=== PATIENT | female | born 1955 | race Caucasian/White ===

== ENCOUNTER → 2018-09-21 | Outpatient (REF) | payer OTHER ==
[2018-09-23 00:07] LABS: Lyme Disease IgG/IgM Antibodie <0.91 ISR (0.00-0.90); Lyme Disease IgM Ab Quantitati <0.80 index (0.00-0.79)
== END ==
LOC: M LAB REF 12:13
DX: Z11.59 Encounter for screening for other viral diseases (principal)

== ENCOUNTER → 2021-10-19 | Outpatient (REF) | payer OTHER ==
[2021-10-19 18:56] LABS: HEPATITIS B CORE ANTIBODY IGM NEGATIVE (NEGATIVE); HEPATITIS B SURFACE ANTIGEN NEGATIVE (NEGATIVE); HEPATITIS C VIRUS ABY INDEX 0.1 INDEX (<0.8)
== END ==
LOC: M LAB REF 16:15
PROVIDERS: ATTEND Registered Nurse
DX: R94.5 Abnormal results of liver function studies (principal)

== ENCOUNTER 2022-12-30 12:04 | Observation (INO) | payer MEDICARE, OTHER ==
[~2022-12-30] VITALS: Ht 160 cm; Wt 90.9 kg
[2022-12-30 13:09] LABS: BASO % 0.3 % (0.0-1.0); EOS # 0.1 10^3/uL (0.0-0.5); EOS % 0.6 % (0.0-3.0); HEMATOCRIT 46.6 % (36.0-47.0); HEMOGLOBIN 15.8 g/dl (12.0-15.5); LYMPH % 6.9 % (24.0-44.0); MEAN CORPUSCULAR HEMOGLOBIN 31.3 pg (27.0-33.0); MEAN CORPUSCULAR HGB CONC 33.9 g/dl (32.0-36.5); MEAN CORPUSCULAR VOLUME 92.3 fl (80.0-96.0); MONO % 11.4 % (2.0-8.0); NEUTROPHILS # 11.1 10^3/uL (1.5-8.5); NEUTROPHILS % 79.5 % (36.0-66.0); PLATELET COUNT, AUTOMATED 456 10^3/uL (150-450); RED BLOOD COUNT 5.05 10^6/uL (4.00-5.40)
[2022-12-30 13:39] LABS: MONO # 1.6 10^3/uL (0.0-0.8)
[2022-12-30 13:44] LABS: ALBUMIN 3.8 G/DL (3.2-5.2); ALKALINE PHOSPHATASE 68 U/L (46-116); ALT/SGPT 90 U/L (7.0-40); AST/SGOT 42 U/L (<34); BILIRUBIN,DIRECT 0.5 MG/DL (<0.4); BILIRUBIN,TOTAL 1.5 MG/DL (0.3-1.2); BLOOD UREA NITROGEN 20 MG/DL (9-23); CALCIUM LEVEL 9.3 MG/DL (8.3-10.6); CARBON DIOXIDE LEVEL 25 MMOL/L (20-31); CHLORIDE LEVEL 103 MMOL/L (98-107); CREATININE FOR GFR 0.88 MG/DL (0.55-1.30); GLOMERULAR FILTRATION RATE > 60.0 (>45); GLUCOSE, FASTING 114 MG/DL (74-106); POTASSIUM SERUM 4.2 MMOL/L (3.5-5.1); SODIUM LEVEL 136 MMOL/L (136-145); TOTAL PROTEIN 6.5 G/DL (5.7-8.2)
[2022-12-30 14:06] LABS: RSV AMPLIFICATION NEGATIVE (NEGATIVE)
[2022-12-30] MEDS ORDERED: SENN-50 PO (15:08)
[2022-12-30] MEDS ORDERED: COLA100C5 PO (15:08)
[2022-12-30] MEDS ORDERED: BACT800T5 PO (15:08)
[2022-12-30] MEDS ORDERED: KEPP1TAB PO (15:08)
[2022-12-30] MEDS ORDERED: SPIR-10 PO (15:08)
[2022-12-30] MEDS ORDERED: DEXA1TA PO (15:08)
[2022-12-30] MEDS ORDERED: C 50TAB PO (15:08)
[2022-12-30] MEDS ORDERED: TOPI25TA10 PO (15:08)
[2022-12-30] MEDS ORDERED: VITA1CAP4 PO (15:08)
[2022-12-30] MEDS ORDERED: BISA10SU4 PR (15:08)
[2022-12-30] MEDS ORDERED: MILKSUS3 PO (15:08)
[2022-12-30] MEDS ORDERED: HEPA100I26 SC (15:08)
[2022-12-30] MEDS ORDERED: RA T500C2 PO (15:08)
[2022-12-30] MEDS ORDERED: BACI1CAP PO (15:08)
[2022-12-30] MEDS ORDERED: PANT40TA29 PO (15:08)
[2022-12-30] MEDS ORDERED: APAP325T4 PO (15:08)
[2022-12-30] MEDS ORDERED: HOME MED LIST COMPLETE! XX SCH (15:10)
[2022-12-30 17:15] VITALS: BP 106/83
[2022-12-30] MEDS ORDERED: BACTRIM 160MG/800MG DS TAB PO SCH (21:00)
[2022-12-30] MEDS ORDERED: MOM 30ML SUSPENSION UDC PO SCH (21:00)
[2022-12-30] MEDS ORDERED: SENOKOT S TAB PO SCH (21:00)
[2022-12-30 21:55] VITALS: BP 118/78
[2022-12-30] MEDS: levETIRAcetam 250MG TABLET (KEPPRA) PO SCH (22:05)
[2022-12-30] MEDS: DOCUSATE SODIUM 100MG CAPSULE PO SCH (22:05)
[2022-12-31 06:00] VITALS: BP 137/87
[2022-12-31 08:24] LABS: BASO # 0.1 10^3/uL (0.0-0.2); BASO % 0.4 % (0.0-1.0); EOS # 0.1 10^3/uL (0.0-0.5); EOS % 0.5 % (0.0-3.0); HEMATOCRIT 43.8 % (36.0-47.0); HEMOGLOBIN 14.6 g/dl (12.0-15.5); LYMPH # 1.2 10^3/uL (1.5-5.0); LYMPH % 9.7 % (24.0-44.0); MEAN CORPUSCULAR HGB CONC 33.3 g/dl (32.0-36.5); MONO # 1.1 10^3/uL (0.0-0.8); MONO % 8.3 % (2.0-8.0); NEUTROPHILS # 10.2 10^3/uL (1.5-8.5); NEUTROPHILS % 79.8 % (36.0-66.0); PLATELET COUNT, AUTOMATED 393 10^3/uL (150-450); RED BLOOD COUNT 4.71 10^6/uL (4.00-5.40); WHITE BLOOD COUNT 12.7 10^3/uL (4.0-10.0)
[2022-12-31] MEDS ORDERED: TOPIRAMATE (TopAMAX) 25 MG TAB PO SCH (09:00)
[2022-12-31] MEDS ORDERED: ASCORBIC ACID 500 MG TAB PO SCH (09:00)
[2022-12-31] MEDS ORDERED: SPIRONOLACTONE 25 MG TAB PO SCH (09:00)
[2022-12-31] MEDS ORDERED: PANTOPRAZOLE 40MG TAB (PROTONIX) PO SCH (09:00)
[2022-12-31] MEDS: levETIRAcetam 250MG TABLET (KEPPRA) PO SCH (10:00)
[2022-12-31] MEDS: DOCUSATE SODIUM 100MG CAPSULE PO SCH (10:01)
[2023-01-01 16:08] LABS: LEVETIRACETAM (KEPPRA) 20.5 ug/mL (10.0-40.0); TOPIRAMATE LEVEL <1.5 ug/mL (2.0-25.0)
[2023-01-31] MEDS ORDERED: PROP10TA56 PO (11:06)
[2023-02-06] MEDS ORDERED: TEMO140C14 PO (15:29)
[2023-02-06] MEDS ORDERED: TEMO5CAP17 PO (15:32)
[2023-02-25] MEDS ORDERED: BACT400T PO (14:51)
[2023-02-25] MEDS ORDERED: ONDA8TAB8 PO (14:59)
[2023-02-28] MEDS ORDERED: ONDA8TAB8 PO (13:58)
[2023-02-28] MEDS ORDERED: BACT400T PO (13:58)
[2023-03-06] MEDS ORDERED: ONDA8TAB8 PO (13:12)
== END 2022-12-31 12:40 ==
LOC: M ED 12:04 → M ED INP 14:43 → ENRESERV 16:09 → M MS5PR 17:05
PROVIDERS: ADMIT Internal Medicine Nephrology; ATTEND Internal Medicine
DX: D72.829 Elevated white blood cell count, unspecified (principal); C71.9 Malignant neoplasm of brain, unspecified; Z98.890 Other specified postprocedural states; I69.851 Hemiplegia and hemiparesis following other cerebrovascular disease affecting right dominant side; I69.820 Aphasia following other cerebrovascular disease; R53.1 Weakness; R74.01 Elevation of levels of liver transaminase levels; K76.89 Other specified diseases of liver; I10 Essential (primary) hypertension; E66.9 Obesity, unspecified; Z87.891 Personal history of nicotine dependence; Z79.899 Other long term (current) drug therapy; Z79.2 Long term (current) use of antibiotics

== ENCOUNTER 2022-12-30 15:16 | Inpatient (IN) | payer MEDICARE, OTHER ==
[~2022-12-30] VITALS: Ht 160 cm; Wt 86.3 kg
[~2022-12-30 15:16] MED LIST: APAP325T4 PO; BACI1CAP PO; BACT800T5 PO; BISA10SU4 PR; C 50TAB PO; COLA100C5 PO; DEXA1TA PO; HEPA100I26 SC; KEPP1TAB PO; MILKSUS3 PO; PANT40TA29 PO; RA T500C2 PO; SENN-50 PO; SPIR-10 PO; TOPI25TA10 PO; VITA1CAP4 PO
[2022-12-31 12:50] VITALS: BP 143/82
[2022-12-31] MEDS ORDERED: ONDANSETRON 4MG TAB PO PRN (14:00)
[2022-12-31] MEDS ORDERED: ACETAMINOPHEN TAB 650MG DOSE (2X325MG) PO PRN (14:00)
[2022-12-31 14:30] VITALS: BP 148/75
[2022-12-31] MEDS: REMEDY PHYTOPLEX Z-GUARD PASTE 113GM TUBE (FROM STOREROOM PRODUCT) TOP SCH ×2 (16:00→21:00)
[2022-12-31] MEDS: LACTOBACILLUS ACIDOPHILUS CAP (BACID) PO SCH (17:16)
[2022-12-31] MEDS: PROPRANOLOL 10 MG TAB PO SCH ×2 (17:16→20:07)
[2022-12-31 20:00] VITALS: BP 128/84
[2022-12-31] MEDS: levETIRAcetam 250MG TABLET (KEPPRA) PO SCH (20:07)
[2022-12-31] MEDS: PANTOPRAZOLE 40MG TAB (PROTONIX) PO SCH (20:07)
[2022-12-31] MEDS: SENNA 8.6 MG TAB (SENOKOT) PO SCH (21:00)
[2022-12-31] MEDS: DOCUSATE SODIUM 100MG CAPSULE PO SCH (21:00)
[2023-01-01 06:00] VITALS: BP 138/82
[2023-01-01 07:29] LABS: BASO # 0.1 10^3/uL (0.0-0.2); BASO % 0.4 % (0.0-1.0); EOS # 0.1 10^3/uL (0.0-0.5); EOS % 0.7 % (0.0-3.0); HEMATOCRIT 43.8 % (36.0-47.0); HEMOGLOBIN 14.7 g/dl (12.0-15.5); LYMPH # 1.6 10^3/uL (1.5-5.0); LYMPH % 10.8 % (24.0-44.0); MEAN CORPUSCULAR HEMOGLOBIN 31.1 pg (27.0-33.0); MEAN CORPUSCULAR HGB CONC 33.6 g/dl (32.0-36.5); MEAN CORPUSCULAR VOLUME 92.8 fl (80.0-96.0); MONO # 1.3 10^3/uL (0.0-0.8); MONO % 8.4 % (2.0-8.0); NEUTROPHILS # 11.8 10^3/uL (1.5-8.5); NEUTROPHILS % 77.9 % (36.0-66.0); PLATELET COUNT, AUTOMATED 409 10^3/uL (150-450); RED BLOOD COUNT 4.72 10^6/uL (4.00-5.40); WHITE BLOOD COUNT 15.1 10^3/uL (4.0-10.0)
[2023-01-01] MEDS: ASCORBIC ACID 500 MG TAB PO SCH (07:52)
[2023-01-01] MEDS: levETIRAcetam 250MG TABLET (KEPPRA) PO SCH ×2 (07:53→21:22)
[2023-01-01] MEDS: PROPRANOLOL 10 MG TAB PO SCH ×3 (07:53→21:22)
[2023-01-01] MEDS: PANTOPRAZOLE 40MG TAB (PROTONIX) PO SCH ×2 (07:53→21:21)
[2023-01-01] MEDS: DOCUSATE SODIUM 100MG CAPSULE PO SCH ×2 (07:53→21:21)
[2023-01-01] MEDS: LACTOBACILLUS ACIDOPHILUS CAP (BACID) PO SCH ×2 (07:53→18:00)
[2023-01-01] MEDS: SPIRONOLACTONE 25 MG TAB PO SCH (07:53)
[2023-01-01] MEDS: TOPIRAMATE (TopAMAX) 25 MG TAB PO SCH (07:54)
[2023-01-01] MEDS: REMEDY PHYTOPLEX Z-GUARD PASTE 113GM TUBE (FROM STOREROOM PRODUCT) TOP SCH ×3 (07:54→21:00)
[2023-01-01 08:04] LABS: ALBUMIN 3.5 G/DL (3.2-5.2); ALKALINE PHOSPHATASE 57 U/L (46-116); ALT/SGPT 76 U/L (7.0-40); AST/SGOT 49 U/L (<34); BILIRUBIN,TOTAL 1.5 MG/DL (0.3-1.2); BLOOD UREA NITROGEN 21 MG/DL (9-23); CALCIUM LEVEL 9.6 MG/DL (8.3-10.6); CARBON DIOXIDE LEVEL 26 MMOL/L (20-31); CHLORIDE LEVEL 107 MMOL/L (98-107); CREATININE FOR GFR 0.82 MG/DL (0.55-1.30); GLOMERULAR FILTRATION RATE > 60.0 (>45); GLUCOSE, FASTING 102 MG/DL (74-106); POTASSIUM SERUM 4.4 MMOL/L (3.5-5.1); SODIUM LEVEL 138 MMOL/L (136-145)
[2023-01-01 13:49] VITALS: BP 145/78
[2023-01-01] MEDS: HEPARIN SOD (PORCINE) 5000UNITS/ML 1ML VIAL/SYRINGE SQ SCH ×2 (14:32→21:23)
[2023-01-01 15:46] VITALS: BP 138/90
[2023-01-01] MEDS: SENNA 8.6 MG TAB (SENOKOT) PO SCH (21:00)
[2023-01-01 21:16] VITALS: BP 142/96
[2023-01-02 05:20] VITALS: BP_SYST 112; BP_SYST 132; BP_DIAS 57; BP_DIAS 88
[2023-01-02] MEDS: SPIRONOLACTONE 25 MG TAB PO SCH (08:14)
[2023-01-02] MEDS: LACTOBACILLUS ACIDOPHILUS CAP (BACID) PO SCH ×2 (08:14→17:01)
[2023-01-02] MEDS: TOPIRAMATE (TopAMAX) 25 MG TAB PO SCH (08:14)
[2023-01-02] MEDS: ASCORBIC ACID 500 MG TAB PO SCH (08:14)
[2023-01-02] MEDS: PANTOPRAZOLE 40MG TAB (PROTONIX) PO SCH ×2 (08:14→20:32)
[2023-01-02] MEDS: HEPARIN SOD (PORCINE) 5000UNITS/ML 1ML VIAL/SYRINGE SQ SCH ×2 (08:14→20:33)
[2023-01-02] MEDS: levETIRAcetam 250MG TABLET (KEPPRA) PO SCH ×2 (08:15→20:33)
[2023-01-02] MEDS: PROPRANOLOL 10 MG TAB PO SCH ×3 (08:15→20:32)
[2023-01-02] MEDS: DOCUSATE SODIUM 100MG CAPSULE PO SCH ×2 (08:15→20:32)
[2023-01-02] MEDS: REMEDY PHYTOPLEX Z-GUARD PASTE 113GM TUBE (FROM STOREROOM PRODUCT) TOP SCH ×3 (08:16→20:33)
[2023-01-02 14:50] VITALS: BP 132/79
[2023-01-02 20:00] VITALS: BP 119/69
[2023-01-02] MEDS: SENNA 8.6 MG TAB (SENOKOT) PO SCH (20:32)
[2023-01-03 06:00] VITALS: BP 142/90
[2023-01-03 06:18] LABS: BASO # 0.1 10^3/uL (0.0-0.2); BASO % 0.6 % (0.0-1.0); EOS % 0.2 % (0.0-3.0); HEMATOCRIT 41.5 % (36.0-47.0); HEMOGLOBIN 13.9 g/dl (12.0-15.5); LYMPH # 1.1 10^3/uL (1.5-5.0); LYMPH % 9.8 % (24.0-44.0); MEAN CORPUSCULAR HGB CONC 33.5 g/dl (32.0-36.5); MEAN CORPUSCULAR VOLUME 92.6 fl (80.0-96.0); MONO # 0.8 10^3/uL (0.0-0.8); MONO % 7.1 % (2.0-8.0); NEUTROPHILS # 8.9 10^3/uL (1.5-8.5); NEUTROPHILS % 81.2 % (36.0-66.0); PLATELET COUNT, AUTOMATED 351 10^3/uL (150-450); RED BLOOD COUNT 4.48 10^6/uL (4.00-5.40); WHITE BLOOD COUNT 10.9 10^3/uL (4.0-10.0)
[2023-01-03 06:40] LABS: BLOOD UREA NITROGEN 19 MG/DL (9-23); CALCIUM LEVEL 9.4 MG/DL (8.3-10.6); CARBON DIOXIDE LEVEL 24 MMOL/L (20-31); CHLORIDE LEVEL 107 MMOL/L (98-107); CREATININE FOR GFR 0.71 MG/DL (0.55-1.30); GLOMERULAR FILTRATION RATE > 60.0 (>45); GLUCOSE, FASTING 114 MG/DL (74-106); POTASSIUM SERUM 4.4 MMOL/L (3.5-5.1); SODIUM LEVEL 140 MMOL/L (136-145)
[2023-01-03] MEDS: REMEDY PHYTOPLEX Z-GUARD PASTE 113GM TUBE (FROM STOREROOM PRODUCT) TOP SCH ×3 (09:00→21:00)
[2023-01-03] MEDS ORDERED: ESCITALOPRAM OXALATE 10 MG TAB (LEXAPRO) PO SCH (09:00)
[2023-01-03] MEDS: ASCORBIC ACID 500 MG TAB PO SCH (09:10)
[2023-01-03] MEDS: TOPIRAMATE (TopAMAX) 25 MG TAB PO SCH (09:10)
[2023-01-03] MEDS: SPIRONOLACTONE 25 MG TAB PO SCH (09:11)
[2023-01-03] MEDS: PANTOPRAZOLE 40MG TAB (PROTONIX) PO SCH ×2 (09:11→21:09)
[2023-01-03] MEDS: levETIRAcetam 250MG TABLET (KEPPRA) PO SCH ×2 (09:11→21:09)
[2023-01-03] MEDS: PROPRANOLOL 10 MG TAB PO SCH ×3 (09:11→21:09)
[2023-01-03] MEDS: LACTOBACILLUS ACIDOPHILUS CAP (BACID) PO SCH ×2 (09:11→17:17)
[2023-01-03] MEDS: DOCUSATE SODIUM 100MG CAPSULE PO SCH ×3 (09:11→21:09)
[2023-01-03] MEDS: HEPARIN SOD (PORCINE) 5000UNITS/ML 1ML VIAL/SYRINGE SQ SCH ×2 (09:12→21:10)
[2023-01-03 14:00] VITALS: BP 123/74
[2023-01-03 20:00] VITALS: BP 154/82
[2023-01-03] MEDS: SENNA 8.6 MG TAB (SENOKOT) PO SCH ×2 (21:00→21:09)
[2023-01-04 05:35] VITALS: BP 165/88
[2023-01-04 05:59] VITALS: BP_SYST 132; BP_SYST 156; BP_DIAS 82; BP_DIAS 92
[2023-01-04] MEDS: SPIRONOLACTONE 25 MG TAB PO SCH (07:51)
[2023-01-04] MEDS: HEPARIN SOD (PORCINE) 5000UNITS/ML 1ML VIAL/SYRINGE SQ SCH ×2 (07:51→20:24)
[2023-01-04] MEDS: DOCUSATE SODIUM 100MG CAPSULE PO SCH ×2 (07:51→20:27)
[2023-01-04] MEDS: PANTOPRAZOLE 40MG TAB (PROTONIX) PO SCH ×2 (07:51→20:25)
[2023-01-04] MEDS: LACTOBACILLUS ACIDOPHILUS CAP (BACID) PO SCH ×2 (07:52→17:55)
[2023-01-04] MEDS: PROPRANOLOL 10 MG TAB PO SCH ×3 (07:52→20:26)
[2023-01-04] MEDS: ASCORBIC ACID 500 MG TAB PO SCH (07:52)
[2023-01-04] MEDS: levETIRAcetam 250MG TABLET (KEPPRA) PO SCH ×2 (07:52→20:25)
[2023-01-04] MEDS: TOPIRAMATE (TopAMAX) 25 MG TAB PO SCH (07:52)
[2023-01-04] MEDS: REMEDY PHYTOPLEX Z-GUARD PASTE 113GM TUBE (FROM STOREROOM PRODUCT) TOP SCH ×3 (07:53→20:27)
[2023-01-04 13:30] VITALS: BP 119/77
[2023-01-04 20:00] VITALS: BP 122/72
[2023-01-04] MEDS: SENNA 8.6 MG TAB (SENOKOT) PO SCH (20:27)
[2023-01-05 06:00] VITALS: BP 134/70
[2023-01-05] MEDS: levETIRAcetam 250MG TABLET (KEPPRA) PO SCH ×2 (08:53→20:43)
[2023-01-05] MEDS: LACTOBACILLUS ACIDOPHILUS CAP (BACID) PO SCH ×2 (08:53→17:15)
[2023-01-05] MEDS: SPIRONOLACTONE 25 MG TAB PO SCH (08:53)
[2023-01-05] MEDS: DOCUSATE SODIUM 100MG CAPSULE PO SCH ×2 (08:53→21:00)
[2023-01-05] MEDS: PANTOPRAZOLE 40MG TAB (PROTONIX) PO SCH ×2 (08:53→20:43)
[2023-01-05] MEDS: ASCORBIC ACID 500 MG TAB PO SCH (08:54)
[2023-01-05] MEDS: HEPARIN SOD (PORCINE) 5000UNITS/ML 1ML VIAL/SYRINGE SQ SCH ×2 (08:54→20:44)
[2023-01-05] MEDS: PROPRANOLOL 10 MG TAB PO SCH ×3 (08:54→20:43)
[2023-01-05] MEDS: TOPIRAMATE (TopAMAX) 25 MG TAB PO SCH (08:54)
[2023-01-05] MEDS: REMEDY PHYTOPLEX Z-GUARD PASTE 113GM TUBE (FROM STOREROOM PRODUCT) TOP SCH ×3 (08:54→21:00)
[2023-01-05] MEDS: LevoFLOXacin 250 MG TABLET PO SCH (11:41)
[2023-01-05 13:46] VITALS: BP 122/78
[2023-01-05] MEDS ORDERED: LACTOBACILLUS ACIDOPHILUS CAP (BACID) PO SCH (18:00)
[2023-01-05 20:00] VITALS: BP 139/81
[2023-01-05] MEDS: SENNA 8.6 MG TAB (SENOKOT) PO SCH (21:00)
[2023-01-06] MEDS: LevoFLOXacin 250 MG TABLET PO SCH (05:27)
[2023-01-06 06:00] VITALS: BP 132/78
[2023-01-06 06:37] LABS: BASO # 0.1 10^3/uL (0.0-0.2); BASO % 0.6 % (0.0-1.0); EOS % 0.4 % (0.0-3.0); HEMATOCRIT 40.4 % (36.0-47.0); HEMOGLOBIN 13.2 g/dl (12.0-15.5); LYMPH # 0.9 10^3/uL (1.5-5.0); LYMPH % 10.4 % (24.0-44.0); MEAN CORPUSCULAR HEMOGLOBIN 31.1 pg (27.0-33.0); MEAN CORPUSCULAR HGB CONC 32.7 g/dl (32.0-36.5); MEAN CORPUSCULAR VOLUME 95.3 fl (80.0-96.0); MONO # 0.6 10^3/uL (0.0-0.8); MONO % 6.8 % (2.0-8.0); NEUTROPHILS # 6.7 10^3/uL (1.5-8.5); PLATELET COUNT, AUTOMATED 297 10^3/uL (150-450); RED BLOOD COUNT 4.24 10^6/uL (4.00-5.40); WHITE BLOOD COUNT 8.3 10^3/uL (4.0-10.0)
[2023-01-06 06:50] LABS: BLOOD UREA NITROGEN 16 MG/DL (9-23); CALCIUM LEVEL 9.6 MG/DL (8.3-10.6); CARBON DIOXIDE LEVEL 25 MMOL/L (20-31); CHLORIDE LEVEL 107 MMOL/L (98-107); CREATININE FOR GFR 0.67 MG/DL (0.55-1.30); GLOMERULAR FILTRATION RATE > 60.0 (>45); GLUCOSE, FASTING 113 MG/DL (74-106); POTASSIUM SERUM 4.1 MMOL/L (3.5-5.1); SODIUM LEVEL 140 MMOL/L (136-145)
[2023-01-06] MEDS: DOCUSATE SODIUM 100MG CAPSULE PO SCH ×2 (07:56→21:00)
[2023-01-06] MEDS: levETIRAcetam 250MG TABLET (KEPPRA) PO SCH ×2 (08:19→20:01)
[2023-01-06] MEDS: PANTOPRAZOLE 40MG TAB (PROTONIX) PO SCH ×2 (08:19→20:02)
[2023-01-06] MEDS: LACTOBACILLUS ACIDOPHILUS CAP (BACID) PO SCH ×2 (08:19→17:05)
[2023-01-06] MEDS: TOPIRAMATE (TopAMAX) 25 MG TAB PO SCH (08:19)
[2023-01-06] MEDS: SPIRONOLACTONE 25 MG TAB PO SCH (08:19)
[2023-01-06] MEDS: PROPRANOLOL 10 MG TAB PO SCH ×3 (08:19→20:05)
[2023-01-06] MEDS: ASCORBIC ACID 500 MG TAB PO SCH (08:20)
[2023-01-06] MEDS: REMEDY PHYTOPLEX Z-GUARD PASTE 113GM TUBE (FROM STOREROOM PRODUCT) TOP SCH ×3 (08:20→21:00)
[2023-01-06] MEDS: HEPARIN SOD (PORCINE) 5000UNITS/ML 1ML VIAL/SYRINGE SQ SCH ×2 (08:20→20:02)
[2023-01-06 14:00] VITALS: BP 121/78
[2023-01-06 19:43] VITALS: BP 124/78
[2023-01-06] MEDS: SENNA 8.6 MG TAB (SENOKOT) PO SCH (21:00)
[2023-01-07 05:53] VITALS: BP 134/89
[2023-01-07] MEDS: LevoFLOXacin 250 MG TABLET PO SCH (05:56)
[2023-01-07] MEDS: REMEDY PHYTOPLEX Z-GUARD PASTE 113GM TUBE (FROM STOREROOM PRODUCT) TOP SCH ×3 (08:09→20:26)
[2023-01-07] MEDS: HEPARIN SOD (PORCINE) 5000UNITS/ML 1ML VIAL/SYRINGE SQ SCH ×2 (08:25→20:25)
[2023-01-07] MEDS: LACTOBACILLUS ACIDOPHILUS CAP (BACID) PO SCH ×2 (08:25→16:52)
[2023-01-07] MEDS: PANTOPRAZOLE 40MG TAB (PROTONIX) PO SCH ×2 (08:26→20:25)
[2023-01-07] MEDS: ASCORBIC ACID 500 MG TAB PO SCH (08:26)
[2023-01-07] MEDS: levETIRAcetam 250MG TABLET (KEPPRA) PO SCH ×2 (08:26→20:25)
[2023-01-07] MEDS: SPIRONOLACTONE 25 MG TAB PO SCH (08:27)
[2023-01-07] MEDS: PROPRANOLOL 10 MG TAB PO SCH ×3 (08:27→20:25)
[2023-01-07] MEDS: TOPIRAMATE (TopAMAX) 25 MG TAB PO SCH (08:27)
[2023-01-07] MEDS: DOCUSATE SODIUM 100MG CAPSULE PO SCH ×2 (08:28→20:25)
[2023-01-07 14:00] VITALS: BP 125/84
[2023-01-07 20:00] VITALS: BP 138/97
[2023-01-07] MEDS: LINEZOLID 600MG TABLET (ZYVOX) PO SCH (20:24)
[2023-01-07] MEDS: SENNA 8.6 MG TAB (SENOKOT) PO SCH ×2 (20:24→20:27)
[2023-01-08 06:00] VITALS: BP 124/82
[2023-01-08] MEDS: HEPARIN SOD (PORCINE) 5000UNITS/ML 1ML VIAL/SYRINGE SQ SCH ×2 (08:06→20:12)
[2023-01-08] MEDS: levETIRAcetam 250MG TABLET (KEPPRA) PO SCH ×2 (08:07→20:11)
[2023-01-08] MEDS: PANTOPRAZOLE 40MG TAB (PROTONIX) PO SCH ×2 (08:07→20:11)
[2023-01-08] MEDS: ASCORBIC ACID 500 MG TAB PO SCH (08:07)
[2023-01-08] MEDS: LACTOBACILLUS ACIDOPHILUS CAP (BACID) PO SCH ×2 (08:07→17:30)
[2023-01-08] MEDS: DOCUSATE SODIUM 100MG CAPSULE PO SCH ×2 (08:08→20:14)
[2023-01-08] MEDS: TOPIRAMATE (TopAMAX) 25 MG TAB PO SCH (08:08)
[2023-01-08] MEDS: PROPRANOLOL 10 MG TAB PO SCH ×3 (08:08→20:12)
[2023-01-08] MEDS: SPIRONOLACTONE 25 MG TAB PO SCH (08:08)
[2023-01-08] MEDS: LINEZOLID 600MG TABLET (ZYVOX) PO SCH ×2 (08:08→20:11)
[2023-01-08] MEDS: REMEDY PHYTOPLEX Z-GUARD PASTE 113GM TUBE (FROM STOREROOM PRODUCT) TOP SCH ×3 (08:09→20:12)
[2023-01-08 10:55] LABS: BASO # 0.1 10^3/uL (0.0-0.2); BASO % 0.5 % (0.0-1.0); EOS # 0.1 10^3/uL (0.0-0.5); EOS % 0.5 % (0.0-3.0); HEMATOCRIT 42.7 % (36.0-47.0); HEMOGLOBIN 14.3 g/dl (12.0-15.5); LYMPH # 0.7 10^3/uL (1.5-5.0); LYMPH % 6.7 % (24.0-44.0); MEAN CORPUSCULAR HEMOGLOBIN 31.7 pg (27.0-33.0); MEAN CORPUSCULAR HGB CONC 33.5 g/dl (32.0-36.5); MEAN CORPUSCULAR VOLUME 94.7 fl (80.0-96.0); MONO % 9.5 % (2.0-8.0); NEUTROPHILS # 8.8 10^3/uL (1.5-8.5); NEUTROPHILS % 82.2 % (36.0-66.0); PLATELET COUNT, AUTOMATED 330 10^3/uL (150-450); RED BLOOD COUNT 4.51 10^6/uL (4.00-5.40); WHITE BLOOD COUNT 10.7 10^3/uL (4.0-10.0)
[2023-01-08 11:29] LABS: BLOOD UREA NITROGEN 20 MG/DL (9-23); CARBON DIOXIDE LEVEL 23 MMOL/L (20-31); CHLORIDE LEVEL 106 MMOL/L (98-107); CREATININE FOR GFR 0.67 MG/DL (0.55-1.30); GLOMERULAR FILTRATION RATE > 60.0 (>45); GLUCOSE, FASTING 109 MG/DL (74-106); POTASSIUM SERUM 4.1 MMOL/L (3.5-5.1); SODIUM LEVEL 139 MMOL/L (136-145)
[2023-01-08 14:06] VITALS: BP 130/84
[2023-01-08 20:00] VITALS: BP 132/70
[2023-01-08] MEDS: SENNA 8.6 MG TAB (SENOKOT) PO SCH (20:14)
[2023-01-09 06:00] VITALS: BP 131/82
[2023-01-09] MEDS: DOCUSATE SODIUM 100MG CAPSULE PO SCH ×2 (07:58→20:04)
[2023-01-09] MEDS: ASCORBIC ACID 500 MG TAB PO SCH (07:58)
[2023-01-09] MEDS: PANTOPRAZOLE 40MG TAB (PROTONIX) PO SCH ×2 (07:58→20:03)
[2023-01-09] MEDS: HEPARIN SOD (PORCINE) 5000UNITS/ML 1ML VIAL/SYRINGE SQ SCH ×2 (07:58→20:07)
[2023-01-09] MEDS: SPIRONOLACTONE 25 MG TAB PO SCH (07:58)
[2023-01-09] MEDS: LACTOBACILLUS ACIDOPHILUS CAP (BACID) PO SCH ×2 (07:58→17:03)
[2023-01-09] MEDS: TOPIRAMATE (TopAMAX) 25 MG TAB PO SCH (07:58)
[2023-01-09] MEDS: levETIRAcetam 250MG TABLET (KEPPRA) PO SCH ×2 (07:59→20:03)
[2023-01-09] MEDS: LINEZOLID 600MG TABLET (ZYVOX) PO SCH ×2 (07:59→20:03)
[2023-01-09] MEDS: REMEDY PHYTOPLEX Z-GUARD PASTE 113GM TUBE (FROM STOREROOM PRODUCT) TOP SCH ×3 (07:59→20:04)
[2023-01-09] MEDS: PROPRANOLOL 10 MG TAB PO SCH ×3 (07:59→20:03)
[2023-01-09 14:00] VITALS: BP 126/69
[2023-01-09 20:00] VITALS: BP 138/88
[2023-01-09] MEDS: SENNA 8.6 MG TAB (SENOKOT) PO SCH (20:04)
[2023-01-10 05:07] VITALS: BP 124/77
[2023-01-10 06:41] LABS: BASO # 0.1 10^3/uL (0.0-0.2); BASO % 0.6 % (0.0-1.0); EOS % 0.2 % (0.0-3.0); HEMATOCRIT 41.3 % (36.0-47.0); HEMOGLOBIN 13.5 g/dl (12.0-15.5); LYMPH # 0.8 10^3/uL (1.5-5.0); LYMPH % 10.1 % (24.0-44.0); MEAN CORPUSCULAR HEMOGLOBIN 30.8 pg (27.0-33.0); MEAN CORPUSCULAR HGB CONC 32.7 g/dl (32.0-36.5); MEAN CORPUSCULAR VOLUME 94.3 fl (80.0-96.0); MONO # 0.6 10^3/uL (0.0-0.8); MONO % 7.5 % (2.0-8.0); NEUTROPHILS # 6.6 10^3/uL (1.5-8.5); NEUTROPHILS % 80.9 % (36.0-66.0); PLATELET COUNT, AUTOMATED 264 10^3/uL (150-450); RED BLOOD COUNT 4.38 10^6/uL (4.00-5.40); WHITE BLOOD COUNT 8.1 10^3/uL (4.0-10.0)
[2023-01-10 06:49] LABS: BLOOD UREA NITROGEN 16 MG/DL (9-23); CALCIUM LEVEL 9.3 MG/DL (8.3-10.6); CARBON DIOXIDE LEVEL 26 MMOL/L (20-31); CHLORIDE LEVEL 107 MMOL/L (98-107); CREATININE FOR GFR 0.65 MG/DL (0.55-1.30); GLOMERULAR FILTRATION RATE > 60.0 (>45); GLUCOSE, FASTING 105 MG/DL (74-106); POTASSIUM SERUM 4.1 MMOL/L (3.5-5.1); SODIUM LEVEL 140 MMOL/L (136-145)
[2023-01-10] MEDS: PANTOPRAZOLE 40MG TAB (PROTONIX) PO SCH ×2 (08:21→20:33)
[2023-01-10] MEDS: TOPIRAMATE (TopAMAX) 25 MG TAB PO SCH (08:21)
[2023-01-10] MEDS: HEPARIN SOD (PORCINE) 5000UNITS/ML 1ML VIAL/SYRINGE SQ SCH (08:21)
[2023-01-10] MEDS: LACTOBACILLUS ACIDOPHILUS CAP (BACID) PO SCH ×2 (08:22→17:40)
[2023-01-10] MEDS: SPIRONOLACTONE 25 MG TAB PO SCH (08:22)
[2023-01-10] MEDS: ASCORBIC ACID 500 MG TAB PO SCH (08:22)
[2023-01-10] MEDS: levETIRAcetam 250MG TABLET (KEPPRA) PO SCH ×2 (08:22→20:34)
[2023-01-10] MEDS: LINEZOLID 600MG TABLET (ZYVOX) PO SCH ×2 (08:22→20:34)
[2023-01-10] MEDS: DOCUSATE SODIUM 100MG CAPSULE PO SCH ×2 (08:23→21:00)
[2023-01-10] MEDS: PROPRANOLOL 10 MG TAB PO SCH ×3 (08:26→20:34)
[2023-01-10] MEDS: REMEDY PHYTOPLEX Z-GUARD PASTE 113GM TUBE (FROM STOREROOM PRODUCT) TOP SCH ×3 (08:26→21:00)
[2023-01-10 14:00] VITALS: BP 122/81
[2023-01-10 20:00] VITALS: BP 120/61
[2023-01-10] MEDS: SENNA 8.6 MG TAB (SENOKOT) PO SCH (21:00)
[2023-01-11 06:00] VITALS: BP 136/92
[2023-01-11] MEDS: DOCUSATE SODIUM 100MG CAPSULE PO SCH ×2 (09:00→21:00)
[2023-01-11] MEDS: REMEDY PHYTOPLEX Z-GUARD PASTE 113GM TUBE (FROM STOREROOM PRODUCT) TOP SCH ×3 (09:00→21:00)
[2023-01-11] MEDS: levETIRAcetam 250MG TABLET (KEPPRA) PO SCH ×2 (09:29→20:17)
[2023-01-11] MEDS: PANTOPRAZOLE 40MG TAB (PROTONIX) PO SCH ×2 (09:30→20:17)
[2023-01-11] MEDS: ASCORBIC ACID 500 MG TAB PO SCH (09:30)
[2023-01-11] MEDS: LINEZOLID 600MG TABLET (ZYVOX) PO SCH ×2 (09:30→20:17)
[2023-01-11] MEDS: PROPRANOLOL 10 MG TAB PO SCH ×3 (09:30→20:17)
[2023-01-11] MEDS: LACTOBACILLUS ACIDOPHILUS CAP (BACID) PO SCH ×2 (09:30→17:10)
[2023-01-11] MEDS: SPIRONOLACTONE 25 MG TAB PO SCH (09:31)
[2023-01-11] MEDS: TOPIRAMATE (TopAMAX) 25 MG TAB PO SCH (09:31)
[2023-01-11 14:00] VITALS: BP 129/79
[2023-01-11 20:00] VITALS: BP 140/83
[2023-01-11] MEDS: SENNA 8.6 MG TAB (SENOKOT) PO SCH (21:00)
[2023-01-12 06:00] VITALS: BP 148/96
[2023-01-12] MEDS: REMEDY PHYTOPLEX Z-GUARD PASTE 113GM TUBE (FROM STOREROOM PRODUCT) TOP SCH ×3 (09:00→21:00)
[2023-01-12] MEDS: DOCUSATE SODIUM 100MG CAPSULE PO SCH ×2 (09:00→21:00)
[2023-01-12] MEDS: PROPRANOLOL 10 MG TAB PO SCH ×3 (09:40→20:12)
[2023-01-12] MEDS: SPIRONOLACTONE 25 MG TAB PO SCH (09:40)
[2023-01-12] MEDS: LACTOBACILLUS ACIDOPHILUS CAP (BACID) PO SCH ×2 (09:40→16:36)
[2023-01-12] MEDS: levETIRAcetam 250MG TABLET (KEPPRA) PO SCH ×2 (09:41→20:12)
[2023-01-12] MEDS: ASCORBIC ACID 500 MG TAB PO SCH (09:41)
[2023-01-12] MEDS: PANTOPRAZOLE 40MG TAB (PROTONIX) PO SCH ×2 (09:41→20:11)
[2023-01-12] MEDS: TOPIRAMATE (TopAMAX) 25 MG TAB PO SCH (09:41)
[2023-01-12] MEDS: LINEZOLID 600MG TABLET (ZYVOX) PO SCH (09:42)
[2023-01-12 13:44] VITALS: BP 117/75
[2023-01-12 20:00] VITALS: BP 135/89
[2023-01-12] MEDS: SENNA 8.6 MG TAB (SENOKOT) PO SCH (21:00)
[2023-01-13 06:00] VITALS: BP 136/88
[2023-01-13 07:26] LABS: BASO % 0.3 % (0.0-1.0); EOS % 0.1 % (0.0-3.0); HEMATOCRIT 43.6 % (36.0-47.0); HEMOGLOBIN 14.5 g/dl (12.0-15.5); LYMPH # 0.7 10^3/uL (1.5-5.0); LYMPH % 9.1 % (24.0-44.0); MEAN CORPUSCULAR HEMOGLOBIN 31.7 pg (27.0-33.0); MEAN CORPUSCULAR HGB CONC 33.3 g/dl (32.0-36.5); MEAN CORPUSCULAR VOLUME 95.4 fl (80.0-96.0); MONO # 0.5 10^3/uL (0.0-0.8); MONO % 7.1 % (2.0-8.0); NEUTROPHILS # 6.1 10^3/uL (1.5-8.5); PLATELET COUNT, AUTOMATED 243 10^3/uL (150-450); RED BLOOD COUNT 4.57 10^6/uL (4.00-5.40); WHITE BLOOD COUNT 7.4 10^3/uL (4.0-10.0)
[2023-01-13 08:19] LABS: BLOOD UREA NITROGEN 18 MG/DL (9-23); CALCIUM LEVEL 9.3 MG/DL (8.3-10.6); CARBON DIOXIDE LEVEL 24 MMOL/L (20-31); CHLORIDE LEVEL 107 MMOL/L (98-107); CREATININE FOR GFR 0.59 MG/DL (0.55-1.30); GLOMERULAR FILTRATION RATE > 60.0 (>45); GLUCOSE, FASTING 99 MG/DL (74-106); SODIUM LEVEL 140 MMOL/L (136-145)
[2023-01-13] MEDS: DOCUSATE SODIUM 100MG CAPSULE PO SCH ×2 (09:00→20:09)
[2023-01-13] MEDS: REMEDY PHYTOPLEX Z-GUARD PASTE 113GM TUBE (FROM STOREROOM PRODUCT) TOP SCH ×3 (09:00→20:09)
[2023-01-13] MEDS: ASCORBIC ACID 500 MG TAB PO SCH (10:04)
[2023-01-13] MEDS: LACTOBACILLUS ACIDOPHILUS CAP (BACID) PO SCH ×2 (10:04→17:29)
[2023-01-13] MEDS: SPIRONOLACTONE 25 MG TAB PO SCH (10:04)
[2023-01-13] MEDS: TOPIRAMATE (TopAMAX) 25 MG TAB PO SCH (10:04)
[2023-01-13] MEDS: PANTOPRAZOLE 40MG TAB (PROTONIX) PO SCH ×2 (10:04→20:09)
[2023-01-13] MEDS: levETIRAcetam 250MG TABLET (KEPPRA) PO SCH ×2 (10:05→20:08)
[2023-01-13] MEDS: PROPRANOLOL 10 MG TAB PO SCH ×3 (10:05→20:08)
[2023-01-13] MEDS ORDERED: SPIR-10 PO (10:37)
[2023-01-13] MEDS ORDERED: KEPP1TAB PO (10:37)
[2023-01-13] MEDS ORDERED: DEXA1TA PO (10:37)
[2023-01-13] MEDS ORDERED: TOPI25TA10 PO (10:37)
[2023-01-13] MEDS ORDERED: PANT40TA29 PO (10:37)
[2023-01-13 15:01] VITALS: BP 142/88
[2023-01-13 20:00] VITALS: BP 150/88
[2023-01-13] MEDS: SENNA 8.6 MG TAB (SENOKOT) PO SCH (20:09)
[2023-01-14 05:22] VITALS: BP 128/70
[2023-01-14] MEDS: DOCUSATE SODIUM 100MG CAPSULE PO SCH (09:00)
[2023-01-14] MEDS: REMEDY PHYTOPLEX Z-GUARD PASTE 113GM TUBE (FROM STOREROOM PRODUCT) TOP SCH (09:00)
[2023-01-14] MEDS: PANTOPRAZOLE 40MG TAB (PROTONIX) PO SCH (09:48)
[2023-01-14] MEDS: LACTOBACILLUS ACIDOPHILUS CAP (BACID) PO SCH (09:48)
[2023-01-14] MEDS: ASCORBIC ACID 500 MG TAB PO SCH (09:49)
[2023-01-14] MEDS: levETIRAcetam 250MG TABLET (KEPPRA) PO SCH (09:49)
[2023-01-14] MEDS: TOPIRAMATE (TopAMAX) 25 MG TAB PO SCH (09:49)
[2023-01-14] MEDS: SPIRONOLACTONE 25 MG TAB PO SCH (09:49)
[2023-01-14 09:50] VITALS: BP 128/70
[2023-01-14] MEDS: PROPRANOLOL 10 MG TAB PO SCH (09:50)
== END 2023-01-14 10:30 | disposition home or self-care (01) | DRG 55 ==
LOC: M PM&R 12-31 12:45
PROVIDERS: ADMIT Physical Medicine & Rehabilitation; ATTEND Physical Medicine & Rehabilitation
DX: C71.1 Malignant neoplasm of frontal lobe (principal); I69.151 Hemiplegia and hemiparesis following nontraumatic intracerebral hemorrhage affecting right dominant side; N39.0 Urinary tract infection, site not specified; I69.120 Aphasia following nontraumatic intracerebral hemorrhage; G40.909 Epilepsy, unspecified, not intractable, without status epilepticus; I10 Essential (primary) hypertension; R74.01 Elevation of levels of liver transaminase levels; B95.7 Other staphylococcus as the cause of diseases classified elsewhere; R26.89 Other abnormalities of gait and mobility; I69.198 Other sequelae of nontraumatic intracerebral hemorrhage; I69.122 Dysarthria following nontraumatic intracerebral hemorrhage; R00.0 Tachycardia, unspecified; Z79.899 Other long term (current) drug therapy; F41.8 Other specified anxiety disorders

== ENCOUNTER → 2023-01-31 | Outpatient (CLI) | payer MEDICARE, OTHER ==
[~2023-01-31] MED LIST changes: +PROP10TA56 PO; +TEMO140C14 PO; +TEMO5CAP17 PO
== END ==
LOC: M ONCR 10:13
PROVIDERS: ATTEND General Practice
DX: C71.1 Malignant neoplasm of frontal lobe (principal); I10 Essential (primary) hypertension; K21.9 Gastro-esophageal reflux disease without esophagitis; Z79.899 Other long term (current) drug therapy; Z80.6 Family history of leukemia; Z87.891 Personal history of nicotine dependence

== ENCOUNTER 2023-02-10 10:34 | Outpatient (RCR) | payer MEDICARE, OTHER ==
[2023-02-13] MEDS ORDERED: TEMO5CAP17 PO (10:53)
[2023-02-13] MEDS ORDERED: TOPA1TAB PO (11:58)
== END 2023-02-14 ==
LOC: M ONCR 10:34
PROVIDERS: ATTEND General Practice
DX: C71.1 Malignant neoplasm of frontal lobe (principal)

== ENCOUNTER 2023-02-12 11:07 | Outpatient (RCR) | payer MEDICARE, OTHER ==
[2023-02-13] MEDS ORDERED: TEMO5CAP17 PO (10:53)
[2023-02-13] MEDS ORDERED: TOPA1TAB PO (11:58)
== END 2023-02-14 ==
LOC: M PT 11:07
PROVIDERS: ATTEND Physical Medicine & Rehabilitation
DX: R26.9 Unspecified abnormalities of gait and mobility (principal); R47.1 Dysarthria and anarthria

== ENCOUNTER 2023-03-12 11:30 | Outpatient (RCR) | payer MEDICARE, OTHER ==
[~2023-03-12 11:30] MED LIST changes: +BACT400T PO; +ONDA8TAB8 PO; +TOPA1TAB PO
[2023-03-14] MEDS ORDERED: DEXA1TA PO ×2 (11:53→16:32)
== END 2023-03-16 ==
LOC: M ST 11:30
PROVIDERS: ATTEND Physical Medicine & Rehabilitation
DX: R26.9 Unspecified abnormalities of gait and mobility (principal); G93.9 Disorder of brain, unspecified; R47.1 Dysarthria and anarthria

== ENCOUNTER 2023-03-14 11:00 | Outpatient (RCR) | payer MEDICARE, MEDICAID, OTHER ==
[2023-03-14] MEDS ORDERED: DEXA1TA PO ×2 (11:53→16:32)
== END 2023-03-16 ==
LOC: M ONCR 11:00
PROVIDERS: ATTEND General Practice
DX: C71.1 Malignant neoplasm of frontal lobe (principal)

== ENCOUNTER 2023-03-26 12:30 | Outpatient (RCR) | payer MEDICARE, OTHER ==
[2023-03-28] MEDS ORDERED: BACT400T PO (10:34)
[2023-04-01] MEDS ORDERED: DEXA4TA PO (12:23)
[2023-04-03] MEDS ORDERED: DEXA4TA PO (11:55)
[2023-04-07] MEDS ORDERED: DEXA4TA PO ×2 (11:56→12:45)
[2023-04-08] MEDS ORDERED: DEXA4TA PO (12:53)
[2023-04-08] MEDS ORDERED: ONDA8TAB8 PO (15:17)
[2023-04-09] MEDS ORDERED: MIRA1POW3 PO (15:32)
[2023-04-09] MEDS ORDERED: VITA100093 PO (15:32)
[2023-04-10] MEDS ORDERED: KEPP250T5 PO (07:50)
== END 2023-04-16 ==
LOC: M OT 12:30
PROVIDERS: ATTEND Physical Medicine & Rehabilitation
DX: R26.89 Other abnormalities of gait and mobility (principal)

== ENCOUNTER 2023-04-09 11:31 | Inpatient (IN) | payer MEDICARE, OTHER ==
[~2023-04-09] VITALS: Ht 160 cm; Wt 95.8 kg
[~2023-04-09 11:31] MED LIST changes: +DEXA4TA PO
[2023-04-09 13:14] LABS: BASO % 0.2 % (0.0-1.0); EOS % 0.1 % (0.0-3.0); HEMATOCRIT 40.5 % (36.0-47.0); HEMOGLOBIN 14.7 g/dl (12.0-15.5); LYMPH # 0.1 10^3/uL (1.5-5.0); LYMPH % 1.2 % (24.0-44.0); MEAN CORPUSCULAR HEMOGLOBIN 34.9 pg (27.0-33.0); MEAN CORPUSCULAR HGB CONC 36.3 g/dl (32.0-36.5); MEAN CORPUSCULAR VOLUME 96.2 fl (80.0-96.0); MONO # 0.8 10^3/uL (0.0-0.8); MONO % 7.3 % (2.0-8.0); NEUTROPHILS # 9.3 10^3/uL (1.5-8.5); NEUTROPHILS % 89.5 % (36.0-66.0); RED BLOOD COUNT 4.21 10^6/uL (4.00-5.40); WHITE BLOOD COUNT 10.4 10^3/uL (4.0-10.0)
[2023-04-09 13:18] LABS: BLOOD UREA NITROGEN 34 MG/DL (9-23); CALCIUM LEVEL 9.4 MG/DL (8.3-10.6); CARBON DIOXIDE LEVEL 23 MMOL/L (20-31); CHLORIDE LEVEL 106 MMOL/L (98-107); CK-MB VALUE MASS 4.6 NG/ML (<3.6); CPK CREATINE PHOSPHOKINASE 38 U/L (34-145); GLOMERULAR FILTRATION RATE > 60.0 (>45); GLUCOSE, FASTING 241 MG/DL (74-106); MAGNESIUM LEVEL 2.2 MG/DL (1.8-2.4); POTASSIUM SERUM 3.9 MMOL/L (3.5-5.1); SODIUM LEVEL 136 MMOL/L (136-145)
[2023-04-09 13:20] LABS: FREE T4 0.78 NG/DL (0.89-1.76)
[2023-04-09 13:23] LABS: INR 0.99; PARTIAL THROMBOPLASTIN TIME 22.3 SECONDS (24.8-34.2); PROTHROMBIN TIME 13.3 SECONDS (12.5-14.5)
[2023-04-09 13:53] LABS: PLATELET COUNT, AUTOMATED 58 10^3/uL (150-450)
[2023-04-09 14:40] LABS: CK-MB VALUE MASS 4.6 NG/ML (<3.6)
[2023-04-09 14:42] LABS: MB/CK RELATIVE INDEX 13.14 (< OR =4)
[2023-04-09 14:51] LABS: RSV AMPLIFICATION NEGATIVE (NEGATIVE)
[2023-04-09] MEDS ORDERED: levETIRAcetam INJection 1,000 MG in D5W 100 ML IV ONE (14:55)
[2023-04-09] MEDS ORDERED: NS 500 ML IV ONE (15:10)
[2023-04-09] MEDS ORDERED: LORazepam 2 MG/ML 1ML VIAL IV PRN (15:10)
[2023-04-09] MEDS ORDERED: D5W/0.45% SODIUM CHLORIDE 1,000 ML IV SCH (15:20)
[2023-04-09] MEDS ORDERED: VITA100093 PO (15:32)
[2023-04-09] MEDS ORDERED: MIRA1POW3 PO (15:32)
[2023-04-09] MEDS ORDERED: HOME MED LIST COMPLETE! XX SCH (15:35)
[2023-04-09] MEDS ORDERED: MIRALAX *UNIT DOSE* 17GM PACKET PO PRN (16:05)
[2023-04-09] MEDS ORDERED: ACETAMINOPHEN TAB 650MG DOSE (2X325MG) PO PRN (16:05)
[2023-04-09 18:10] VITALS: BP 139/94; TEMP 97; O2SAT 95
[2023-04-09] MEDS: PROPRANOLOL 10 MG TAB PO SCH ×2 (18:25→20:24)
[2023-04-09 19:38] VITALS: BP 110/76; TEMP 96.9; O2SAT 93
[2023-04-09] MEDS: dexAMETHasone 4 MG TAB PO SCH (20:21)
[2023-04-09] MEDS ORDERED: PROPRANOLOL 10 MG TAB PO SCH (21:00)
[2023-04-10] VITALS (15 sets, daily range): BP systolic 112–190; BP diastolic 59–118; TEMP 96.4–98.1; O2SAT 94–97
[2023-04-10 02:40] LABS: MAGNESIUM LEVEL 1.9 MG/DL (1.8-2.4); POTASSIUM SERUM 4.3 MMOL/L (3.5-5.1)
[2023-04-10] MEDS ORDERED: levETIRAcetam INJection 1,000 MG in D5W 100 ML IV SCH ×4 (03:00)
[2023-04-10 05:37] LABS: HEMATOCRIT 37.8 % (36.0-47.0); HEMOGLOBIN 13.5 g/dl (12.0-15.5); MEAN CORPUSCULAR HEMOGLOBIN 34.4 pg (27.0-33.0); MEAN CORPUSCULAR HGB CONC 35.7 g/dl (32.0-36.5); MEAN CORPUSCULAR VOLUME 96.4 fl (80.0-96.0); RED BLOOD COUNT 3.92 10^6/uL (4.00-5.40); WHITE BLOOD COUNT 6.5 10^3/uL (4.0-10.0)
[2023-04-10 05:42] LABS: PLATELET COUNT, AUTOMATED 38 10^3/uL (150-450)
[2023-04-10 06:00] LABS: BLOOD UREA NITROGEN 21 MG/DL (9-23); CALCIUM LEVEL 8.9 MG/DL (8.3-10.6); CARBON DIOXIDE LEVEL 23 MMOL/L (20-31); CHLORIDE LEVEL 102 MMOL/L (98-107); CREATININE FOR GFR 0.45 MG/DL (0.55-1.30); GLOMERULAR FILTRATION RATE > 60.0 (>45); GLUCOSE, FASTING 226 MG/DL (74-106); SODIUM LEVEL 135 MMOL/L (136-145)
[2023-04-10] MEDS ORDERED: MAGNESIUM OXIDE 400MG TAB (MAG-OX) PO ONE (06:00)
[2023-04-10 06:29] LABS: APPEARANCE, URINE HAZY (CLEAR); BILIRUBIN, URINE AUTO NEGATIVE (NEGATIVE); COLOR, URINE YELLOW (YELLOW); GLUCOSE, URINE (UA) AUTO 3+ mg/dL (NEGATIVE); KETONE, URINE AUTO TRACE mg/dL (NEGATIVE); PROTEIN, URINE AUTO 1+ mg/dL (NEGATIVE); SPECIFIC GRAVITY URINE AUTO 1.036 (1.002-1.035)
[2023-04-10 06:30] LABS: BACTERIA, URINE AUTO 2+ (NEGATIVE); BLOOD, URINE BLOOD NEGATIVE (NEGATIVE); LEUKOCYTE ESTERASE, URINE AUTO 2+ (NEGATIVE); NITRITE, URINE AUTO POSITIVE (NEGATIVE); RBC, URINE AUTO 6 /HPF (0-3); WBC, URINE AUTO 41 /HPF (0-3)
[2023-04-10 06:31] LABS: CALCIUM OXALATE CRYSTALS SMALL; MUCUS, URINE SMALL (NEGATIVE); SQUAMOUS EPITHELIAL CELL UR AU 1 /HPF (0-6)
[2023-04-10] MEDS ORDERED: KEPP250T5 PO (07:50)
[2023-04-10] MEDS ORDERED: ADENOSINE 6MG 2ML INJECTION IV STA ×3 (08:01→08:13)
[2023-04-10] MEDS: METOPROLOL 5 MG/5 ML VIAL IV SCH ×3 (08:19→08:25)
[2023-04-10] MEDS ORDERED: TEMOZOLOMIDE 140 MG PO SCH (09:00)
[2023-04-10] MEDS: BACTRIM 80MG/400MG TAB PO SCH (09:23)
[2023-04-10] MEDS: levETIRAcetam 250MG TABLET (KEPPRA) PO SCH ×2 (09:23→20:55)
[2023-04-10] MEDS: VITAMIN D 1,000 INTERNATIONAL UNITS TABLET PO SCH (09:23)
[2023-04-10] MEDS: TOPIRAMATE (TopAMAX) 25 MG TAB PO SCH (09:24)
[2023-04-10] MEDS: ASCORBIC ACID 500 MG TAB PO SCH (09:24)
[2023-04-10] MEDS: dexAMETHasone 4 MG TAB PO SCH ×2 (09:25→20:56)
[2023-04-10] MEDS: SPIRONOLACTONE 25 MG TAB PO SCH (09:25)
[2023-04-10] MEDS: PROPRANOLOL 10 MG TAB PO SCH ×3 (09:26→20:56)
[2023-04-10] MEDS: METOPROLOL TART 25 MG TABLET PO SCH ×4 (09:27→23:53)
[2023-04-10] MEDS: TEMOZOLOMIDE 100 MG PO SCH (09:58)
[2023-04-10] MEDS: TEMOZOLOMIDE 20 MG PO SCH (09:58)
[2023-04-10] MEDS: TEMOZOLOMIDE 5 MG PO SCH (09:59)
[2023-04-10] MEDS: ONDANSETRON 4MG ORAL DISINTEGRATING TAB PO SCH (10:37)
[2023-04-10 21:36] LABS: MB/CK RELATIVE INDEX 15.62 (< OR =4)
[2023-04-11 03:08] VITALS: BP 134/84; TEMP 96.8; O2SAT 93
[2023-04-11] MEDS: METOPROLOL TART 25 MG TABLET PO SCH (05:03)
[2023-04-11 05:30] LABS: HEMATOCRIT 37.4 % (36.0-47.0); HEMOGLOBIN 13.3 g/dl (12.0-15.5); MEAN CORPUSCULAR HEMOGLOBIN 34.3 pg (27.0-33.0); MEAN CORPUSCULAR HGB CONC 35.6 g/dl (32.0-36.5); MEAN CORPUSCULAR VOLUME 96.4 fl (80.0-96.0); PLATELET COUNT, AUTOMATED 35 10^3/uL (150-450); RED BLOOD COUNT 3.88 10^6/uL (4.00-5.40); WHITE BLOOD COUNT 6.6 10^3/uL (4.0-10.0)
[2023-04-11 05:55] LABS: BLOOD UREA NITROGEN 25 MG/DL (9-23); CALCIUM LEVEL 8.9 MG/DL (8.3-10.6); CARBON DIOXIDE LEVEL 24 MMOL/L (20-31); CHLORIDE LEVEL 103 MMOL/L (98-107); CK-MB VALUE MASS 5.6 NG/ML (<3.6); CPK CREATINE PHOSPHOKINASE 29 U/L (34-145); CREATININE FOR GFR 0.45 MG/DL (0.55-1.30); GLOMERULAR FILTRATION RATE > 60.0 (>45); GLUCOSE, FASTING 237 MG/DL (74-106); MB/CK RELATIVE INDEX 19.31 (< OR =4); SODIUM LEVEL 136 MMOL/L (136-145)
[2023-04-11 07:26] VITALS: BP 137/98; TEMP 98.4; O2SAT 95
[2023-04-11] MEDS: BACTRIM 80MG/400MG TAB PO SCH (09:03)
[2023-04-11] MEDS: levETIRAcetam 250MG TABLET (KEPPRA) PO SCH ×2 (09:03→20:42)
[2023-04-11] MEDS: TOPIRAMATE (TopAMAX) 25 MG TAB PO SCH (09:04)
[2023-04-11] MEDS: ONDANSETRON 4MG ORAL DISINTEGRATING TAB PO SCH (09:04)
[2023-04-11] MEDS: VITAMIN D 1,000 INTERNATIONAL UNITS TABLET PO SCH (09:04)
[2023-04-11] MEDS: SPIRONOLACTONE 25 MG TAB PO SCH (09:04)
[2023-04-11] MEDS: ASCORBIC ACID 500 MG TAB PO SCH (09:04)
[2023-04-11] MEDS: TEMOZOLOMIDE 5 MG PO SCH (09:05)
[2023-04-11] MEDS: TEMOZOLOMIDE 100 MG PO SCH (09:05)
[2023-04-11] MEDS: TEMOZOLOMIDE 20 MG PO SCH (09:05)
[2023-04-11] MEDS: dexAMETHasone 4 MG TAB PO SCH ×2 (09:05→20:42)
[2023-04-11] MEDS: PROPRANOLOL 10 MG TAB PO SCH ×3 (09:05→20:42)
[2023-04-11] MEDS: METOPROLOL SUCC (TopROL XL) 50MG **XL** TAB PO SCH ×2 (09:06→20:43)
[2023-04-11 12:05] VITALS: BP 129/73; TEMP 97.2; O2SAT 93
[2023-04-11 15:48] VITALS: BP 132/90; TEMP 97.4; O2SAT 95
[2023-04-11 20:39] VITALS: BP 162/93; TEMP 97; O2SAT 97
[2023-04-11 23:49] VITALS: BP 134/82; TEMP 97.4; O2SAT 96
[2023-04-12 04:15] VITALS: BP 139/93; TEMP 98.1; O2SAT 95
[2023-04-12 06:13] LABS: HEMATOCRIT 38.1 % (36.0-47.0); HEMOGLOBIN 13.6 g/dl (12.0-15.5); MEAN CORPUSCULAR HEMOGLOBIN 34.4 pg (27.0-33.0); MEAN CORPUSCULAR HGB CONC 35.7 g/dl (32.0-36.5); MEAN CORPUSCULAR VOLUME 96.5 fl (80.0-96.0); RED BLOOD COUNT 3.95 10^6/uL (4.00-5.40); WHITE BLOOD COUNT 6.7 10^3/uL (4.0-10.0)
[2023-04-12 06:18] LABS: PLATELET COUNT, AUTOMATED 35 10^3/uL (150-450)
[2023-04-12 06:42] LABS: BLOOD UREA NITROGEN 27 MG/DL (9-23); CALCIUM LEVEL 8.9 MG/DL (8.3-10.6); CARBON DIOXIDE LEVEL 22 MMOL/L (20-31); CHLORIDE LEVEL 102 MMOL/L (98-107); CREATININE FOR GFR 0.44 MG/DL (0.55-1.30); GLOMERULAR FILTRATION RATE > 60.0 (>45); GLUCOSE, FASTING 261 MG/DL (74-106); SODIUM LEVEL 136 MMOL/L (136-145)
[2023-04-12 07:37] VITALS: BP 127/99; TEMP 96.5; O2SAT 97
[2023-04-12] MEDS: MIRALAX *UNIT DOSE* 17GM PACKET PO PRN (09:02)
[2023-04-12] MEDS: VITAMIN D 1,000 INTERNATIONAL UNITS TABLET PO SCH (09:02)
[2023-04-12] MEDS: levETIRAcetam 250MG TABLET (KEPPRA) PO SCH ×2 (09:02→20:49)
[2023-04-12] MEDS: TEMOZOLOMIDE 20 MG PO SCH (09:03)
[2023-04-12] MEDS: dexAMETHasone 4 MG TAB PO SCH ×2 (09:03→20:49)
[2023-04-12] MEDS: BACTRIM 80MG/400MG TAB PO SCH (09:03)
[2023-04-12] MEDS: TEMOZOLOMIDE 5 MG PO SCH (09:03)
[2023-04-12] MEDS: ONDANSETRON 4MG ORAL DISINTEGRATING TAB PO SCH (09:03)
[2023-04-12] MEDS: TOPIRAMATE (TopAMAX) 25 MG TAB PO SCH (09:03)
[2023-04-12] MEDS: METOPROLOL SUCC (TopROL XL) 50MG **XL** TAB PO SCH ×2 (09:04→20:51)
[2023-04-12] MEDS: TEMOZOLOMIDE 100 MG PO SCH (09:04)
[2023-04-12] MEDS: SPIRONOLACTONE 25 MG TAB PO SCH (09:04)
[2023-04-12] MEDS: ASCORBIC ACID 500 MG TAB PO SCH (09:04)
[2023-04-12] MEDS: PROPRANOLOL 10 MG TAB PO SCH ×3 (09:04→20:53)
[2023-04-12 13:21] VITALS: O2SAT 98
[2023-04-12 13:30] VITALS: BP 134/75; TEMP 97.5; O2SAT 96
[2023-04-12] MEDS ORDERED: ACETAMINOPHEN 500 MG TAB PO ONE (13:35)
[2023-04-13 05:46] VITALS: BP 120/74; TEMP 97.3; O2SAT 97
[2023-04-13 05:51] LABS: HEMATOCRIT 37.3 % (36.0-47.0); HEMOGLOBIN 13.3 g/dl (12.0-15.5); MEAN CORPUSCULAR HEMOGLOBIN 34.4 pg (27.0-33.0); MEAN CORPUSCULAR HGB CONC 35.7 g/dl (32.0-36.5); MEAN CORPUSCULAR VOLUME 96.4 fl (80.0-96.0); RED BLOOD COUNT 3.87 10^6/uL (4.00-5.40); WHITE BLOOD COUNT 6.7 10^3/uL (4.0-10.0)
[2023-04-13 05:52] LABS: PLATELET COUNT, AUTOMATED 31 10^3/uL (150-450)
[2023-04-13 06:23] LABS: BLOOD UREA NITROGEN 26 MG/DL (9-23); CARBON DIOXIDE LEVEL 22 MMOL/L (20-31); CHLORIDE LEVEL 101 MMOL/L (98-107); CREATININE FOR GFR 0.43 MG/DL (0.55-1.30); GLOMERULAR FILTRATION RATE > 60.0 (>45); GLUCOSE, FASTING 249 MG/DL (74-106); POTASSIUM SERUM 3.9 MMOL/L (3.5-5.1); SODIUM LEVEL 135 MMOL/L (136-145)
[2023-04-13] MEDS: BACTRIM 80MG/400MG TAB PO SCH (09:43)
[2023-04-13] MEDS: ONDANSETRON 4MG ORAL DISINTEGRATING TAB PO SCH (09:44)
[2023-04-13] MEDS: ASCORBIC ACID 500 MG TAB PO SCH (09:44)
[2023-04-13] MEDS: VITAMIN D 1,000 INTERNATIONAL UNITS TABLET PO SCH (09:44)
[2023-04-13] MEDS: SPIRONOLACTONE 25 MG TAB PO SCH (09:44)
[2023-04-13] MEDS: TOPIRAMATE (TopAMAX) 25 MG TAB PO SCH (09:44)
[2023-04-13] MEDS: levETIRAcetam 250MG TABLET (KEPPRA) PO SCH ×2 (09:44→22:35)
[2023-04-13] MEDS: dexAMETHasone 4 MG TAB PO SCH ×2 (09:44→22:34)
[2023-04-13] MEDS: METOPROLOL SUCC (TopROL XL) 50MG **XL** TAB PO SCH ×2 (09:49→22:36)
[2023-04-13] MEDS: PROPRANOLOL 10 MG TAB PO SCH ×3 (09:50→21:00)
[2023-04-13] MEDS: TEMOZOLOMIDE 5 MG PO SCH (11:34)
[2023-04-13] MEDS: TEMOZOLOMIDE 20 MG PO SCH (11:36)
[2023-04-13] MEDS: TEMOZOLOMIDE 100 MG PO SCH (11:36)
[2023-04-13] MEDS: ACETAMINOPHEN 500 MG TAB PO PRN (17:21)
[2023-04-14 06:00] VITALS: BP 108/74; TEMP 97.7; O2SAT 96
[2023-04-14 06:06] LABS: HEMOGLOBIN 13.3 g/dl (12.0-15.5); MEAN CORPUSCULAR HEMOGLOBIN 34.6 pg (27.0-33.0); MEAN CORPUSCULAR HGB CONC 35.9 g/dl (32.0-36.5); MEAN CORPUSCULAR VOLUME 96.4 fl (80.0-96.0); RED BLOOD COUNT 3.84 10^6/uL (4.00-5.40); WHITE BLOOD COUNT 6.6 10^3/uL (4.0-10.0)
[2023-04-14 06:08] LABS: PLATELET COUNT, AUTOMATED 27 10^3/uL (150-450)
[2023-04-14 06:36] LABS: BLOOD UREA NITROGEN 30 MG/DL (9-23); CALCIUM LEVEL 8.6 MG/DL (8.3-10.6); CARBON DIOXIDE LEVEL 23 MMOL/L (20-31); CHLORIDE LEVEL 103 MMOL/L (98-107); CREATININE FOR GFR 0.45 MG/DL (0.55-1.30); GLOMERULAR FILTRATION RATE > 60.0 (>45); GLUCOSE, FASTING 283 MG/DL (74-106); SODIUM LEVEL 135 MMOL/L (136-145)
[2023-04-14] MEDS ORDERED: [UNRECOGNIZED DRUG - OTHER] PO SCH (09:00)
[2023-04-14] MEDS: ONDANSETRON 4MG ORAL DISINTEGRATING TAB PO SCH (10:09)
[2023-04-14] MEDS: TOPIRAMATE (TopAMAX) 25 MG TAB PO SCH (10:09)
[2023-04-14] MEDS: levETIRAcetam 250MG TABLET (KEPPRA) PO SCH ×2 (10:10→22:20)
[2023-04-14] MEDS: BACTRIM 80MG/400MG TAB PO SCH (10:10)
[2023-04-14] MEDS: ASCORBIC ACID 500 MG TAB PO SCH (10:10)
[2023-04-14] MEDS: VITAMIN D 1,000 INTERNATIONAL UNITS TABLET PO SCH (10:10)
[2023-04-14] MEDS: dexAMETHasone 4 MG TAB PO SCH ×2 (10:10→22:17)
[2023-04-14] MEDS: TEMOZOLOMIDE 5 MG PO SCH (10:11)
[2023-04-14] MEDS: PROPRANOLOL 10 MG TAB PO SCH ×3 (10:16→22:20)
[2023-04-14] MEDS: METOPROLOL SUCC (TopROL XL) 50MG **XL** TAB PO SCH ×2 (10:16→22:21)
[2023-04-14] MEDS: SPIRONOLACTONE 25 MG TAB PO SCH (10:16)
[2023-04-14 10:35] LABS: HEMATOCRIT 38.9 % (36.0-47.0); HEMOGLOBIN 13.9 g/dl (12.0-15.5); MEAN CORPUSCULAR HEMOGLOBIN 34.3 pg (27.0-33.0); MEAN CORPUSCULAR HGB CONC 35.7 g/dl (32.0-36.5); PLATELET COUNT, AUTOMATED 29 10^3/uL (150-450); RED BLOOD COUNT 4.05 10^6/uL (4.00-5.40)
[2023-04-14 11:00] LABS: BLOOD UREA NITROGEN 29 MG/DL (9-23); CALCIUM LEVEL 8.9 MG/DL (8.3-10.6); CARBON DIOXIDE LEVEL 22 MMOL/L (20-31); CHLORIDE LEVEL 101 MMOL/L (98-107); CREATININE FOR GFR 0.43 MG/DL (0.55-1.30); GLOMERULAR FILTRATION RATE > 60.0 (>45); GLUCOSE, FASTING 274 MG/DL (74-106); POTASSIUM SERUM 4.2 MMOL/L (3.5-5.1); SODIUM LEVEL 134 MMOL/L (136-145)
[2023-04-15 05:52] VITALS: BP 130/91; TEMP 97.9; O2SAT 96
[2023-04-15 07:03] LABS: HEMOGLOBIN 13.8 g/dl (12.0-15.5); MEAN CORPUSCULAR HEMOGLOBIN 34.8 pg (27.0-33.0); MEAN CORPUSCULAR HGB CONC 36.3 g/dl (32.0-36.5); MEAN CORPUSCULAR VOLUME 95.7 fl (80.0-96.0); RED BLOOD COUNT 3.97 10^6/uL (4.00-5.40); WHITE BLOOD COUNT 6.4 10^3/uL (4.0-10.0)
[2023-04-15 07:23] LABS: BLOOD UREA NITROGEN 33 MG/DL (9-23); CALCIUM LEVEL 8.8 MG/DL (8.3-10.6); CARBON DIOXIDE LEVEL 21 MMOL/L (20-31); CHLORIDE LEVEL 100 MMOL/L (98-107); CREATININE FOR GFR 0.44 MG/DL (0.55-1.30); GLOMERULAR FILTRATION RATE > 60.0 (>45); GLUCOSE, FASTING 300 MG/DL (74-106); POTASSIUM SERUM 4.3 MMOL/L (3.5-5.1); SODIUM LEVEL 134 MMOL/L (136-145)
[2023-04-15 07:26] LABS: PLATELET COUNT, AUTOMATED 26 10^3/uL (150-450)
[2023-04-15] MEDS: ONDANSETRON 4MG ORAL DISINTEGRATING TAB PO SCH (08:08)
[2023-04-15] MEDS: ASCORBIC ACID 500 MG TAB PO SCH (08:09)
[2023-04-15] MEDS: PROPRANOLOL 10 MG TAB PO SCH ×3 (08:09→21:21)
[2023-04-15] MEDS: levETIRAcetam 250MG TABLET (KEPPRA) PO SCH ×2 (08:09→21:20)
[2023-04-15] MEDS: BACTRIM 80MG/400MG TAB PO SCH (08:10)
[2023-04-15] MEDS: METOPROLOL SUCC (TopROL XL) 50MG **XL** TAB PO SCH ×2 (08:10→21:20)
[2023-04-15] MEDS: VITAMIN D 1,000 INTERNATIONAL UNITS TABLET PO SCH (08:10)
[2023-04-15] MEDS: TOPIRAMATE (TopAMAX) 25 MG TAB PO SCH (08:10)
[2023-04-15] MEDS: SPIRONOLACTONE 25 MG TAB PO SCH (08:11)
[2023-04-15] MEDS: dexAMETHasone 4 MG TAB PO SCH ×2 (08:11→21:20)
[2023-04-15] MEDS ORDERED: GLUCOSE 4GM CHEW TABLET PO PRN (18:45)
[2023-04-15] MEDS ORDERED: GLUCAGON INJ 1MG VIAL SC PRN (18:45)
[2023-04-15] MEDS ORDERED: DEXTROSE 50% 50ML SYRINGE IV PRN (18:45)
[2023-04-15 19:28] LABS: D-DIMER QUANT 1532.38 ng/ml (<500)
[2023-04-15 20:00] VITALS: BP 126/79
[2023-04-15 20:07] LABS: HEMOGLOBIN A1c 6.4 % (4.0-6.0)
[2023-04-15] MEDS: SERTRALINE HCL 50 MG TAB PO SCH (21:20)
[2023-04-16 06:00] VITALS: BP 138/100; TEMP 97.9; O2SAT 96
[2023-04-16 07:32] LABS: BASO % 0.2 % (0.0-1.0); EOS % 0.4 % (0.0-3.0); HEMATOCRIT 36.3 % (36.0-47.0); HEMOGLOBIN 13.3 g/dl (12.0-15.5); LYMPH # 0.4 10^3/uL (1.5-5.0); LYMPH % 6.9 % (24.0-44.0); MEAN CORPUSCULAR HEMOGLOBIN 35.1 pg (27.0-33.0); MEAN CORPUSCULAR VOLUME 95.8 fl (80.0-96.0); MONO # 0.3 10^3/uL (0.0-0.8); MONO % 5.1 % (2.0-8.0); NEUTROPHILS # 4.5 10^3/uL (1.5-8.5); NEUTROPHILS % 86.1 % (36.0-66.0); RED BLOOD COUNT 3.79 10^6/uL (4.00-5.40); WHITE BLOOD COUNT 5.3 10^3/uL (4.0-10.0)
[2023-04-16 07:51] LABS: INR 1.11; PROTHROMBIN TIME 14.5 SECONDS (12.5-14.5)
[2023-04-16 07:52] LABS: PARTIAL THROMBOPLASTIN TIME 23.7 SECONDS (24.8-34.2)
[2023-04-16 07:53] LABS: MEAN CORPUSCULAR HGB CONC 36.6 g/dl (32.0-36.5)
[2023-04-16 07:54] LABS: ALBUMIN 3.1 G/DL (3.2-5.2); ALKALINE PHOSPHATASE 70 U/L (46-116); ALT/SGPT 90 U/L (7.0-40); AST/SGOT 28 U/L (<34); BILIRUBIN,TOTAL 2.3 MG/DL (0.3-1.2); BLOOD UREA NITROGEN 34 MG/DL (9-23); CALCIUM LEVEL 8.5 MG/DL (8.3-10.6); CARBON DIOXIDE LEVEL 23 MMOL/L (20-31); CHLORIDE LEVEL 100 MMOL/L (98-107); CREATININE FOR GFR 0.44 MG/DL (0.55-1.30); GLOMERULAR FILTRATION RATE > 60.0 (>45); GLUCOSE, FASTING 288 MG/DL (74-106); PLATELET COUNT, AUTOMATED 25 10^3/uL (150-450); POTASSIUM SERUM 3.9 MMOL/L (3.5-5.1); SODIUM LEVEL 135 MMOL/L (136-145); TOTAL PROTEIN 5.1 G/DL (5.7-8.2)
[2023-04-16] MEDS: levETIRAcetam 250MG TABLET (KEPPRA) PO SCH ×2 (09:25→20:26)
[2023-04-16] MEDS: INSULIN LISPRO (NovoLOG) PER UNIT SC SCH ×3 (09:25→17:44)
[2023-04-16] MEDS: TOPIRAMATE (TopAMAX) 25 MG TAB PO SCH (09:25)
[2023-04-16] MEDS: VITAMIN D 1,000 INTERNATIONAL UNITS TABLET PO SCH (09:26)
[2023-04-16] MEDS: ASCORBIC ACID 500 MG TAB PO SCH (09:26)
[2023-04-16] MEDS: SPIRONOLACTONE 25 MG TAB PO SCH (09:26)
[2023-04-16] MEDS: dexAMETHasone 4 MG TAB PO SCH ×2 (09:26→20:24)
[2023-04-16] MEDS: PANTOPRAZOLE 40MG TAB (PROTONIX) PO SCH (09:26)
[2023-04-16] MEDS: ONDANSETRON 4MG ORAL DISINTEGRATING TAB PO SCH (09:26)
[2023-04-16] MEDS: METOPROLOL SUCC (TopROL XL) 50MG **XL** TAB PO SCH ×2 (09:29→20:27)
[2023-04-16] MEDS: PROPRANOLOL 10 MG TAB PO SCH ×3 (09:29→20:28)
[2023-04-16 09:40] VITALS: BP 132/88; O2SAT 94
[2023-04-16] MEDS: BACTRIM 80MG/400MG TAB PO SCH (11:53)
[2023-04-16 14:00] VITALS: BP 118/81; TEMP 97.9; O2SAT 98
[2023-04-16] MEDS: SERTRALINE HCL 50 MG TAB PO SCH (20:26)
[2023-04-16 21:00] VITALS: BP 102/64; TEMP 98.2; O2SAT 95
[2023-04-17 06:00] VITALS: BP 113/77; TEMP 97.5; O2SAT 95
[2023-04-17 06:02] LABS: EOS % 0.2 % (0.0-3.0); HEMATOCRIT 34.2 % (36.0-47.0); HEMOGLOBIN 12.6 g/dl (12.0-15.5); LYMPH # 0.4 10^3/uL (1.5-5.0); LYMPH % 8.5 % (24.0-44.0); MONO # 0.2 10^3/uL (0.0-0.8); MONO % 5.4 % (2.0-8.0); NEUTROPHILS # 3.6 10^3/uL (1.5-8.5); NEUTROPHILS % 84.5 % (36.0-66.0); PLATELET COUNT, AUTOMATED 19 10^3/uL (150-450); WHITE BLOOD COUNT 4.3 10^3/uL (4.0-10.0)
[2023-04-17 06:03] LABS: MEAN CORPUSCULAR HGB CONC 36.8 g/dl (32.0-36.5)
[2023-04-17 06:19] LABS: ALBUMIN 2.9 G/DL (3.2-5.2); ALKALINE PHOSPHATASE 65 U/L (46-116); ALT/SGPT 77 U/L (7.0-40); AST/SGOT 23 U/L (<34); BILIRUBIN,TOTAL 2.3 MG/DL (0.3-1.2); BLOOD UREA NITROGEN 32 MG/DL (9-23); CALCIUM LEVEL 8.9 MG/DL (8.3-10.6); CARBON DIOXIDE LEVEL 24 MMOL/L (20-31); CHLORIDE LEVEL 100 MMOL/L (98-107); CREATININE FOR GFR 0.41 MG/DL (0.55-1.30); GLOMERULAR FILTRATION RATE > 60.0 (>45); GLUCOSE, FASTING 229 MG/DL (74-106); POTASSIUM SERUM 3.9 MMOL/L (3.5-5.1); SODIUM LEVEL 134 MMOL/L (136-145); TOTAL PROTEIN 4.9 G/DL (5.7-8.2)
[2023-04-17] MEDS: INSULIN LISPRO (NovoLOG) PER UNIT SC SCH ×3 (08:18→17:03)
[2023-04-17] MEDS: TOPIRAMATE (TopAMAX) 25 MG TAB PO SCH (08:21)
[2023-04-17] MEDS: PROPRANOLOL 10 MG TAB PO SCH ×3 (08:21→20:40)
[2023-04-17] MEDS: SPIRONOLACTONE 25 MG TAB PO SCH (08:21)
[2023-04-17] MEDS: BACTRIM 80MG/400MG TAB PO SCH (08:21)
[2023-04-17] MEDS: dexAMETHasone 4 MG TAB PO SCH ×2 (08:22→20:40)
[2023-04-17] MEDS: levETIRAcetam 250MG TABLET (KEPPRA) PO SCH ×2 (08:22→20:39)
[2023-04-17] MEDS: PANTOPRAZOLE 40MG TAB (PROTONIX) PO SCH (08:22)
[2023-04-17] MEDS: METOPROLOL SUCC (TopROL XL) 50MG **XL** TAB PO SCH ×2 (08:22→20:40)
[2023-04-17] MEDS: VITAMIN D 1,000 INTERNATIONAL UNITS TABLET PO SCH (08:22)
[2023-04-17] MEDS: ASCORBIC ACID 500 MG TAB PO SCH (08:22)
[2023-04-17] MEDS: ONDANSETRON 4MG ORAL DISINTEGRATING TAB PO SCH (08:22)
[2023-04-17] MEDS ORDERED: LEVEMIR (INSULIN DETEMIR) 1 UNITS/0.01ML SC SCH (09:00)
[2023-04-17 14:00] VITALS: BP 129/83; TEMP 97.5; O2SAT 93
[2023-04-17 20:00] VITALS: BP 128/85; TEMP 97.5; O2SAT 95
[2023-04-17] MEDS: SERTRALINE HCL 50 MG TAB PO SCH (20:40)
[2023-04-17] MEDS: ACETAMINOPHEN 500 MG TAB PO PRN (20:56)
[2023-04-18 06:00] VITALS: BP 124/84; TEMP 97.2; O2SAT 96
[2023-04-18 06:09] LABS: BASO % 0.2 % (0.0-1.0); EOS % 0.2 % (0.0-3.0); HEMATOCRIT 35.3 % (36.0-47.0); HEMOGLOBIN 13.1 g/dl (12.0-15.5); LYMPH # 0.4 10^3/uL (1.5-5.0); LYMPH % 10.6 % (24.0-44.0); MEAN CORPUSCULAR HGB CONC 37.1 g/dl (32.0-36.5); MONO # 0.3 10^3/uL (0.0-0.8); MONO % 7.4 % (2.0-8.0); NEUTROPHILS # 3.3 10^3/uL (1.5-8.5); NEUTROPHILS % 80.1 % (36.0-66.0); RED BLOOD COUNT 3.64 10^6/uL (4.00-5.40); WHITE BLOOD COUNT 4.1 10^3/uL (4.0-10.0)
[2023-04-18 06:15] LABS: PLATELET COUNT, AUTOMATED 17 10^3/uL (150-450)
[2023-04-18 06:33] LABS: ALBUMIN 3.1 G/DL (3.2-5.2); ALKALINE PHOSPHATASE 68 U/L (46-116); ALT/SGPT 69 U/L (7.0-40); AST/SGOT 16 U/L (<34); BILIRUBIN,TOTAL 2.5 MG/DL (0.3-1.2); BLOOD UREA NITROGEN 36 MG/DL (9-23); CALCIUM LEVEL 9.4 MG/DL (8.3-10.6); CARBON DIOXIDE LEVEL 26 MMOL/L (20-31); CHLORIDE LEVEL 100 MMOL/L (98-107); CREATININE FOR GFR 0.51 MG/DL (0.55-1.30); GLOMERULAR FILTRATION RATE > 60.0 (>45); GLUCOSE, FASTING 223 MG/DL (74-106); POTASSIUM SERUM 4.2 MMOL/L (3.5-5.1); SODIUM LEVEL 135 MMOL/L (136-145); TOTAL PROTEIN 5.1 G/DL (5.7-8.2)
[2023-04-18] MEDS: INSULIN LISPRO (NovoLOG) PER UNIT SC SCH ×3 (08:17→16:48)
[2023-04-18] MEDS: LEVEMIR (INSULIN DETEMIR) 1 UNITS/0.01ML SC SCH ×2 (08:17→20:59)
[2023-04-18] MEDS: METOPROLOL SUCC (TopROL XL) 50MG **XL** TAB PO SCH ×2 (08:22→21:00)
[2023-04-18] MEDS: TOPIRAMATE (TopAMAX) 25 MG TAB PO SCH (08:24)
[2023-04-18] MEDS: PANTOPRAZOLE 40MG TAB (PROTONIX) PO SCH (08:24)
[2023-04-18] MEDS: PROPRANOLOL 10 MG TAB PO SCH ×3 (08:24→21:00)
[2023-04-18] MEDS: levETIRAcetam 250MG TABLET (KEPPRA) PO SCH (08:25)
[2023-04-18] MEDS: BACTRIM 80MG/400MG TAB PO SCH (08:25)
[2023-04-18] MEDS: ASCORBIC ACID 500 MG TAB PO SCH (08:25)
[2023-04-18] MEDS: dexAMETHasone 4 MG TAB PO SCH ×2 (08:25→21:00)
[2023-04-18] MEDS: SPIRONOLACTONE 25 MG TAB PO SCH (08:25)
[2023-04-18] MEDS: VITAMIN D 1,000 INTERNATIONAL UNITS TABLET PO SCH (08:25)
[2023-04-18] MEDS: ONDANSETRON 4MG ORAL DISINTEGRATING TAB PO SCH (08:25)
[2023-04-18 10:51] VITALS: BP 104/70; TEMP 98.1; O2SAT 98
[2023-04-18] MEDS ORDERED: LACOSAMIDE 50 MG TAB (VIMPAT) PO ONE (12:00)
[2023-04-18] MEDS: ACETAMINOPHEN 500 MG TAB PO PRN (13:02)
[2023-04-18 14:00] VITALS: BP 118/79; TEMP 97.5; O2SAT 95
[2023-04-18 15:04] LABS: HEMATOCRIT 32.3 % (36.0-47.0); MEAN CORPUSCULAR HEMOGLOBIN 35.6 pg (27.0-33.0); MEAN CORPUSCULAR HGB CONC 37.2 g/dl (32.0-36.5); MEAN CORPUSCULAR VOLUME 95.8 fl (80.0-96.0); RED BLOOD COUNT 3.37 10^6/uL (4.00-5.40); WHITE BLOOD COUNT 3.6 10^3/uL (4.0-10.0)
[2023-04-18 15:09] LABS: PLATELET COUNT, AUTOMATED 54 10^3/uL (150-450)
[2023-04-18 20:00] VITALS: BP 114/77; TEMP 97.7; O2SAT 95
[2023-04-18] MEDS: LACOSAMIDE 50 MG TAB (VIMPAT) PO SCH (20:58)
[2023-04-18] MEDS: SERTRALINE HCL 50 MG TAB PO SCH (20:59)
[2023-04-19 06:00] VITALS: BP 136/96; TEMP 98.4; O2SAT 94
[2023-04-19 06:25] LABS: BASO % 0.3 % (0.0-1.0); EOS % 0.3 % (0.0-3.0); HEMOGLOBIN 11.9 g/dl (12.0-15.5); LYMPH # 0.3 10^3/uL (1.5-5.0); LYMPH % 9.9 % (24.0-44.0); MEAN CORPUSCULAR HEMOGLOBIN 35.7 pg (27.0-33.0); MEAN CORPUSCULAR HGB CONC 37.2 g/dl (32.0-36.5); MEAN CORPUSCULAR VOLUME 96.1 fl (80.0-96.0); MONO # 0.2 10^3/uL (0.0-0.8); MONO % 6.8 % (2.0-8.0); NEUTROPHILS # 2.4 10^3/uL (1.5-8.5); RED BLOOD COUNT 3.33 10^6/uL (4.00-5.40); WHITE BLOOD COUNT 2.9 10^3/uL (4.0-10.0)
[2023-04-19 06:39] LABS: PLATELET COUNT, AUTOMATED 42 10^3/uL (150-450)
[2023-04-19 07:05] LABS: ALBUMIN 2.9 G/DL (3.2-5.2); ALKALINE PHOSPHATASE 65 U/L (46-116); ALT/SGPT 65 U/L (7.0-40); AST/SGOT 23 U/L (<34); BILIRUBIN,TOTAL 2.5 MG/DL (0.3-1.2); BLOOD UREA NITROGEN 31 MG/DL (9-23); CALCIUM LEVEL 8.6 MG/DL (8.3-10.6); CARBON DIOXIDE LEVEL 27 MMOL/L (20-31); CHLORIDE LEVEL 101 MMOL/L (98-107); CREATININE FOR GFR 0.47 MG/DL (0.55-1.30); GLOMERULAR FILTRATION RATE > 60.0 (>45); GLUCOSE, FASTING 204 MG/DL (74-106); SODIUM LEVEL 137 MMOL/L (136-145); TOTAL PROTEIN 4.8 G/DL (5.7-8.2)
[2023-04-19] MEDS: ONDANSETRON 4MG ORAL DISINTEGRATING TAB PO SCH (09:53)
[2023-04-19] MEDS: LEVEMIR (INSULIN DETEMIR) 1 UNITS/0.01ML SC SCH ×2 (09:54→22:09)
[2023-04-19] MEDS: INSULIN LISPRO (NovoLOG) PER UNIT SC SCH ×3 (09:54→17:28)
[2023-04-19] MEDS: PROPRANOLOL 10 MG TAB PO SCH ×3 (10:02→22:08)
[2023-04-19] MEDS: PANTOPRAZOLE 40MG TAB (PROTONIX) PO SCH (11:30)
[2023-04-19] MEDS: VITAMIN D 1,000 INTERNATIONAL UNITS TABLET PO SCH (11:30)
[2023-04-19] MEDS: SPIRONOLACTONE 25 MG TAB PO SCH (11:31)
[2023-04-19] MEDS: dexAMETHasone 4 MG TAB PO SCH ×2 (11:31→22:09)
[2023-04-19] MEDS: LACOSAMIDE 50 MG TAB (VIMPAT) PO SCH ×2 (11:31→22:07)
[2023-04-19] MEDS: BACTRIM 80MG/400MG TAB PO SCH (11:31)
[2023-04-19] MEDS: ASCORBIC ACID 500 MG TAB PO SCH (11:31)
[2023-04-19] MEDS: TOPIRAMATE (TopAMAX) 25 MG TAB PO SCH (11:32)
[2023-04-19] MEDS: METOPROLOL SUCC (TopROL XL) 50MG **XL** TAB PO SCH ×2 (11:44→22:08)
[2023-04-19 14:42] VITALS: BP 112/76; TEMP 97.5; O2SAT 94
[2023-04-19] MEDS: MIRALAX *UNIT DOSE* 17GM PACKET PO PRN (17:32)
[2023-04-19] MEDS: ACETAMINOPHEN 500 MG TAB PO PRN (17:37)
[2023-04-19 20:00] VITALS: BP 135/94; TEMP 97.7; O2SAT 94
[2023-04-19] MEDS: SERTRALINE HCL 50 MG TAB PO SCH (22:08)
[2023-04-20 06:00] VITALS: BP 125/91; TEMP 98.1; O2SAT 95
[2023-04-20 06:23] LABS: BASO % 0.4 % (0.0-1.0); EOS % 0.4 % (0.0-3.0); HEMATOCRIT 31.4 % (36.0-47.0); HEMOGLOBIN 11.6 g/dl (12.0-15.5); LYMPH # 0.3 10^3/uL (1.5-5.0); LYMPH % 10.9 % (24.0-44.0); MEAN CORPUSCULAR HEMOGLOBIN 35.9 pg (27.0-33.0); MEAN CORPUSCULAR VOLUME 97.2 fl (80.0-96.0); MONO # 0.2 10^3/uL (0.0-0.8); MONO % 6.9 % (2.0-8.0); NEUTROPHILS % 79.8 % (36.0-66.0); RED BLOOD COUNT 3.23 10^6/uL (4.00-5.40); WHITE BLOOD COUNT 2.5 10^3/uL (4.0-10.0)
[2023-04-20 06:31] LABS: PLATELET COUNT, AUTOMATED 32 10^3/uL (150-450)
[2023-04-20 06:32] LABS: MEAN CORPUSCULAR HGB CONC 36.9 g/dl (32.0-36.5)
[2023-04-20 06:54] LABS: ALKALINE PHOSPHATASE 64 U/L (46-116); ALT/SGPT 60 U/L (7.0-40); AST/SGOT 18 U/L (<34); BILIRUBIN,TOTAL 2.5 MG/DL (0.3-1.2); BLOOD UREA NITROGEN 34 MG/DL (9-23); CALCIUM LEVEL 8.7 MG/DL (8.3-10.6); CARBON DIOXIDE LEVEL 27 MMOL/L (20-31); CHLORIDE LEVEL 102 MMOL/L (98-107); CREATININE FOR GFR 0.45 MG/DL (0.55-1.30); GLOMERULAR FILTRATION RATE > 60.0 (>45); GLUCOSE, FASTING 160 MG/DL (74-106); SODIUM LEVEL 136 MMOL/L (136-145); TOTAL PROTEIN 4.9 G/DL (5.7-8.2)
[2023-04-20] MEDS: ONDANSETRON 4MG ORAL DISINTEGRATING TAB PO SCH (08:40)
[2023-04-20] MEDS: ACETAMINOPHEN 500 MG TAB PO PRN (08:40)
[2023-04-20] MEDS: LEVEMIR (INSULIN DETEMIR) 1 UNITS/0.01ML SC SCH ×2 (08:41→21:16)
[2023-04-20] MEDS: MIRALAX *UNIT DOSE* 17GM PACKET PO PRN ×2 (08:41→21:17)
[2023-04-20] MEDS: INSULIN LISPRO (NovoLOG) PER UNIT SC SCH ×3 (08:42→17:01)
[2023-04-20] MEDS: PROPRANOLOL 10 MG TAB PO SCH ×3 (08:46→21:15)
[2023-04-20] MEDS: dexAMETHasone 4 MG TAB PO SCH ×2 (11:25→21:15)
[2023-04-20] MEDS: PANTOPRAZOLE 40MG TAB (PROTONIX) PO SCH (11:25)
[2023-04-20] MEDS: BACTRIM 80MG/400MG TAB PO SCH (11:25)
[2023-04-20] MEDS: TOPIRAMATE (TopAMAX) 25 MG TAB PO SCH (11:25)
[2023-04-20] MEDS: VITAMIN D 1,000 INTERNATIONAL UNITS TABLET PO SCH (11:25)
[2023-04-20] MEDS: SPIRONOLACTONE 25 MG TAB PO SCH (11:25)
[2023-04-20] MEDS: ASCORBIC ACID 500 MG TAB PO SCH (11:25)
[2023-04-20] MEDS: LACOSAMIDE 50 MG TAB (VIMPAT) PO SCH ×2 (11:26→21:15)
[2023-04-20] MEDS: METOPROLOL SUCC (TopROL XL) 50MG **XL** TAB PO SCH ×2 (11:28→21:15)
[2023-04-20 14:00] VITALS: BP 124/83; TEMP 97.9; O2SAT 98
[2023-04-20] MEDS: SERTRALINE HCL 50 MG TAB PO SCH (21:15)
[2023-04-20 22:00] VITALS: TEMP 98.1; O2SAT 96
[2023-04-20 23:16] VITALS: BP 128/82; TEMP 97.5; O2SAT 94
[2023-04-21] VITALS (7 sets, daily range): BP systolic 110–128; BP diastolic 68–88; TEMP 97.3–98.1; O2SAT 93–94
[2023-04-21 02:49] LABS: HEMATOCRIT 29.3 % (36.0-47.0); HEMOGLOBIN 10.7 g/dl (12.0-15.5); MEAN CORPUSCULAR HEMOGLOBIN 35.5 pg (27.0-33.0); MEAN CORPUSCULAR HGB CONC 36.5 g/dl (32.0-36.5); MEAN CORPUSCULAR VOLUME 97.3 fl (80.0-96.0); RED BLOOD COUNT 3.01 10^6/uL (4.00-5.40)
[2023-04-21 02:51] LABS: PLATELET COUNT, AUTOMATED 32 10^3/uL (150-450)
[2023-04-21 06:12] LABS: BASO % 0.6 % (0.0-1.0); EOS % 0.6 % (0.0-3.0); HEMATOCRIT 28.4 % (36.0-47.0); HEMOGLOBIN 10.4 g/dl (12.0-15.5); LYMPH # 0.3 10^3/uL (1.5-5.0); LYMPH % 14.5 % (24.0-44.0); MEAN CORPUSCULAR HGB CONC 36.6 g/dl (32.0-36.5); MEAN CORPUSCULAR VOLUME 98.3 fl (80.0-96.0); MONO # 0.2 10^3/uL (0.0-0.8); MONO % 9.8 % (2.0-8.0); NEUTROPHILS # 1.2 10^3/uL (1.5-8.5); NEUTROPHILS % 71.6 % (36.0-66.0); RED BLOOD COUNT 2.89 10^6/uL (4.00-5.40); WHITE BLOOD COUNT 1.7 10^3/uL (4.0-10.0)
[2023-04-21 06:17] LABS: PLATELET COUNT, AUTOMATED 56 10^3/uL (150-450)
[2023-04-21 06:37] LABS: ALBUMIN 2.8 G/DL (3.2-5.2); ALKALINE PHOSPHATASE 59 U/L (46-116); ALT/SGPT 52 U/L (7.0-40); AST/SGOT 17 U/L (<34); BILIRUBIN,TOTAL 2.2 MG/DL (0.3-1.2); BLOOD UREA NITROGEN 32 MG/DL (9-23); CALCIUM LEVEL 8.4 MG/DL (8.3-10.6); CARBON DIOXIDE LEVEL 29 MMOL/L (20-31); CHLORIDE LEVEL 103 MMOL/L (98-107); CREATININE FOR GFR 0.44 MG/DL (0.55-1.30); GLOMERULAR FILTRATION RATE > 60.0 (>45); GLUCOSE, FASTING 163 MG/DL (74-106); POTASSIUM SERUM 3.9 MMOL/L (3.5-5.1); SODIUM LEVEL 138 MMOL/L (136-145); TOTAL PROTEIN 4.7 G/DL (5.7-8.2)
[2023-04-21] MEDS: METOPROLOL SUCC (TopROL XL) 50MG **XL** TAB PO SCH ×2 (09:00→21:48)
[2023-04-21] MEDS: PROPRANOLOL 10 MG TAB PO SCH ×3 (09:00→21:48)
[2023-04-21] MEDS: ONDANSETRON 4MG ORAL DISINTEGRATING TAB PO SCH (09:04)
[2023-04-21] MEDS: TOPIRAMATE (TopAMAX) 25 MG TAB PO SCH (09:05)
[2023-04-21] MEDS: PANTOPRAZOLE 40MG TAB (PROTONIX) PO SCH (09:05)
[2023-04-21] MEDS: SPIRONOLACTONE 25 MG TAB PO SCH (09:05)
[2023-04-21] MEDS: BACTRIM 80MG/400MG TAB PO SCH (09:06)
[2023-04-21] MEDS: ASCORBIC ACID 500 MG TAB PO SCH (09:06)
[2023-04-21] MEDS: dexAMETHasone 4 MG TAB PO SCH (09:06)
[2023-04-21] MEDS: ACETAMINOPHEN 500 MG TAB PO PRN ×2 (09:06→17:47)
[2023-04-21] MEDS: LACOSAMIDE 50 MG TAB (VIMPAT) PO SCH ×2 (09:07→21:47)
[2023-04-21] MEDS: VITAMIN D 1,000 INTERNATIONAL UNITS TABLET PO SCH (09:07)
[2023-04-21] MEDS: INSULIN LISPRO (NovoLOG) PER UNIT SC SCH ×3 (09:08→16:40)
[2023-04-21] MEDS: FILGRASTIM 300MCG 0.5ML SYRINGE **SC ADMINISTRATION ONLY SC SCH (09:09)
[2023-04-21] MEDS: LEVEMIR (INSULIN DETEMIR) 1 UNITS/0.01ML SC SCH ×2 (09:09→21:49)
[2023-04-21] MEDS: NS 1,000 ML IV SCH ×2 (09:10→17:46)
[2023-04-21] MEDS ORDERED: ROMIPLOSTIM SC ONE (10:00)
[2023-04-21] MEDS: D5W/0.9% SODIUM CHLORIDE 1,000 ML IV SCH (18:35)
[2023-04-21] MEDS: SERTRALINE HCL 50 MG TAB PO SCH (21:48)
[2023-04-22 06:00] VITALS: BP 109/70; TEMP 98.1; O2SAT 96
[2023-04-22] MEDS: D5W/0.9% SODIUM CHLORIDE 1,000 ML IV SCH ×2 (06:32→19:34)
[2023-04-22 06:39] LABS: HEMATOCRIT 26.1 % (36.0-47.0); HEMOGLOBIN 9.5 g/dl (12.0-15.5); MEAN CORPUSCULAR HGB CONC 36.4 g/dl (32.0-36.5); MEAN CORPUSCULAR VOLUME 98.9 fl (80.0-96.0); RED BLOOD COUNT 2.64 10^6/uL (4.00-5.40); WHITE BLOOD COUNT 2.1 10^3/uL (4.0-10.0)
[2023-04-22 06:42] LABS: PLATELET COUNT, AUTOMATED 51 10^3/uL (150-450)
[2023-04-22 07:05] LABS: ALBUMIN 2.5 G/DL (3.2-5.2); ALKALINE PHOSPHATASE 53 U/L (46-116); ALT/SGPT 45 U/L (7.0-40); AST/SGOT 17 U/L (<34); BILIRUBIN,TOTAL 2.2 MG/DL (0.3-1.2); BLOOD UREA NITROGEN 24 MG/DL (9-23); CALCIUM LEVEL 8.6 MG/DL (8.3-10.6); CARBON DIOXIDE LEVEL 26 MMOL/L (20-31); CHLORIDE LEVEL 108 MMOL/L (98-107); CREATININE FOR GFR 0.38 MG/DL (0.55-1.30); GLOMERULAR FILTRATION RATE > 60.0 (>45); GLUCOSE, FASTING 167 MG/DL (74-106); POTASSIUM SERUM 3.5 MMOL/L (3.5-5.1); SODIUM LEVEL 140 MMOL/L (136-145); TOTAL PROTEIN 4.3 G/DL (5.7-8.2)
[2023-04-22 07:25] LABS: ATYPICAL LYMPH 4 % (0-5); EOSINOPHILS 2 % (0-3); LYMPHOCYTES 10 % (16-44); METAMYELOCYTES 1 % (0-0); MONOCYTES 2 % (0-5); NEUTROPHILS 66 % (28-66); NUCLEATED RED BLOOD CELL 2 % (0-0)
[2023-04-22 07:26] LABS: ANISOCYTOSIS 1+; POLYCHROMASIA 1+
[2023-04-22 07:27] LABS: MICROCYTOSIS 1+; PLATELET ESTIMATE DECREASED (NORMAL)
[2023-04-22] MEDS: PROPRANOLOL 10 MG TAB PO SCH ×3 (09:00→20:30)
[2023-04-22] MEDS: METOPROLOL SUCC (TopROL XL) 50MG **XL** TAB PO SCH ×2 (09:00→20:30)
[2023-04-22] MEDS: LEVEMIR (INSULIN DETEMIR) 1 UNITS/0.01ML SC SCH ×2 (09:19→22:13)
[2023-04-22] MEDS: INSULIN LISPRO (NovoLOG) PER UNIT SC SCH ×3 (09:20→16:54)
[2023-04-22] MEDS: ASCORBIC ACID 500 MG TAB PO SCH (09:21)
[2023-04-22] MEDS: LACOSAMIDE 50 MG TAB (VIMPAT) PO SCH ×2 (09:21→20:50)
[2023-04-22] MEDS: dexAMETHasone 4 MG TAB PO SCH (09:21)
[2023-04-22] MEDS: TOPIRAMATE (TopAMAX) 25 MG TAB PO SCH (09:21)
[2023-04-22] MEDS: BACTRIM 80MG/400MG TAB PO SCH (09:21)
[2023-04-22] MEDS: PANTOPRAZOLE 40MG TAB (PROTONIX) PO SCH (09:22)
[2023-04-22] MEDS: SPIRONOLACTONE 25 MG TAB PO SCH (09:22)
[2023-04-22] MEDS: VITAMIN D 1,000 INTERNATIONAL UNITS TABLET PO SCH (09:22)
[2023-04-22] MEDS: ACETAMINOPHEN 500 MG TAB PO PRN (09:22)
[2023-04-22] MEDS: ONDANSETRON 4MG ORAL DISINTEGRATING TAB PO SCH (09:22)
[2023-04-22] MEDS: FILGRASTIM 300MCG 0.5ML SYRINGE **SC ADMINISTRATION ONLY SC SCH (10:36)
[2023-04-22] MEDS: MIRALAX *UNIT DOSE* 17GM PACKET PO PRN (12:28)
[2023-04-22] MEDS: PERCOCET 5MG/325MG TAB PO PRN ×2 (12:28→20:50)
[2023-04-22] MEDS ORDERED: MAGIC MOUTHWASH SUSPENSION BTL SS PRN (19:45)
[2023-04-22 19:46] VITALS: BP 116/86; TEMP 98.1; O2SAT 95
[2023-04-22] MEDS: SERTRALINE HCL 50 MG TAB PO SCH (20:50)
[2023-04-22] MEDS: cefTRIAXone SOD 1 GM in D5W MINI-BAG PLUS 50 ML IV SCH (20:51)
[2023-04-23] VITALS (10 sets, daily range): BP systolic 102–132; BP diastolic 52–88; TEMP 97.7–98.2; O2SAT 95–97
[2023-04-23 05:55] LABS: HEMATOCRIT 26.9 % (36.0-47.0); HEMOGLOBIN 9.4 g/dl (12.0-15.5); MEAN CORPUSCULAR HEMOGLOBIN 34.8 pg (27.0-33.0); MEAN CORPUSCULAR HGB CONC 34.9 g/dl (32.0-36.5); MEAN CORPUSCULAR VOLUME 99.6 fl (80.0-96.0); WHITE BLOOD COUNT 1.8 10^3/uL (4.0-10.0)
[2023-04-23 06:06] LABS: PLATELET COUNT, AUTOMATED 38 10^3/uL (150-450)
[2023-04-23 06:18] LABS: ALBUMIN 2.6 G/DL (3.2-5.2); ALKALINE PHOSPHATASE 57 U/L (46-116); ALT/SGPT 47 U/L (7.0-40); AST/SGOT 14 U/L (<34); BLOOD UREA NITROGEN 22 MG/DL (9-23); CALCIUM LEVEL 8.6 MG/DL (8.3-10.6); CARBON DIOXIDE LEVEL 27 MMOL/L (20-31); CHLORIDE LEVEL 109 MMOL/L (98-107); GLOMERULAR FILTRATION RATE > 60.0 (>45); GLUCOSE, FASTING 135 MG/DL (74-106); POTASSIUM SERUM 3.6 MMOL/L (3.5-5.1); SODIUM LEVEL 141 MMOL/L (136-145); TOTAL PROTEIN 4.4 G/DL (5.7-8.2)
[2023-04-23 07:56] LABS: ATYPICAL LYMPH 5 % (0-5); BASOPHILS 1 % (0-1); EOSINOPHILS 1 % (0-3); LYMPHOCYTES 14 % (16-44); METAMYELOCYTES 3 % (0-0); MONOCYTES 4 % (0-5); NEUTROPHILS 60 % (28-66); NUCLEATED RED BLOOD CELL 2 % (0-0); PLATELET ESTIMATE DECREASED (NORMAL)
[2023-04-23 07:57] LABS: ANISOCYTOSIS 2+; MICROCYTOSIS 2+
[2023-04-23] MEDS: PANTOPRAZOLE 40MG TAB (PROTONIX) PO SCH (08:45)
[2023-04-23] MEDS: VITAMIN D 1,000 INTERNATIONAL UNITS TABLET PO SCH (08:45)
[2023-04-23] MEDS: dexAMETHasone 4 MG TAB PO SCH (08:45)
[2023-04-23] MEDS: ONDANSETRON 4MG ORAL DISINTEGRATING TAB PO SCH (08:46)
[2023-04-23] MEDS: SPIRONOLACTONE 25 MG TAB PO SCH (08:46)
[2023-04-23] MEDS: LACOSAMIDE 50 MG TAB (VIMPAT) PO SCH ×2 (08:46→21:28)
[2023-04-23] MEDS: BACTRIM 80MG/400MG TAB PO SCH (08:46)
[2023-04-23] MEDS: TOPIRAMATE (TopAMAX) 25 MG TAB PO SCH (08:46)
[2023-04-23] MEDS: ASCORBIC ACID 500 MG TAB PO SCH (08:46)
[2023-04-23] MEDS: LEVEMIR (INSULIN DETEMIR) 1 UNITS/0.01ML SC SCH ×2 (08:49→21:30)
[2023-04-23] MEDS: INSULIN LISPRO (NovoLOG) PER UNIT SC SCH ×3 (08:49→18:23)
[2023-04-23] MEDS: D5W/0.45% SODIUM CHLORIDE 1,000 ML IV SCH ×2 (08:51→18:22)
[2023-04-23] MEDS: ACETAMINOPHEN TAB 650MG DOSE (2X325MG) PO PRN (08:52)
[2023-04-23] MEDS: METOPROLOL SUCC (TopROL XL) 50MG **XL** TAB PO SCH ×2 (08:53→21:29)
[2023-04-23] MEDS: PROPRANOLOL 10 MG TAB PO SCH ×3 (08:54→21:29)
[2023-04-23] MEDS: FILGRASTIM 300MCG 0.5ML SYRINGE **SC ADMINISTRATION ONLY SC SCH (10:02)
[2023-04-23 10:10] LABS: TOXIC GRANULATION 1+
[2023-04-23] MEDS: PERCOCET 5MG/325MG TAB PO PRN ×2 (15:11→21:32)
[2023-04-23 17:24] LABS: HEMATOCRIT 23.9 % (36.0-47.0); HEMOGLOBIN 8.6 g/dl (12.0-15.5); MEAN CORPUSCULAR HEMOGLOBIN 35.7 pg (27.0-33.0); MEAN CORPUSCULAR VOLUME 99.2 fl (80.0-96.0); RED BLOOD COUNT 2.41 10^6/uL (4.00-5.40); WHITE BLOOD COUNT 1.5 10^3/uL (4.0-10.0)
[2023-04-23 17:30] LABS: PLATELET COUNT, AUTOMATED 46 10^3/uL (150-450)
[2023-04-23] MEDS: SERTRALINE HCL 50 MG TAB PO SCH (21:29)
[2023-04-23] MEDS: cefTRIAXone SOD 1 GM in D5W MINI-BAG PLUS 50 ML IV SCH (21:30)
[2023-04-24] VITALS (9 sets, daily range): BP systolic 80–142; BP diastolic 52–90; TEMP 97.5–98.2; O2SAT 94–98
[2023-04-24 06:14] LABS: HEMOGLOBIN 8.2 g/dl (12.0-15.5); MEAN CORPUSCULAR HEMOGLOBIN 35.7 pg (27.0-33.0); MEAN CORPUSCULAR HGB CONC 35.7 g/dl (32.0-36.5); WHITE BLOOD COUNT 1.5 10^3/uL (4.0-10.0)
[2023-04-24 06:17] LABS: PLATELET COUNT, AUTOMATED 45 10^3/uL (150-450)
[2023-04-24 07:07] LABS: ALBUMIN 2.4 G/DL (3.2-5.2); ALKALINE PHOSPHATASE 55 U/L (46-116); ALT/SGPT 41 U/L (7.0-40); AST/SGOT 14 U/L (<34); BILIRUBIN,TOTAL 1.7 MG/DL (0.3-1.2); BLOOD UREA NITROGEN 19 MG/DL (9-23); CARBON DIOXIDE LEVEL 27 MMOL/L (20-31); CHLORIDE LEVEL 105 MMOL/L (98-107); CREATININE FOR GFR 0.36 MG/DL (0.55-1.30); GLOMERULAR FILTRATION RATE > 60.0 (>45); GLUCOSE, FASTING 116 MG/DL (74-106); POTASSIUM SERUM 3.4 MMOL/L (3.5-5.1); SODIUM LEVEL 138 MMOL/L (136-145)
[2023-04-24] MEDS: INSULIN LISPRO (NovoLOG) PER UNIT SC SCH ×3 (07:30→17:09)
[2023-04-24] MEDS ORDERED: POTASSIUM CHLORIDE 10MEQ SR TABLET PO ONE (07:45)
[2023-04-24 08:13] LABS: ATYPICAL LYMPH 8 % (0-5); EOSINOPHILS 4 % (0-3); LYMPHOCYTES 21 % (16-44); METAMYELOCYTES 1 % (0-0); MONOCYTES 9 % (0-5); NEUTROPHILS 53 % (28-66); NUCLEATED RED BLOOD CELL 2 % (0-0); PLATELET ESTIMATE DECREASED (NORMAL)
[2023-04-24 08:14] LABS: ANISOCYTOSIS 1+; MICROCYTOSIS 1+
[2023-04-24 08:15] LABS: HYPOCHROMASIA 1+
[2023-04-24] MEDS: D5W/0.45% SODIUM CHLORIDE 1,000 ML IV SCH ×3 (08:22→23:51)
[2023-04-24] MEDS: ASCORBIC ACID 500 MG TAB PO SCH (08:23)
[2023-04-24] MEDS: VITAMIN D 1,000 INTERNATIONAL UNITS TABLET PO SCH (08:23)
[2023-04-24] MEDS: PANTOPRAZOLE 40MG TAB (PROTONIX) PO SCH (08:23)
[2023-04-24] MEDS: LACOSAMIDE 50 MG TAB (VIMPAT) PO SCH ×2 (08:23→21:00)
[2023-04-24] MEDS: dexAMETHasone 4 MG TAB PO SCH (08:23)
[2023-04-24] MEDS: BACTRIM 80MG/400MG TAB PO SCH (08:23)
[2023-04-24] MEDS: TOPIRAMATE (TopAMAX) 25 MG TAB PO SCH (08:25)
[2023-04-24] MEDS: SPIRONOLACTONE 25 MG TAB PO SCH (08:25)
[2023-04-24] MEDS: PROPRANOLOL 10 MG TAB PO SCH ×3 (08:25→21:00)
[2023-04-24] MEDS: METOPROLOL SUCC (TopROL XL) 50MG **XL** TAB PO SCH ×2 (08:25→21:00)
[2023-04-24] MEDS: ONDANSETRON 4MG ORAL DISINTEGRATING TAB PO SCH (08:26)
[2023-04-24] MEDS: LEVEMIR (INSULIN DETEMIR) 1 UNITS/0.01ML SC SCH ×2 (11:23→21:02)
[2023-04-24] MEDS: FILGRASTIM 300MCG 0.5ML SYRINGE **SC ADMINISTRATION ONLY SC SCH (11:24)
[2023-04-24] MEDS: ACETAMINOPHEN TAB 650MG DOSE (2X325MG) PO PRN ×2 (12:17→21:01)
[2023-04-24] MEDS: PERCOCET 5MG/325MG TAB PO PRN (17:08)
[2023-04-24] MEDS: cefTRIAXone SOD 1 GM in D5W MINI-BAG PLUS 50 ML IV SCH (20:59)
[2023-04-24] MEDS: SERTRALINE HCL 50 MG TAB PO SCH (21:00)
[2023-04-25] VITALS: BP 112/72
[2023-04-25 05:50] VITALS: TEMP 98.1; O2SAT 95
[2023-04-25 06:20] VITALS: BP 102/68
[2023-04-25 06:30] LABS: HEMATOCRIT 21.4 % (36.0-47.0); HEMOGLOBIN 7.8 g/dl (12.0-15.5); MEAN CORPUSCULAR HEMOGLOBIN 35.8 pg (27.0-33.0); MEAN CORPUSCULAR HGB CONC 36.4 g/dl (32.0-36.5); MEAN CORPUSCULAR VOLUME 98.2 fl (80.0-96.0); RED BLOOD COUNT 2.18 10^6/uL (4.00-5.40); WHITE BLOOD COUNT 1.5 10^3/uL (4.0-10.0)
[2023-04-25 06:42] LABS: PLATELET COUNT, AUTOMATED 54 10^3/uL (150-450)
[2023-04-25 06:50] LABS: ALBUMIN 2.4 G/DL (3.2-5.2); ALKALINE PHOSPHATASE 62 U/L (46-116); ALT/SGPT 51 U/L (7.0-40); AST/SGOT 22 U/L (<34); BILIRUBIN,TOTAL 1.8 MG/DL (0.3-1.2); BLOOD UREA NITROGEN 13 MG/DL (9-23); CALCIUM LEVEL 7.7 MG/DL (8.3-10.6); CARBON DIOXIDE LEVEL 27 MMOL/L (20-31); CHLORIDE LEVEL 102 MMOL/L (98-107); CREATININE FOR GFR 0.34 MG/DL (0.55-1.30); GLOMERULAR FILTRATION RATE > 60.0 (>45); GLUCOSE, FASTING 121 MG/DL (74-106); MAGNESIUM LEVEL 1.6 MG/DL (1.8-2.4); POTASSIUM SERUM 3.3 MMOL/L (3.5-5.1); SODIUM LEVEL 136 MMOL/L (136-145)
[2023-04-25] MEDS: INSULIN LISPRO (NovoLOG) PER UNIT SC SCH ×3 (07:30→17:51)
[2023-04-25] MEDS ORDERED: MAGNESIUM OXIDE 400MG TAB (MAG-OX) PO ONE (07:35)
[2023-04-25] MEDS ORDERED: POTASSIUM CHLORIDE 10MEQ SR TABLET PO ONE (07:35)
[2023-04-25] MEDS: ONDANSETRON 4MG ORAL DISINTEGRATING TAB PO SCH (08:12)
[2023-04-25] MEDS: METOPROLOL SUCC (TopROL XL) 50MG **XL** TAB PO SCH ×2 (09:00→21:00)
[2023-04-25] MEDS: PROPRANOLOL 10 MG TAB PO SCH ×3 (09:00→21:00)
[2023-04-25 09:31] LABS: ATYPICAL LYMPH 10 % (0-5); BASOPHILS 2 % (0-1); LYMPHOCYTES 6 % (16-44); METAMYELOCYTES 4 % (0-0); MONOCYTES 8 % (0-5); NEUTROPHILS 44 % (28-66)
[2023-04-25] MEDS: dexAMETHasone 4 MG TAB PO SCH (09:32)
[2023-04-25] MEDS: BACTRIM 80MG/400MG TAB PO SCH (09:32)
[2023-04-25 09:33] LABS: HYPOCHROMASIA 1+
[2023-04-25] MEDS: TOPIRAMATE (TopAMAX) 25 MG TAB PO SCH (09:33)
[2023-04-25] MEDS: PANTOPRAZOLE 40MG TAB (PROTONIX) PO SCH (09:33)
[2023-04-25 09:34] LABS: ANISOCYTOSIS 2+; PLATELET ESTIMATE DECREASED (NORMAL)
[2023-04-25] MEDS: ASCORBIC ACID 500 MG TAB PO SCH (09:34)
[2023-04-25] MEDS: D5W/0.45% SODIUM CHLORIDE 1,000 ML IV SCH (09:34)
[2023-04-25] MEDS: LACOSAMIDE 50 MG TAB (VIMPAT) PO SCH ×2 (09:35→21:36)
[2023-04-25] MEDS: SPIRONOLACTONE 25 MG TAB PO SCH (09:35)
[2023-04-25] MEDS: VITAMIN D 1,000 INTERNATIONAL UNITS TABLET PO SCH (09:35)
[2023-04-25] MEDS: LEVEMIR (INSULIN DETEMIR) 1 UNITS/0.01ML SC SCH ×2 (09:36→21:37)
[2023-04-25] MEDS ORDERED: LIDOCAINE 1% MDV 20ML VIAL As Ordered ONE (13:37)
[2023-04-25 14:00] VITALS: BP 113/73; TEMP 97.9; O2SAT 96
[2023-04-25] MEDS: FILGRASTIM 300MCG 0.5ML SYRINGE **SC ADMINISTRATION ONLY SC SCH (15:09)
[2023-04-25] MEDS: SODIUM CHLORIDE 0.9% INJ 10 ML SYR IV SCH (17:51)
[2023-04-25 21:03] VITALS: BP 101/60; TEMP 97.7; O2SAT 97
[2023-04-25] MEDS: SERTRALINE HCL 50 MG TAB PO SCH (21:36)
[2023-04-25] MEDS: ACETAMINOPHEN TAB 650MG DOSE (2X325MG) PO PRN (21:36)
[2023-04-25] MEDS: cefTRIAXone SOD 1 GM in D5W MINI-BAG PLUS 50 ML IV SCH (21:37)
[2023-04-26] VITALS (7 sets, daily range): BP systolic 105–116; BP diastolic 69–80; TEMP 97.3–98.2; O2SAT 94–97
[2023-04-26] MEDS: SODIUM CHLORIDE 0.9% INJ 10 ML SYR IV SCH ×2 (05:30→18:32)
[2023-04-26 06:26] LABS: HEMATOCRIT 22.2 % (36.0-47.0); HEMOGLOBIN 8.1 g/dl (12.0-15.5); MEAN CORPUSCULAR HEMOGLOBIN 35.5 pg (27.0-33.0); MEAN CORPUSCULAR HGB CONC 36.5 g/dl (32.0-36.5); MEAN CORPUSCULAR VOLUME 97.4 fl (80.0-96.0); RED BLOOD COUNT 2.28 10^6/uL (4.00-5.40); WHITE BLOOD COUNT 2.4 10^3/uL (4.0-10.0)
[2023-04-26 06:27] LABS: PLATELET COUNT, AUTOMATED 43 10^3/uL (150-450)
[2023-04-26 07:08] LABS: ALBUMIN 2.5 G/DL (3.2-5.2); ALKALINE PHOSPHATASE 73 U/L (46-116); ALT/SGPT 66 U/L (7.0-40); AST/SGOT 21 U/L (<34); BILIRUBIN,TOTAL 1.9 MG/DL (0.3-1.2); BLOOD UREA NITROGEN 14 MG/DL (9-23); CALCIUM LEVEL 8.3 MG/DL (8.3-10.6); CARBON DIOXIDE LEVEL 25 MMOL/L (20-31); CHLORIDE LEVEL 101 MMOL/L (98-107); CREATININE FOR GFR 0.38 MG/DL (0.55-1.30); GLOMERULAR FILTRATION RATE > 60.0 (>45); GLUCOSE, FASTING 101 MG/DL (74-106); MAGNESIUM LEVEL 1.6 MG/DL (1.8-2.4); POTASSIUM SERUM 3.5 MMOL/L (3.5-5.1); SODIUM LEVEL 132 MMOL/L (136-145); TOTAL PROTEIN 4.3 G/DL (5.7-8.2)
[2023-04-26 07:09] LABS: ATYPICAL LYMPH 3 % (0-5); LYMPHOCYTES 12 % (16-44); METAMYELOCYTES 1 % (0-0); MONOCYTES 7 % (0-5); NEUTROPHILS 61 % (28-66)
[2023-04-26 07:10] LABS: ANISOCYTOSIS 1+; PLATELET ESTIMATE MARKED DECREASE (NORMAL); POLYCHROMASIA 1+
[2023-04-26 07:15] LABS: TOXIC GRANULATION 1+
[2023-04-26] MEDS: INSULIN LISPRO (NovoLOG) PER UNIT SC SCH ×3 (07:30→18:32)
[2023-04-26] MEDS: PANTOPRAZOLE 40MG TAB (PROTONIX) PO SCH (08:43)
[2023-04-26] MEDS: VITAMIN D 1,000 INTERNATIONAL UNITS TABLET PO SCH (08:43)
[2023-04-26] MEDS: TOPIRAMATE (TopAMAX) 25 MG TAB PO SCH (08:43)
[2023-04-26] MEDS: BACTRIM 80MG/400MG TAB PO SCH (08:43)
[2023-04-26] MEDS: ASCORBIC ACID 500 MG TAB PO SCH (08:43)
[2023-04-26] MEDS: ONDANSETRON 4MG ORAL DISINTEGRATING TAB PO SCH (08:43)
[2023-04-26] MEDS: LACOSAMIDE 50 MG TAB (VIMPAT) PO SCH ×2 (08:43→22:08)
[2023-04-26] MEDS: dexAMETHasone 4 MG TAB PO SCH (08:43)
[2023-04-26] MEDS: SPIRONOLACTONE 25 MG TAB PO SCH ×2 (08:44→09:00)
[2023-04-26] MEDS: LEVEMIR (INSULIN DETEMIR) 1 UNITS/0.01ML SC SCH ×2 (08:44→22:09)
[2023-04-26] MEDS: PROPRANOLOL 10 MG TAB PO SCH ×3 (08:48→21:00)
[2023-04-26] MEDS: METOPROLOL SUCC (TopROL XL) 50MG **XL** TAB PO SCH ×2 (08:48→22:08)
[2023-04-26] MEDS: ACETAMINOPHEN TAB 650MG DOSE (2X325MG) PO PRN ×2 (12:27→22:08)
[2023-04-26] MEDS: D5W/0.45% SODIUM CHLORIDE 1,000 ML IV SCH ×2 (15:34→15:59)
[2023-04-26] MEDS: SERTRALINE HCL 50 MG TAB PO SCH (22:08)
[2023-04-26] MEDS: cefTRIAXone SOD 1 GM in D5W MINI-BAG PLUS 50 ML IV SCH (22:09)
[2023-04-27] VITALS (8 sets, daily range): BP systolic 80–112; BP diastolic 53–62; TEMP 97.3–97.9; O2SAT 94–97
[2023-04-27] MEDS: SODIUM CHLORIDE 0.9% INJ 10 ML SYR IV SCH ×2 (05:08→18:28)
[2023-04-27 05:47] LABS: HEMOGLOBIN 7.4 g/dl (12.0-15.5); MEAN CORPUSCULAR HEMOGLOBIN 34.9 pg (27.0-33.0); MEAN CORPUSCULAR HGB CONC 35.2 g/dl (32.0-36.5); MEAN CORPUSCULAR VOLUME 99.1 fl (80.0-96.0); RED BLOOD COUNT 2.12 10^6/uL (4.00-5.40); WHITE BLOOD COUNT 2.5 10^3/uL (4.0-10.0)
[2023-04-27 06:08] LABS: PLATELET COUNT, AUTOMATED 46 10^3/uL (150-450)
[2023-04-27 06:14] LABS: ALBUMIN 2.5 G/DL (3.2-5.2); ALKALINE PHOSPHATASE 79 U/L (46-116); ALT/SGPT 74 U/L (7.0-40); AST/SGOT 25 U/L (<34); BILIRUBIN,TOTAL 1.3 MG/DL (0.3-1.2); BLOOD UREA NITROGEN 15 MG/DL (9-23); CALCIUM LEVEL 8.3 MG/DL (8.3-10.6); CARBON DIOXIDE LEVEL 26 MMOL/L (20-31); CHLORIDE LEVEL 102 MMOL/L (98-107); CREATININE FOR GFR 0.38 MG/DL (0.55-1.30); GLOMERULAR FILTRATION RATE > 60.0 (>45); GLUCOSE, FASTING 118 MG/DL (74-106); MAGNESIUM LEVEL 1.6 MG/DL (1.8-2.4); POTASSIUM SERUM 3.4 MMOL/L (3.5-5.1); SODIUM LEVEL 135 MMOL/L (136-145); TOTAL PROTEIN 4.2 G/DL (5.7-8.2)
[2023-04-27 06:43] LABS: EOSINOPHILS 2 % (0-3); LYMPHOCYTES 14 % (16-44); METAMYELOCYTES 1 % (0-0); MONOCYTES 5 % (0-5); NEUTROPHILS 64 % (28-66)
[2023-04-27 06:44] LABS: ANISOCYTOSIS 1+; PLATELET ESTIMATE MARKED DECREASE (NORMAL); POLYCHROMASIA 1+
[2023-04-27 06:47] LABS: DOHLE BODIES 1+
[2023-04-27] MEDS: INSULIN LISPRO (NovoLOG) PER UNIT SC SCH ×3 (07:30→18:28)
[2023-04-27] MEDS ORDERED: MAGNESIUM OXIDE 400MG TAB (MAG-OX) PO ONE (09:00)
[2023-04-27] MEDS ORDERED: POTASSIUM CHLORIDE 10MEQ SR TABLET PO ONE (09:00)
[2023-04-27] MEDS: LEVEMIR (INSULIN DETEMIR) 1 UNITS/0.01ML SC SCH ×2 (10:19→21:44)
[2023-04-27] MEDS: ONDANSETRON 4MG ORAL DISINTEGRATING TAB PO SCH (10:20)
[2023-04-27] MEDS: LACOSAMIDE 50 MG TAB (VIMPAT) PO SCH ×2 (10:20→20:21)
[2023-04-27] MEDS: BACTRIM 80MG/400MG TAB PO SCH (10:20)
[2023-04-27] MEDS: ACETAMINOPHEN TAB 650MG DOSE (2X325MG) PO PRN ×2 (10:21→15:18)
[2023-04-27] MEDS: TOPIRAMATE (TopAMAX) 25 MG TAB PO SCH (10:22)
[2023-04-27] MEDS: dexAMETHasone 4 MG TAB PO SCH (10:22)
[2023-04-27] MEDS: VITAMIN D 1,000 INTERNATIONAL UNITS TABLET PO SCH ×2 (10:22→10:51)
[2023-04-27] MEDS: ASCORBIC ACID 500 MG TAB PO SCH ×2 (10:22→10:51)
[2023-04-27] MEDS: PANTOPRAZOLE 40MG TAB (PROTONIX) PO SCH ×2 (10:22→10:51)
[2023-04-27] MEDS: D5W/0.45% SODIUM CHLORIDE 1,000 ML IV SCH (10:23)
[2023-04-27] MEDS: PROPRANOLOL 10 MG TAB PO SCH ×3 (10:50→20:10)
[2023-04-27] MEDS: SPIRONOLACTONE 25 MG TAB PO SCH (10:50)
[2023-04-27] MEDS: METOPROLOL SUCC (TopROL XL) 50MG **XL** TAB PO SCH ×2 (10:51→20:11)
[2023-04-27] MEDS ORDERED: MIDODRINE 5 MG TAB PO ONE (20:00)
[2023-04-27] MEDS: SERTRALINE HCL 50 MG TAB PO SCH (20:21)
[2023-04-28] VITALS (11 sets, daily range): BP systolic 85–128; BP diastolic 50–63; TEMP 97–98.2; O2SAT 95–96
[2023-04-28] MEDS: D5W/0.45% SODIUM CHLORIDE 1,000 ML IV SCH ×2 (02:12→15:59)
[2023-04-28] MEDS ORDERED: MIDODRINE 5 MG TAB PO ONE (05:00)
[2023-04-28] MEDS: SODIUM CHLORIDE 0.9% INJ 10 ML SYR IV SCH ×2 (05:09→17:39)
[2023-04-28 08:12] LABS: BASO % 0.5 % (0.0-1.0); EOS # 0.1 10^3/uL (0.0-0.5); EOS % 2.3 % (0.0-3.0); HEMATOCRIT 19.4 % (36.0-47.0); LYMPH # 0.2 10^3/uL (1.5-5.0); MEAN CORPUSCULAR HEMOGLOBIN 35.9 pg (27.0-33.0); MEAN CORPUSCULAR HGB CONC 36.1 g/dl (32.0-36.5); MEAN CORPUSCULAR VOLUME 99.5 fl (80.0-96.0); MONO # 0.3 10^3/uL (0.0-0.8); MONO % 12.8 % (2.0-8.0); NEUTROPHILS # 1.6 10^3/uL (1.5-8.5); NEUTROPHILS % 72.6 % (36.0-66.0); PLATELET COUNT, AUTOMATED 45 10^3/uL (150-450); RED BLOOD COUNT 1.95 10^6/uL (4.00-5.40); WHITE BLOOD COUNT 2.2 10^3/uL (4.0-10.0)
[2023-04-28 08:48] LABS: ALBUMIN 2.5 G/DL (3.2-5.2); ALKALINE PHOSPHATASE 81 U/L (46-116); ALT/SGPT 80 U/L (7.0-40); AST/SGOT 27 U/L (<34); BILIRUBIN,TOTAL 1.5 MG/DL (0.3-1.2); BLOOD UREA NITROGEN 13 MG/DL (9-23); CARBON DIOXIDE LEVEL 27 MMOL/L (20-31); CHLORIDE LEVEL 103 MMOL/L (98-107); CREATININE FOR GFR 0.33 MG/DL (0.55-1.30); GLOMERULAR FILTRATION RATE > 60.0 (>45); GLUCOSE, FASTING 95 MG/DL (74-106); MAGNESIUM LEVEL 1.8 MG/DL (1.8-2.4); POTASSIUM SERUM 3.3 MMOL/L (3.5-5.1); SODIUM LEVEL 136 MMOL/L (136-145); TOTAL PROTEIN 4.2 G/DL (5.7-8.2)
[2023-04-28] MEDS ORDERED: MAGNESIUM OXIDE 400MG TAB (MAG-OX) PO ONE (08:50)
[2023-04-28] MEDS ORDERED: POTASSIUM CHLORIDE 10MEQ SR TABLET PO ONE (08:50)
[2023-04-28] MEDS: METOPROLOL SUCC (TopROL XL) 50MG **XL** TAB PO SCH ×2 (09:00→20:43)
[2023-04-28] MEDS: PROPRANOLOL 10 MG TAB PO SCH ×3 (09:00→20:43)
[2023-04-28] MEDS: ONDANSETRON 4MG ORAL DISINTEGRATING TAB PO SCH (09:00)
[2023-04-28] MEDS: SPIRONOLACTONE 25 MG TAB PO SCH (09:00)
[2023-04-28] MEDS: LACOSAMIDE 50 MG TAB (VIMPAT) PO SCH ×2 (09:01→20:45)
[2023-04-28] MEDS: TOPIRAMATE (TopAMAX) 25 MG TAB PO SCH (09:02)
[2023-04-28] MEDS: BACTRIM 80MG/400MG TAB PO SCH (09:02)
[2023-04-28] MEDS: PANTOPRAZOLE 40MG TAB (PROTONIX) PO SCH (09:02)
[2023-04-28] MEDS: ASCORBIC ACID 500 MG TAB PO SCH (09:02)
[2023-04-28] MEDS: dexAMETHasone 4 MG TAB PO SCH (09:03)
[2023-04-28] MEDS: INSULIN LISPRO (NovoLOG) PER UNIT SC SCH ×3 (09:04→17:38)
[2023-04-28] MEDS: LEVEMIR (INSULIN DETEMIR) 1 UNITS/0.01ML SC SCH ×2 (09:04→20:44)
[2023-04-28] MEDS: VITAMIN D 1,000 INTERNATIONAL UNITS TABLET PO SCH (09:04)
[2023-04-28] MEDS ORDERED: ROMIPLOSTIM 250 MCG SC ONE (11:00)
[2023-04-28] MEDS: SERTRALINE HCL 50 MG TAB PO SCH (20:44)
[2023-04-29] VITALS (12 sets, daily range): BP systolic 87–132; BP diastolic 59–84; TEMP 97.7–98.6; O2SAT 93–97
[2023-04-29] MEDS: SODIUM CHLORIDE 0.9% INJ 10 ML SYR IV SCH ×2 (05:56→18:10)
[2023-04-29] MEDS: D5W/0.45% SODIUM CHLORIDE 1,000 ML IV SCH (05:57)
[2023-04-29 06:13] LABS: MEAN CORPUSCULAR HEMOGLOBIN 35.6 pg (27.0-33.0); MEAN CORPUSCULAR HGB CONC 35.4 g/dl (32.0-36.5); MEAN CORPUSCULAR VOLUME 100.6 fl (80.0-96.0); PLATELET COUNT, AUTOMATED 59 10^3/uL (150-450); RED BLOOD COUNT 1.74 10^6/uL (4.00-5.40); WHITE BLOOD COUNT 1.6 10^3/uL (4.0-10.0)
[2023-04-29 06:14] LABS: HEMOGLOBIN 6.2 g/dl (12.0-15.5)
[2023-04-29 06:16] LABS: HEMATOCRIT 17.5 % (36.0-47.0)
[2023-04-29 06:33] LABS: ANISOCYTOSIS 2+; BASOPHILS 1 % (0-1); EOSINOPHILS 2 % (0-3); LYMPHOCYTES 11 % (16-44); MONOCYTES 6 % (0-5); NEUTROPHILS 80 % (28-66); PLATELET ESTIMATE DECREASED (NORMAL); POIKILOCYTOSIS 2+; POLYCHROMASIA 2+
[2023-04-29 07:02] LABS: ALBUMIN 2.5 G/DL (3.2-5.2); ALKALINE PHOSPHATASE 82 U/L (46-116); ALT/SGPT 88 U/L (7.0-40); AST/SGOT 31 U/L (<34); BILIRUBIN,TOTAL 1.4 MG/DL (0.3-1.2); BLOOD UREA NITROGEN 12 MG/DL (9-23); CALCIUM LEVEL 7.8 MG/DL (8.3-10.6); CARBON DIOXIDE LEVEL 26 MMOL/L (20-31); CHLORIDE LEVEL 105 MMOL/L (98-107); CREATININE FOR GFR 0.35 MG/DL (0.55-1.30); GLOMERULAR FILTRATION RATE > 60.0 (>45); GLUCOSE, FASTING 99 MG/DL (74-106); MAGNESIUM LEVEL 1.8 MG/DL (1.8-2.4); POTASSIUM SERUM 3.2 MMOL/L (3.5-5.1); SODIUM LEVEL 135 MMOL/L (136-145); TOTAL PROTEIN 4.1 G/DL (5.7-8.2)
[2023-04-29] MEDS ORDERED: FUROSEMIDE 20MG/2ML VIAL IV ONE (07:05)
[2023-04-29] MEDS: LEVEMIR (INSULIN DETEMIR) 1 UNITS/0.01ML SC SCH ×3 (09:00→20:20)
[2023-04-29] MEDS: LACOSAMIDE 50 MG TAB (VIMPAT) PO SCH ×2 (09:41→20:22)
[2023-04-29] MEDS: TOPIRAMATE (TopAMAX) 25 MG TAB PO SCH (09:41)
[2023-04-29] MEDS: dexAMETHasone 4 MG TAB PO SCH (09:41)
[2023-04-29] MEDS: ONDANSETRON 4MG ORAL DISINTEGRATING TAB PO SCH (09:41)
[2023-04-29] MEDS: BACTRIM 80MG/400MG TAB PO SCH (09:42)
[2023-04-29] MEDS: PERCOCET 5MG/325MG TAB PO PRN (12:55)
[2023-04-29] MEDS ORDERED: POTASSIUM CHLORIDE 10MEQ SR TABLET PO ONE (14:00)
[2023-04-29] MEDS: SODIUM CHLORIDE 0.9% INJ 10 ML SYR IV PRN (14:02)
[2023-04-29] MEDS ORDERED: FUROSEMIDE 40MG/4ML VIAL IV ONE (18:20)
[2023-04-29] MEDS: SERTRALINE HCL 50 MG TAB PO SCH (20:22)
[2023-04-29] MEDS: NYSTATIN 100,000 UNITS/GM TOPICAL PWD 15GM TOP SCH (20:23)
[2023-04-30] VITALS (7 sets, daily range): BP systolic 82–112; BP diastolic 54–68; TEMP 96.8–98.1; O2SAT 94–96
[2023-04-30] MEDS: SODIUM CHLORIDE 0.9% INJ 10 ML SYR IV SCH ×2 (05:47→17:30)
[2023-04-30 06:34] LABS: HEMATOCRIT 27.1 % (36.0-47.0); MEAN CORPUSCULAR HGB CONC 36.5 g/dl (32.0-36.5); MEAN CORPUSCULAR VOLUME 93.1 fl (80.0-96.0); RED BLOOD COUNT 2.91 10^6/uL (4.00-5.40); WHITE BLOOD COUNT 1.5 10^3/uL (4.0-10.0)
[2023-04-30 06:38] LABS: PLATELET COUNT, AUTOMATED 37 10^3/uL (150-450)
[2023-04-30 06:39] LABS: HEMOGLOBIN 9.9 g/dl (12.0-15.5)
[2023-04-30 06:47] LABS: ALBUMIN 2.7 G/DL (3.2-5.2); ALKALINE PHOSPHATASE 91 U/L (46-116); ALT/SGPT 125 U/L (7.0-40); AST/SGOT 48 U/L (<34); BILIRUBIN,TOTAL 2.5 MG/DL (0.3-1.2); BLOOD UREA NITROGEN 14 MG/DL (9-23); CALCIUM LEVEL 8.5 MG/DL (8.3-10.6); CARBON DIOXIDE LEVEL 27 MMOL/L (20-31); CHLORIDE LEVEL 101 MMOL/L (98-107); CREATININE FOR GFR 0.36 MG/DL (0.55-1.30); GLOMERULAR FILTRATION RATE > 60.0 (>45); GLUCOSE, FASTING 109 MG/DL (74-106); POTASSIUM SERUM 3.1 MMOL/L (3.5-5.1); SODIUM LEVEL 136 MMOL/L (136-145); TOTAL PROTEIN 4.5 G/DL (5.7-8.2)
[2023-04-30 07:24] LABS: ATYPICAL LYMPH 2 % (0-5); EOSINOPHILS 5 % (0-3); LYMPHOCYTES 8 % (16-44); MONOCYTES 9 % (0-5); NEUTROPHILS 76 % (28-66); POLYCHROMASIA 1+
[2023-04-30 07:25] LABS: ANISOCYTOSIS 1+; PLATELET ESTIMATE MARKED DECREASE (NORMAL)
[2023-04-30] MEDS: BACTRIM 80MG/400MG TAB PO SCH (09:51)
[2023-04-30] MEDS: ONDANSETRON 4MG ORAL DISINTEGRATING TAB PO SCH (09:52)
[2023-04-30] MEDS: dexAMETHasone 4 MG TAB PO SCH (09:52)
[2023-04-30] MEDS: TOPIRAMATE (TopAMAX) 25 MG TAB PO SCH (09:52)
[2023-04-30] MEDS: LACOSAMIDE 50 MG TAB (VIMPAT) PO SCH ×2 (09:52→21:23)
[2023-04-30] MEDS: NYSTATIN 100,000 UNITS/GM TOPICAL PWD 15GM TOP SCH ×2 (09:55→21:26)
[2023-04-30] MEDS ORDERED: POTASSIUM CHLORIDE 10MEQ SR TABLET PO ONE (10:10)
[2023-04-30] MEDS: FUROSEMIDE 40MG/4ML VIAL IV SCH ×2 (11:07→17:00)
[2023-04-30] MEDS: KCL 10MEQ/100ML SWI (KRUN) 10 MEQ in IV 1 EA IV SCH ×4 (11:08→14:37)
[2023-04-30] MEDS: PERCOCET 5MG/325MG TAB PO PRN (13:44)
[2023-04-30] MEDS: ACETAMINOPHEN TAB 650MG DOSE (2X325MG) PO PRN (13:45)
[2023-04-30] MEDS: SERTRALINE HCL 50 MG TAB PO SCH (21:23)
[2023-04-30] MEDS: POTASSIUM CHLORIDE 10MEQ SR TABLET PO SCH (21:24)
[2023-04-30] MEDS: LEVEMIR (INSULIN DETEMIR) 1 UNITS/0.01ML SC SCH (21:24)
[2023-05-01] VITALS (10 sets, daily range): BP systolic 104–135; BP diastolic 58–82; TEMP 96.7–98; O2SAT 93–96
[2023-05-01] MEDS: SODIUM CHLORIDE 0.9% INJ 10 ML SYR IV SCH ×2 (06:20→16:00)
[2023-05-01 06:22] LABS: ALBUMIN 2.9 G/DL (3.2-5.2); ALKALINE PHOSPHATASE 93 U/L (46-116); ALT/SGPT 145 U/L (7.0-40); AST/SGOT 48 U/L (<34); BILIRUBIN,TOTAL 2.3 MG/DL (0.3-1.2); BLOOD UREA NITROGEN 15 MG/DL (9-23); CALCIUM LEVEL 8.3 MG/DL (8.3-10.6); CARBON DIOXIDE LEVEL 28 MMOL/L (20-31); CHLORIDE LEVEL 104 MMOL/L (98-107); CREATININE FOR GFR 0.33 MG/DL (0.55-1.30); GLOMERULAR FILTRATION RATE > 60.0 (>45); GLUCOSE, FASTING 95 MG/DL (74-106); MAGNESIUM LEVEL 1.8 MG/DL (1.8-2.4); POTASSIUM SERUM 3.9 MMOL/L (3.5-5.1); SODIUM LEVEL 138 MMOL/L (136-145); TOTAL PROTEIN 4.6 G/DL (5.7-8.2)
[2023-05-01 06:42] LABS: HEMATOCRIT 26.8 % (36.0-47.0); HEMOGLOBIN 9.6 g/dl (12.0-15.5); MEAN CORPUSCULAR HEMOGLOBIN 33.8 pg (27.0-33.0); MEAN CORPUSCULAR HGB CONC 35.8 g/dl (32.0-36.5); MEAN CORPUSCULAR VOLUME 94.4 fl (80.0-96.0); RED BLOOD COUNT 2.84 10^6/uL (4.00-5.40); WHITE BLOOD COUNT 1.6 10^3/uL (4.0-10.0)
[2023-05-01 06:46] LABS: PLATELET COUNT, AUTOMATED 28 10^3/uL (150-450)
[2023-05-01 07:31] LABS: ATYPICAL LYMPH 5 % (0-5); BASOPHILS 2 % (0-1); EOSINOPHILS 2 % (0-3); LYMPHOCYTES 8 % (16-44); MONOCYTES 18 % (0-5); NEUTROPHILS 65 % (28-66); NUCLEATED RED BLOOD CELL 1 % (0-0); PLATELET ESTIMATE DECREASED (NORMAL)
[2023-05-01 07:33] LABS: POLYCHROMASIA 1+
[2023-05-01] MEDS: FUROSEMIDE 40MG/4ML VIAL IV SCH ×2 (08:34→15:59)
[2023-05-01] MEDS: LACOSAMIDE 50 MG TAB (VIMPAT) PO SCH ×2 (08:41→20:39)
[2023-05-01] MEDS: BACTRIM 80MG/400MG TAB PO SCH (08:41)
[2023-05-01] MEDS: dexAMETHasone 4 MG TAB PO SCH (08:41)
[2023-05-01] MEDS: ONDANSETRON 4MG ORAL DISINTEGRATING TAB PO SCH (08:41)
[2023-05-01] MEDS: NYSTATIN 100,000 UNITS/GM TOPICAL PWD 15GM TOP SCH ×2 (08:42→20:44)
[2023-05-01] MEDS: FILGRASTIM 300MCG 0.5ML SYRINGE **SC ADMINISTRATION ONLY SC SCH (14:29)
[2023-05-01] MEDS: TOPIRAMATE (TopAMAX) 25 MG TAB PO SCH (14:29)
[2023-05-01] MEDS: LEVEMIR (INSULIN DETEMIR) 1 UNITS/0.01ML SC SCH (20:38)
[2023-05-01] MEDS: POTASSIUM CHLORIDE 10MEQ SR TABLET PO SCH (20:39)
[2023-05-01] MEDS: SERTRALINE HCL 50 MG TAB PO SCH (20:39)
[2023-05-01] MEDS: ACETAMINOPHEN TAB 650MG DOSE (2X325MG) PO PRN (20:43)
[2023-05-02] VITALS (9 sets, daily range): BP systolic 96–129; BP diastolic 55–77; TEMP 97.2–98.6; O2SAT 92–97
[2023-05-02] MEDS: SODIUM CHLORIDE 0.9% INJ 10 ML SYR IV SCH ×2 (05:39→18:45)
[2023-05-02 07:41] LABS: HEMATOCRIT 26.5 % (36.0-47.0); HEMOGLOBIN 9.5 g/dl (12.0-15.5); MEAN CORPUSCULAR HEMOGLOBIN 34.5 pg (27.0-33.0); MEAN CORPUSCULAR HGB CONC 35.8 g/dl (32.0-36.5); MEAN CORPUSCULAR VOLUME 96.4 fl (80.0-96.0); RED BLOOD COUNT 2.75 10^6/uL (4.00-5.40); WHITE BLOOD COUNT 4.7 10^3/uL (4.0-10.0)
[2023-05-02 07:48] LABS: PLATELET COUNT, AUTOMATED 28 10^3/uL (150-450)
[2023-05-02 08:02] LABS: ALBUMIN 2.8 G/DL (3.2-5.2); ALKALINE PHOSPHATASE 100 U/L (46-116); ALT/SGPT 171 U/L (7.0-40); AST/SGOT 47 U/L (<34); BILIRUBIN,DIRECT 0.7 MG/DL (<0.4); BILIRUBIN,TOTAL 2.4 MG/DL (0.3-1.2); BLOOD UREA NITROGEN 17 MG/DL (9-23); CALCIUM LEVEL 9.2 MG/DL (8.3-10.6); CARBON DIOXIDE LEVEL 27 MMOL/L (20-31); CHLORIDE LEVEL 104 MMOL/L (98-107); CREATININE FOR GFR 0.38 MG/DL (0.55-1.30); GLOMERULAR FILTRATION RATE > 60.0 (>45); GLUCOSE, FASTING 88 MG/DL (74-106); POTASSIUM SERUM 3.8 MMOL/L (3.5-5.1); SODIUM LEVEL 139 MMOL/L (136-145); TOTAL PROTEIN 4.6 G/DL (5.7-8.2)
[2023-05-02 08:20] LABS: ATYPICAL LYMPH 4 % (0-5); BASOPHILS 1 % (0-1); EOSINOPHILS 1 % (0-3); LYMPHOCYTES 3 % (16-44); MONOCYTES 10 % (0-5); NEUTROPHILS 74 % (28-66); PLATELET ESTIMATE MARKED DECREASE (NORMAL)
[2023-05-02 08:21] LABS: POLYCHROMASIA 1+; TOXIC GRANULATION 2+
[2023-05-02 08:23] LABS: ANISOCYTOSIS 1+
[2023-05-02] MEDS: FUROSEMIDE 40MG/4ML VIAL IV SCH ×2 (09:00→16:58)
[2023-05-02] MEDS: ACETAMINOPHEN TAB 650MG DOSE (2X325MG) PO PRN ×3 (10:30→23:35)
[2023-05-02] MEDS: ONDANSETRON 4MG ORAL DISINTEGRATING TAB PO SCH (10:30)
[2023-05-02] MEDS: TOPIRAMATE (TopAMAX) 25 MG TAB PO SCH (10:30)
[2023-05-02] MEDS: guaiFENesin ER 600 MG TAB PO PRN (10:30)
[2023-05-02] MEDS: NYSTATIN 100,000 UNITS/GM TOPICAL PWD 15GM TOP SCH ×2 (10:30→21:24)
[2023-05-02] MEDS: LACOSAMIDE 50 MG TAB (VIMPAT) PO SCH ×2 (10:31→21:23)
[2023-05-02] MEDS: dexAMETHasone 4 MG TAB PO SCH (10:31)
[2023-05-02] MEDS: LevoFLOXacin 750 MG TABLET PO SCH (13:33)
[2023-05-02] MEDS: FILGRASTIM 300MCG 0.5ML SYRINGE **SC ADMINISTRATION ONLY SC SCH (13:33)
[2023-05-02] MEDS: POTASSIUM CHLORIDE 10MEQ SR TABLET PO SCH (21:23)
[2023-05-02] MEDS: LEVEMIR (INSULIN DETEMIR) 1 UNITS/0.01ML SC SCH (21:23)
[2023-05-02] MEDS: SERTRALINE HCL 50 MG TAB PO SCH (21:23)
[2023-05-03] VITALS (10 sets, daily range): BP systolic 94–114; BP diastolic 50–81; TEMP 97–98.9; O2SAT 92–99
[2023-05-03 04:18] LABS: HEMATOCRIT 24.9 % (36.0-47.0); HEMOGLOBIN 8.6 g/dl (12.0-15.5); MEAN CORPUSCULAR HEMOGLOBIN 33.9 pg (27.0-33.0); MEAN CORPUSCULAR HGB CONC 34.5 g/dl (32.0-36.5); RED BLOOD COUNT 2.54 10^6/uL (4.00-5.40)
[2023-05-03 04:21] LABS: PLATELET COUNT, AUTOMATED 27 10^3/uL (150-450)
[2023-05-03 04:50] LABS: ALBUMIN 2.7 G/DL (3.2-5.2); ALKALINE PHOSPHATASE 96 U/L (46-116); ALT/SGPT 133 U/L (7.0-40); AST/SGOT 27 U/L (<34); BILIRUBIN,TOTAL 1.8 MG/DL (0.3-1.2); BLOOD UREA NITROGEN 17 MG/DL (9-23); CARBON DIOXIDE LEVEL 27 MMOL/L (20-31); CHLORIDE LEVEL 106 MMOL/L (98-107); CREATININE FOR GFR 0.32 MG/DL (0.55-1.30); GLOMERULAR FILTRATION RATE > 60.0 (>45); GLUCOSE, FASTING 92 MG/DL (74-106); POTASSIUM SERUM 3.6 MMOL/L (3.5-5.1); SODIUM LEVEL 139 MMOL/L (136-145); TOTAL PROTEIN 4.3 G/DL (5.7-8.2)
[2023-05-03 05:07] LABS: ATYPICAL LYMPH 2 % (0-5); EOSINOPHILS 1 % (0-3); LYMPHOCYTES 7 % (16-44); METAMYELOCYTES 3 % (0-0); MONOCYTES 8 % (0-5); NEUTROPHILS 76 % (28-66)
[2023-05-03 05:08] LABS: ANISOCYTOSIS 2+; MICROCYTOSIS 1+; PLATELET ESTIMATE MARKED DECREASE (NORMAL); POIKILOCYTOSIS 1+; POLYCHROMASIA 1+
[2023-05-03] MEDS: LevoFLOXacin 750 MG TABLET PO SCH (05:51)
[2023-05-03] MEDS: SODIUM CHLORIDE 0.9% INJ 10 ML SYR IV SCH ×2 (05:52→18:08)
[2023-05-03] MEDS: TOPIRAMATE (TopAMAX) 25 MG TAB PO SCH (08:55)
[2023-05-03] MEDS: dexAMETHasone 4 MG TAB PO SCH (08:55)
[2023-05-03] MEDS: ONDANSETRON 4MG ORAL DISINTEGRATING TAB PO SCH (08:55)
[2023-05-03] MEDS: LACOSAMIDE 50 MG TAB (VIMPAT) PO SCH ×2 (08:55→21:20)
[2023-05-03] MEDS: NYSTATIN 100,000 UNITS/GM TOPICAL PWD 15GM TOP SCH ×2 (08:56→21:22)
[2023-05-03] MEDS: ACETAMINOPHEN TAB 650MG DOSE (2X325MG) PO PRN ×2 (14:22→21:21)
[2023-05-03] MEDS: LEVEMIR (INSULIN DETEMIR) 1 UNITS/0.01ML SC SCH (21:00)
[2023-05-03] MEDS: POTASSIUM CHLORIDE 10MEQ SR TABLET PO SCH (21:20)
[2023-05-03] MEDS: SERTRALINE HCL 50 MG TAB PO SCH (21:20)
[2023-05-04] MEDS: SODIUM CHLORIDE 0.9% INJ 10 ML SYR IV SCH ×2 (05:12→17:53)
[2023-05-04] MEDS: LevoFLOXacin 750 MG TABLET PO SCH (05:12)
[2023-05-04 05:38] LABS: HEMATOCRIT 26.1 % (36.0-47.0); MEAN CORPUSCULAR HGB CONC 34.5 g/dl (32.0-36.5); MEAN CORPUSCULAR VOLUME 98.5 fl (80.0-96.0); RED BLOOD COUNT 2.65 10^6/uL (4.00-5.40); WHITE BLOOD COUNT 4.8 10^3/uL (4.0-10.0)
[2023-05-04 05:46] LABS: PLATELET COUNT, AUTOMATED 52 10^3/uL (150-450)
[2023-05-04 06:00] LABS: LYMPHOCYTES 7 % (16-44); MONOCYTES 13 % (0-5); NEUTROPHILS 80 % (28-66); PLATELET ESTIMATE DECREASED (NORMAL)
[2023-05-04 06:12] LABS: ALBUMIN 2.9 G/DL (3.2-5.2); ALKALINE PHOSPHATASE 98 U/L (46-116); ALT/SGPT 99 U/L (7.0-40); AST/SGOT 17 U/L (<34); BILIRUBIN,TOTAL 1.4 MG/DL (0.3-1.2); BLOOD UREA NITROGEN 16 MG/DL (9-23); CALCIUM LEVEL 8.9 MG/DL (8.3-10.6); CARBON DIOXIDE LEVEL 27 MMOL/L (20-31); CHLORIDE LEVEL 107 MMOL/L (98-107); CREATININE FOR GFR 0.33 MG/DL (0.55-1.30); GLOMERULAR FILTRATION RATE > 60.0 (>45); GLUCOSE, FASTING 107 MG/DL (74-106); POTASSIUM SERUM 3.5 MMOL/L (3.5-5.1); SODIUM LEVEL 142 MMOL/L (136-145); TOTAL PROTEIN 4.7 G/DL (5.7-8.2)
[2023-05-04 07:30] VITALS: BP 103/59; TEMP 97.2; O2SAT 92
[2023-05-04] MEDS: TOPIRAMATE (TopAMAX) 25 MG TAB PO SCH (09:11)
[2023-05-04] MEDS: dexAMETHasone 4 MG TAB PO SCH (09:11)
[2023-05-04] MEDS: ONDANSETRON 4MG ORAL DISINTEGRATING TAB PO SCH (09:12)
[2023-05-04] MEDS: LACOSAMIDE 50 MG TAB (VIMPAT) PO SCH ×2 (09:12→21:00)
[2023-05-04] MEDS: NYSTATIN 100,000 UNITS/GM TOPICAL PWD 15GM TOP SCH ×2 (09:12→21:01)
[2023-05-04 15:37] VITALS: BP 95/65; TEMP 98.1; O2SAT 95
[2023-05-04 20:09] VITALS: BP 127/79; TEMP 97.3; O2SAT 93
[2023-05-04] MEDS: LEVEMIR (INSULIN DETEMIR) 1 UNITS/0.01ML SC SCH (21:00)
[2023-05-04] MEDS: ACETAMINOPHEN TAB 650MG DOSE (2X325MG) PO PRN (21:00)
[2023-05-04] MEDS: POTASSIUM CHLORIDE 10MEQ SR TABLET PO SCH (21:01)
[2023-05-04] MEDS: SERTRALINE HCL 50 MG TAB PO SCH (21:01)
[2023-05-05 03:49] VITALS: BP 108/70; TEMP 97.5; O2SAT 95
[2023-05-05] MEDS: LevoFLOXacin 750 MG TABLET PO SCH (05:02)
[2023-05-05] MEDS: SODIUM CHLORIDE 0.9% INJ 10 ML SYR IV SCH ×2 (05:03→17:16)
[2023-05-05 05:37] LABS: HEMATOCRIT 28.3 % (36.0-47.0); HEMOGLOBIN 9.5 g/dl (12.0-15.5); MEAN CORPUSCULAR HEMOGLOBIN 33.2 pg (27.0-33.0); MEAN CORPUSCULAR HGB CONC 33.6 g/dl (32.0-36.5); RED BLOOD COUNT 2.86 10^6/uL (4.00-5.40); WHITE BLOOD COUNT 3.5 10^3/uL (4.0-10.0)
[2023-05-05 05:40] LABS: PLATELET COUNT, AUTOMATED 40 10^3/uL (150-450)
[2023-05-05 05:54] LABS: ATYPICAL LYMPH 1 % (0-5); BASOPHILS 1 % (0-1); EOSINOPHILS 3 % (0-3); LYMPHOCYTES 17 % (16-44); METAMYELOCYTES 2 % (0-0); MONOCYTES 19 % (0-5); NEUTROPHILS 57 % (28-66)
[2023-05-05 05:55] LABS: ANISOCYTOSIS 1+; PLATELET ESTIMATE DECREASED (NORMAL); POLYCHROMASIA 2+
[2023-05-05 05:58] LABS: ALKALINE PHOSPHATASE 98 U/L (46-116); ALT/SGPT 79 U/L (7.0-40); AST/SGOT 17 U/L (<34); BILIRUBIN,TOTAL 1.4 MG/DL (0.3-1.2); BLOOD UREA NITROGEN 18 MG/DL (9-23); CARBON DIOXIDE LEVEL 25 MMOL/L (20-31); CHLORIDE LEVEL 106 MMOL/L (98-107); CREATININE FOR GFR 0.34 MG/DL (0.55-1.30); GLOMERULAR FILTRATION RATE > 60.0 (>45); GLUCOSE, FASTING 110 MG/DL (74-106); POTASSIUM SERUM 3.5 MMOL/L (3.5-5.1); SODIUM LEVEL 140 MMOL/L (136-145); TOTAL PROTEIN 4.8 G/DL (5.7-8.2)
[2023-05-05 07:43] VITALS: BP 111/56; TEMP 98; O2SAT 92
[2023-05-05] MEDS: NYSTATIN 100,000 UNITS/GM TOPICAL PWD 15GM TOP SCH ×2 (09:08→20:57)
[2023-05-05] MEDS: dexAMETHasone 2 MG TAB PO SCH (09:08)
[2023-05-05] MEDS: ONDANSETRON 4MG ORAL DISINTEGRATING TAB PO SCH (09:08)
[2023-05-05] MEDS: LACOSAMIDE 50 MG TAB (VIMPAT) PO SCH ×2 (09:08→20:56)
[2023-05-05] MEDS: TOPIRAMATE (TopAMAX) 25 MG TAB PO SCH (09:08)
[2023-05-05 11:15] VITALS: BP 107/58; TEMP 97.8; O2SAT 93
[2023-05-05] MEDS: PERCOCET 5MG/325MG TAB PO PRN (14:05)
[2023-05-05 20:38] VITALS: BP 105/55; TEMP 96.7; O2SAT 93
[2023-05-05] MEDS: LEVEMIR (INSULIN DETEMIR) 1 UNITS/0.01ML SC SCH (20:56)
[2023-05-05] MEDS: SERTRALINE HCL 50 MG TAB PO SCH (20:57)
[2023-05-05] MEDS: POTASSIUM CHLORIDE 10MEQ SR TABLET PO SCH (20:57)
[2023-05-06 04:39] VITALS: BP 108/57; TEMP 96.8; O2SAT 93
[2023-05-06] MEDS: SODIUM CHLORIDE 0.9% INJ 10 ML SYR IV SCH ×2 (05:31→17:29)
[2023-05-06] MEDS: LevoFLOXacin 750 MG TABLET PO SCH (05:31)
[2023-05-06 06:34] LABS: HEMATOCRIT 25.7 % (36.0-47.0); HEMOGLOBIN 8.8 g/dl (12.0-15.5); MEAN CORPUSCULAR HEMOGLOBIN 33.8 pg (27.0-33.0); MEAN CORPUSCULAR HGB CONC 34.2 g/dl (32.0-36.5); MEAN CORPUSCULAR VOLUME 98.8 fl (80.0-96.0); WHITE BLOOD COUNT 2.9 10^3/uL (4.0-10.0)
[2023-05-06 07:03] LABS: ALBUMIN 2.8 G/DL (3.2-5.2); ALKALINE PHOSPHATASE 89 U/L (46-116); ALT/SGPT 60 U/L (7.0-40); AST/SGOT 16 U/L (<34); BILIRUBIN,TOTAL 1.2 MG/DL (0.3-1.2); BLOOD UREA NITROGEN 18 MG/DL (9-23); CALCIUM LEVEL 8.3 MG/DL (8.3-10.6); CARBON DIOXIDE LEVEL 26 MMOL/L (20-31); CHLORIDE LEVEL 109 MMOL/L (98-107); CREATININE FOR GFR 0.32 MG/DL (0.55-1.30); GLOMERULAR FILTRATION RATE > 60.0 (>45); GLUCOSE, FASTING 106 MG/DL (74-106); POTASSIUM SERUM 3.4 MMOL/L (3.5-5.1); SODIUM LEVEL 142 MMOL/L (136-145); TOTAL PROTEIN 4.4 G/DL (5.7-8.2)
[2023-05-06 07:06] LABS: PLATELET COUNT, AUTOMATED 28 10^3/uL (150-450)
[2023-05-06 07:24] LABS: BASOPHILS 6 % (0-1); EOSINOPHILS 4 % (0-3); LYMPHOCYTES 9 % (16-44); MONOCYTES 34 % (0-5); NEUTROPHILS 47 % (28-66); NUCLEATED RED BLOOD CELL 6 % (0-0); PLATELET ESTIMATE MARKED DECREASE (NORMAL)
[2023-05-06 07:25] LABS: ANISOCYTOSIS 2+; MICROCYTOSIS 1+; POLYCHROMASIA 1+
[2023-05-06 07:26] LABS: HYPOCHROMASIA 1+
[2023-05-06 08:00] VITALS: BP 123/61; TEMP 97.2; O2SAT 94
[2023-05-06] MEDS: ONDANSETRON 4MG ORAL DISINTEGRATING TAB PO SCH (08:10)
[2023-05-06] MEDS: NYSTATIN 100,000 UNITS/GM TOPICAL PWD 15GM TOP SCH ×2 (08:11→20:49)
[2023-05-06] MEDS: LACOSAMIDE 50 MG TAB (VIMPAT) PO SCH ×2 (08:11→20:48)
[2023-05-06] MEDS: dexAMETHasone 2 MG TAB PO SCH (08:11)
[2023-05-06] MEDS: TOPIRAMATE (TopAMAX) 25 MG TAB PO SCH (08:11)
[2023-05-06] MEDS: ACETAMINOPHEN TAB 650MG DOSE (2X325MG) PO PRN ×2 (12:21→18:45)
[2023-05-06 16:00] VITALS: BP 108/56; TEMP 96.2; O2SAT 96
[2023-05-06 20:15] VITALS: BP 98/60; TEMP 96.7; O2SAT 95
[2023-05-06] MEDS: LEVEMIR (INSULIN DETEMIR) 1 UNITS/0.01ML SC SCH (20:47)
[2023-05-06] MEDS: SERTRALINE HCL 50 MG TAB PO SCH (20:48)
[2023-05-06] MEDS: POTASSIUM CHLORIDE 10MEQ SR TABLET PO SCH (20:48)
[2023-05-07 03:45] VITALS: BP 93/55; TEMP 96.9; O2SAT 96
[2023-05-07] MEDS: SODIUM CHLORIDE 0.9% INJ 10 ML SYR IV SCH ×2 (05:13→17:34)
[2023-05-07 05:52] LABS: HEMATOCRIT 24.8 % (36.0-47.0); HEMOGLOBIN 8.5 g/dl (12.0-15.5); MEAN CORPUSCULAR HGB CONC 34.3 g/dl (32.0-36.5); MEAN CORPUSCULAR VOLUME 99.2 fl (80.0-96.0); WHITE BLOOD COUNT 3.3 10^3/uL (4.0-10.0)
[2023-05-07 06:04] LABS: ALBUMIN 2.7 G/DL (3.2-5.2); ALKALINE PHOSPHATASE 84 U/L (46-116); ALT/SGPT 50 U/L (7.0-40); AST/SGOT 14 U/L (<34); BILIRUBIN,TOTAL 1.2 MG/DL (0.3-1.2); BLOOD UREA NITROGEN 16 MG/DL (9-23); CALCIUM LEVEL 7.9 MG/DL (8.3-10.6); CARBON DIOXIDE LEVEL 27 MMOL/L (20-31); CHLORIDE LEVEL 108 MMOL/L (98-107); CREATININE FOR GFR 0.33 MG/DL (0.55-1.30); GLOMERULAR FILTRATION RATE > 60.0 (>45); GLUCOSE, FASTING 112 MG/DL (74-106); PLATELET COUNT, AUTOMATED 22 10^3/uL (150-450); POTASSIUM SERUM 3.4 MMOL/L (3.5-5.1); SODIUM LEVEL 142 MMOL/L (136-145); TOTAL PROTEIN 4.4 G/DL (5.7-8.2)
[2023-05-07 07:06] LABS: EOSINOPHILS 8 % (0-3); LYMPHOCYTES 9 % (16-44); MONOCYTES 21 % (0-5); NEUTROPHILS 60 % (28-66); NUCLEATED RED BLOOD CELL 1 % (0-0); PLATELET ESTIMATE MARKED DECREASE (NORMAL)
[2023-05-07 07:07] LABS: ANISOCYTOSIS 2+; MICROCYTOSIS 2+; POLYCHROMASIA 1+
[2023-05-07 07:08] LABS: HYPOCHROMASIA 1+
[2023-05-07 08:01] VITALS: BP 126/66; TEMP 96.7; O2SAT 95
[2023-05-07] MEDS: TOPIRAMATE (TopAMAX) 25 MG TAB PO SCH (08:39)
[2023-05-07] MEDS: LACOSAMIDE 50 MG TAB (VIMPAT) PO SCH ×2 (08:40→20:34)
[2023-05-07] MEDS: ONDANSETRON 4MG ORAL DISINTEGRATING TAB PO SCH (08:40)
[2023-05-07] MEDS: dexAMETHasone 2 MG TAB PO SCH (08:40)
[2023-05-07] MEDS: ACETAMINOPHEN TAB 650MG DOSE (2X325MG) PO PRN ×2 (08:41→14:51)
[2023-05-07] MEDS: NYSTATIN 100,000 UNITS/GM TOPICAL PWD 15GM TOP SCH ×2 (08:41→20:37)
[2023-05-07 12:42] VITALS: BP 116/57; TEMP 97; O2SAT 100
[2023-05-07 20:09] VITALS: BP 112/80; TEMP 97.3; O2SAT 96
[2023-05-07] MEDS: POTASSIUM CHLORIDE 10MEQ SR TABLET PO SCH (20:34)
[2023-05-07] MEDS: SERTRALINE HCL 50 MG TAB PO SCH (20:34)
[2023-05-07] MEDS: LEVEMIR (INSULIN DETEMIR) 1 UNITS/0.01ML SC SCH (20:34)
[2023-05-07] MEDS: PERCOCET 5MG/325MG TAB PO PRN (20:36)
[2023-05-08] VITALS (7 sets, daily range): BP systolic 94–148; BP diastolic 51–79; TEMP 97.2–98.6; O2SAT 93–97
[2023-05-08] MEDS: SODIUM CHLORIDE 0.9% INJ 10 ML SYR IV SCH ×2 (05:21→18:48)
[2023-05-08 05:46] LABS: HEMATOCRIT 23.7 % (36.0-47.0); HEMOGLOBIN 8.1 g/dl (12.0-15.5); MEAN CORPUSCULAR HEMOGLOBIN 34.2 pg (27.0-33.0); MEAN CORPUSCULAR HGB CONC 34.2 g/dl (32.0-36.5); RED BLOOD COUNT 2.37 10^6/uL (4.00-5.40); WHITE BLOOD COUNT 3.8 10^3/uL (4.0-10.0)
[2023-05-08 06:04] LABS: PLATELET COUNT, AUTOMATED 19 10^3/uL (150-450)
[2023-05-08 06:18] LABS: ALBUMIN 2.6 G/DL (3.2-5.2); ALKALINE PHOSPHATASE 75 U/L (46-116); ALT/SGPT 38 U/L (7.0-40); AST/SGOT 15 U/L (<34); BILIRUBIN,TOTAL 1.2 MG/DL (0.3-1.2); BLOOD UREA NITROGEN 16 MG/DL (9-23); CALCIUM LEVEL 8.1 MG/DL (8.3-10.6); CARBON DIOXIDE LEVEL 27 MMOL/L (20-31); CHLORIDE LEVEL 108 MMOL/L (98-107); CREATININE FOR GFR 0.31 MG/DL (0.55-1.30); GLOMERULAR FILTRATION RATE > 60.0 (>45); GLUCOSE, FASTING 105 MG/DL (74-106); POTASSIUM SERUM 3.4 MMOL/L (3.5-5.1); SODIUM LEVEL 143 MMOL/L (136-145); TOTAL PROTEIN 4.2 G/DL (5.7-8.2)
[2023-05-08 06:31] LABS: ANISOCYTOSIS 1+; ATYPICAL LYMPH 1 % (0-5); BASOPHILS 4 % (0-1); EOSINOPHILS 2 % (0-3); LYMPHOCYTES 6 % (16-44); METAMYELOCYTES 1 % (0-0); MONOCYTES 25 % (0-5); NEUTROPHILS 59 % (28-66); NUCLEATED RED BLOOD CELL 2 % (0-0); PLATELET ESTIMATE MARKED DECREASE (NORMAL)
[2023-05-08 06:32] LABS: POLYCHROMASIA 1+
[2023-05-08] MEDS: ONDANSETRON 4MG ORAL DISINTEGRATING TAB PO SCH (08:20)
[2023-05-08] MEDS: TOPIRAMATE (TopAMAX) 25 MG TAB PO SCH (08:20)
[2023-05-08] MEDS: LACOSAMIDE 50 MG TAB (VIMPAT) PO SCH ×2 (08:20→20:37)
[2023-05-08] MEDS: dexAMETHasone 2 MG TAB PO SCH (08:20)
[2023-05-08] MEDS: NYSTATIN 100,000 UNITS/GM TOPICAL PWD 15GM TOP SCH ×2 (08:21→20:38)
[2023-05-08] MEDS ORDERED: POTASSIUM CHLORIDE 10MEQ SR TABLET PO ONE (09:00)
[2023-05-08] MEDS: SODIUM CHLORIDE 0.9% INJ 10 ML SYR IV PRN (14:09)
[2023-05-08] MEDS: LEVEMIR (INSULIN DETEMIR) 1 UNITS/0.01ML SC SCH (20:37)
[2023-05-08] MEDS: SERTRALINE HCL 50 MG TAB PO SCH (20:37)
[2023-05-08] MEDS: POTASSIUM CHLORIDE 10MEQ SR TABLET PO SCH (20:38)
[2023-05-08] MEDS: PERCOCET 5MG/325MG TAB PO PRN (20:39)
[2023-05-09 04:02] LABS: HEMATOCRIT 23.4 % (36.0-47.0); MEAN CORPUSCULAR HEMOGLOBIN 33.9 pg (27.0-33.0); MEAN CORPUSCULAR HGB CONC 34.2 g/dl (32.0-36.5); MEAN CORPUSCULAR VOLUME 99.2 fl (80.0-96.0); RED BLOOD COUNT 2.36 10^6/uL (4.00-5.40)
[2023-05-09 04:24] VITALS: BP 109/60; TEMP 97.8; O2SAT 93
[2023-05-09 04:40] LABS: ALBUMIN 2.9 G/DL (3.2-5.2); ALKALINE PHOSPHATASE 85 U/L (46-116); ALT/SGPT 39 U/L (7.0-40); AST/SGOT 14 U/L (<34); BILIRUBIN,TOTAL 1.3 MG/DL (0.3-1.2); BLOOD UREA NITROGEN 16 MG/DL (9-23); CALCIUM LEVEL 8.5 MG/DL (8.3-10.6); CARBON DIOXIDE LEVEL 26 MMOL/L (20-31); CHLORIDE LEVEL 107 MMOL/L (98-107); GLOMERULAR FILTRATION RATE > 60.0 (>45); GLUCOSE, FASTING 139 MG/DL (74-106); POTASSIUM SERUM 3.5 MMOL/L (3.5-5.1); SODIUM LEVEL 141 MMOL/L (136-145); TOTAL PROTEIN 4.7 G/DL (5.7-8.2)
[2023-05-09 04:51] LABS: PLATELET COUNT, AUTOMATED 60 10^3/uL (150-450)
[2023-05-09 05:08] LABS: BASOPHILS 1 % (0-1); LYMPHOCYTES 8 % (16-44); MONOCYTES 14 % (0-5); NEUTROPHILS 70 % (28-66); PLATELET ESTIMATE DECREASED (NORMAL)
[2023-05-09 05:09] LABS: ANISOCYTOSIS 1+
[2023-05-09] MEDS: SODIUM CHLORIDE 0.9% INJ 10 ML SYR IV SCH ×2 (05:20→17:25)
[2023-05-09 08:00] VITALS: BP 112/63; TEMP 97.7; O2SAT 19
[2023-05-09] MEDS: ONDANSETRON 4MG ORAL DISINTEGRATING TAB PO SCH (09:57)
[2023-05-09] MEDS: dexAMETHasone 2 MG TAB PO SCH (09:57)
[2023-05-09] MEDS: TOPIRAMATE (TopAMAX) 25 MG TAB PO SCH (09:57)
[2023-05-09] MEDS: LACOSAMIDE 50 MG TAB (VIMPAT) PO SCH ×2 (09:58→21:07)
[2023-05-09] MEDS: NYSTATIN 100,000 UNITS/GM TOPICAL PWD 15GM TOP SCH ×2 (09:58→21:39)
[2023-05-09 12:00] VITALS: BP 100/58; TEMP 97.6; O2SAT 94
[2023-05-09] MEDS: ACETAMINOPHEN TAB 650MG DOSE (2X325MG) PO PRN ×2 (14:21→21:09)
[2023-05-09 16:00] VITALS: BP 101/67; TEMP 97; O2SAT 97
[2023-05-09 19:53] VITALS: BP 110/56; TEMP 97.5; O2SAT 97
[2023-05-09 20:22] LABS: PERCENT SATURATION 39.5 % (13.2-45.0)
[2023-05-09] MEDS: LEVEMIR (INSULIN DETEMIR) 1 UNITS/0.01ML SC SCH (20:30)
[2023-05-09 20:47] LABS: FOLATE 15.26 NG/ML (>5.4)
[2023-05-09] MEDS: SERTRALINE HCL 50 MG TAB PO SCH (21:07)
[2023-05-09] MEDS: POTASSIUM CHLORIDE 10MEQ SR TABLET PO SCH (21:07)
[2023-05-10] VITALS (10 sets, daily range): BP systolic 104–125; BP diastolic 63–84; TEMP 96.5–98.8; O2SAT 84–97
[2023-05-10 05:15] LABS: HEMATOCRIT 21.8 % (36.0-47.0); HEMOGLOBIN 7.5 g/dl (12.0-15.5); MEAN CORPUSCULAR HEMOGLOBIN 34.4 pg (27.0-33.0); MEAN CORPUSCULAR HGB CONC 34.4 g/dl (32.0-36.5); RED BLOOD COUNT 2.18 10^6/uL (4.00-5.40); WHITE BLOOD COUNT 3.7 10^3/uL (4.0-10.0)
[2023-05-10] MEDS: SODIUM CHLORIDE 0.9% INJ 10 ML SYR IV SCH ×2 (05:20→18:00)
[2023-05-10 05:24] LABS: PLATELET COUNT, AUTOMATED 42 10^3/uL (150-450)
[2023-05-10 05:38] LABS: BLOOD UREA NITROGEN 14 MG/DL (9-23); CALCIUM LEVEL 9.1 MG/DL (8.3-10.6); CARBON DIOXIDE LEVEL 30 MMOL/L (20-31); CHLORIDE LEVEL 107 MMOL/L (98-107); CREATININE FOR GFR 0.34 MG/DL (0.55-1.30); GLOMERULAR FILTRATION RATE > 60.0 (>45); GLUCOSE, FASTING 112 MG/DL (74-106); POTASSIUM SERUM 3.6 MMOL/L (3.5-5.1); SODIUM LEVEL 140 MMOL/L (136-145)
[2023-05-10 06:03] LABS: EOSINOPHILS 2 % (0-3); LYMPHOCYTES 3 % (16-44); METAMYELOCYTES 2 % (0-0); MONOCYTES 9 % (0-5); MYELOCYTES 1 % (0-0); NEUTROPHILS 81 % (28-66); PLATELET ESTIMATE DECREASED (NORMAL)
[2023-05-10 06:04] LABS: ANISOCYTOSIS 2+
[2023-05-10] MEDS: LACOSAMIDE 50 MG TAB (VIMPAT) PO SCH ×2 (08:26→21:47)
[2023-05-10] MEDS: TOPIRAMATE (TopAMAX) 25 MG TAB PO SCH (08:26)
[2023-05-10] MEDS: dexAMETHasone 2 MG TAB PO SCH (08:26)
[2023-05-10] MEDS: ONDANSETRON 4MG ORAL DISINTEGRATING TAB PO SCH (08:27)
[2023-05-10] MEDS: NYSTATIN 100,000 UNITS/GM TOPICAL PWD 15GM TOP SCH ×2 (08:28→21:50)
[2023-05-10 09:34] LABS: LDH LACTATE DEHYDROGENASE 382 U/L (120-246)
[2023-05-10 09:35] LABS: BILIRUBIN,DIRECT 0.4 MG/DL (<0.4); BILIRUBIN,TOTAL 1.4 MG/DL (0.3-1.2)
[2023-05-10 12:07] LABS: HEMATOCRIT 25.3 % (36.0-47.0); HEMOGLOBIN 8.5 g/dl (12.0-15.5)
[2023-05-10] MEDS: ACETAMINOPHEN TAB 650MG DOSE (2X325MG) PO PRN (12:26)
[2023-05-10] MEDS: LEVEMIR (INSULIN DETEMIR) 1 UNITS/0.01ML SC SCH (21:00)
[2023-05-10] MEDS: SERTRALINE HCL 50 MG TAB PO SCH (21:48)
[2023-05-10] MEDS: guaiFENesin ER 600 MG TAB PO PRN (21:48)
[2023-05-10] MEDS: POTASSIUM CHLORIDE 10MEQ SR TABLET PO SCH (21:50)
[2023-05-10] MEDS: PERCOCET 5MG/325MG TAB PO PRN (21:50)
[2023-05-11] VITALS (9 sets, daily range): BP systolic 105–129; BP diastolic 65–78; TEMP 98.1–98.2; O2SAT 89–96
[2023-05-11] MEDS: SODIUM CHLORIDE 0.9% INJ 10 ML SYR IV SCH ×2 (05:26→18:00)
[2023-05-11 06:02] LABS: BASO % 0.4 % (0.0-1.0); EOS # 0.1 10^3/uL (0.0-0.5); EOS % 1.8 % (0.0-3.0); HEMATOCRIT 21.6 % (36.0-47.0); HEMOGLOBIN 7.3 g/dl (12.0-15.5); LYMPH # 0.2 10^3/uL (1.5-5.0); LYMPH % 4.3 % (24.0-44.0); MEAN CORPUSCULAR HEMOGLOBIN 34.4 pg (27.0-33.0); MEAN CORPUSCULAR HGB CONC 33.8 g/dl (32.0-36.5); MEAN CORPUSCULAR VOLUME 101.9 fl (80.0-96.0); MONO # 0.6 10^3/uL (0.0-0.8); MONO % 11.6 % (2.0-8.0); NEUTROPHILS # 3.9 10^3/uL (1.5-8.5); NEUTROPHILS % 78.9 % (36.0-66.0); RED BLOOD COUNT 2.12 10^6/uL (4.00-5.40); WHITE BLOOD COUNT 4.9 10^3/uL (4.0-10.0)
[2023-05-11 06:06] LABS: PLATELET COUNT, AUTOMATED 38 10^3/uL (150-450)
[2023-05-11 06:26] LABS: BLOOD UREA NITROGEN 20 MG/DL (9-23); CALCIUM LEVEL 8.9 MG/DL (8.3-10.6); CARBON DIOXIDE LEVEL 27 MMOL/L (20-31); CHLORIDE LEVEL 108 MMOL/L (98-107); CREATININE FOR GFR 0.32 MG/DL (0.55-1.30); GLOMERULAR FILTRATION RATE > 60.0 (>45); GLUCOSE, FASTING 123 MG/DL (74-106); POTASSIUM SERUM 3.7 MMOL/L (3.5-5.1); SODIUM LEVEL 141 MMOL/L (136-145)
[2023-05-11] MEDS: guaiFENesin ER 600 MG TAB PO SCH ×2 (08:55→21:38)
[2023-05-11] MEDS: LACOSAMIDE 50 MG TAB (VIMPAT) PO SCH ×2 (08:55→21:38)
[2023-05-11] MEDS: TOPIRAMATE (TopAMAX) 25 MG TAB PO SCH (08:55)
[2023-05-11] MEDS: dexAMETHasone 2 MG TAB PO SCH (08:56)
[2023-05-11] MEDS: ONDANSETRON 4MG ORAL DISINTEGRATING TAB PO SCH (08:56)
[2023-05-11] MEDS: NYSTATIN 100,000 UNITS/GM TOPICAL PWD 15GM TOP SCH ×2 (09:00→21:46)
[2023-05-11 12:11] LABS: HEMOGLOBIN 7.9 g/dl (12.0-15.5)
[2023-05-11] MEDS: ACETAMINOPHEN TAB 650MG DOSE (2X325MG) PO PRN (13:51)
[2023-05-11] MEDS: LEVEMIR (INSULIN DETEMIR) 1 UNITS/0.01ML SC SCH (21:00)
[2023-05-11] MEDS: SERTRALINE HCL 50 MG TAB PO SCH (21:39)
[2023-05-11] MEDS: POTASSIUM CHLORIDE 10MEQ SR TABLET PO SCH (21:39)
[2023-05-11] MEDS: PERCOCET 5MG/325MG TAB PO PRN (23:04)
[2023-05-12] VITALS (7 sets, daily range): BP systolic 88–142; BP diastolic 53–79; TEMP 97.2–98.2; O2SAT 94–98
[2023-05-12] MEDS: SODIUM CHLORIDE 0.9% INJ 10 ML SYR IV SCH ×2 (05:50→17:34)
[2023-05-12 06:05] LABS: BASO % 0.5 % (0.0-1.0); EOS # 0.1 10^3/uL (0.0-0.5); EOS % 2.1 % (0.0-3.0); LYMPH # 0.2 10^3/uL (1.5-5.0); LYMPH % 6.4 % (24.0-44.0); MONO # 0.4 10^3/uL (0.0-0.8); MONO % 11.8 % (2.0-8.0); NEUTROPHILS # 2.8 10^3/uL (1.5-8.5); NEUTROPHILS % 74.4 % (36.0-66.0); RED BLOOD COUNT 2.03 10^6/uL (4.00-5.40); WHITE BLOOD COUNT 3.7 10^3/uL (4.0-10.0)
[2023-05-12 06:24] LABS: BLOOD UREA NITROGEN 16 MG/DL (9-23); CALCIUM LEVEL 8.4 MG/DL (8.3-10.6); CARBON DIOXIDE LEVEL 28 MMOL/L (20-31); CHLORIDE LEVEL 107 MMOL/L (98-107); CREATININE FOR GFR 0.35 MG/DL (0.55-1.30); GLOMERULAR FILTRATION RATE > 60.0 (>45); GLUCOSE, FASTING 111 MG/DL (74-106); POTASSIUM SERUM 3.7 MMOL/L (3.5-5.1); SODIUM LEVEL 141 MMOL/L (136-145)
[2023-05-12 06:53] LABS: HEMATOCRIT 20.9 % (36.0-47.0); PLATELET COUNT, AUTOMATED 34 10^3/uL (150-450)
[2023-05-12 06:54] LABS: HEMOGLOBIN 6.9 g/dl (12.0-15.5)
[2023-05-12] MEDS: LACOSAMIDE 50 MG TAB (VIMPAT) PO SCH ×2 (11:31→22:22)
[2023-05-12] MEDS: TOPIRAMATE (TopAMAX) 25 MG TAB PO SCH (11:31)
[2023-05-12] MEDS: guaiFENesin ER 600 MG TAB PO SCH ×2 (11:31→22:22)
[2023-05-12] MEDS: dexAMETHasone 2 MG TAB PO SCH (11:31)
[2023-05-12] MEDS: ONDANSETRON 4MG ORAL DISINTEGRATING TAB PO SCH (11:31)
[2023-05-12] MEDS: NYSTATIN 100,000 UNITS/GM TOPICAL PWD 15GM TOP SCH ×2 (11:33→22:23)
[2023-05-12] MEDS: ACETAMINOPHEN TAB 650MG DOSE (2X325MG) PO PRN (14:18)
[2023-05-12] MEDS ORDERED: MIDODRINE 5 MG TAB PO ONE (17:20)
[2023-05-12] MEDS ORDERED: NS 1,000 ML IV ONE ×2 (17:20→18:00)
[2023-05-12 20:44] LABS: HEMATOCRIT 23.1 % (36.0-47.0); HEMOGLOBIN 7.7 g/dl (12.0-15.5)
[2023-05-12] MEDS: LEVEMIR (INSULIN DETEMIR) 1 UNITS/0.01ML SC SCH (21:00)
[2023-05-12] MEDS: POTASSIUM CHLORIDE 10MEQ SR TABLET PO SCH (22:22)
[2023-05-12] MEDS: SERTRALINE HCL 50 MG TAB PO SCH (22:23)
[2023-05-12] MEDS: PERCOCET 5MG/325MG TAB PO PRN (22:24)
[2023-05-13] VITALS (10 sets, daily range): BP systolic 97–122; BP diastolic 59–69; TEMP 97–99; O2SAT 93–97
[2023-05-13 06:05] LABS: BASO % 0.5 % (0.0-1.0); EOS # 0.1 10^3/uL (0.0-0.5); EOS % 2.3 % (0.0-3.0); HEMATOCRIT 23.3 % (36.0-47.0); HEMOGLOBIN 7.8 g/dl (12.0-15.5); LYMPH # 0.2 10^3/uL (1.5-5.0); LYMPH % 5.2 % (24.0-44.0); MEAN CORPUSCULAR HEMOGLOBIN 33.3 pg (27.0-33.0); MEAN CORPUSCULAR HGB CONC 33.5 g/dl (32.0-36.5); MEAN CORPUSCULAR VOLUME 99.6 fl (80.0-96.0); MONO # 0.6 10^3/uL (0.0-0.8); MONO % 13.6 % (2.0-8.0); NEUTROPHILS # 3.4 10^3/uL (1.5-8.5); NEUTROPHILS % 75.7 % (36.0-66.0); RED BLOOD COUNT 2.34 10^6/uL (4.00-5.40); WHITE BLOOD COUNT 4.4 10^3/uL (4.0-10.0)
[2023-05-13] MEDS: SODIUM CHLORIDE 0.9% INJ 10 ML SYR IV SCH ×2 (06:18→16:35)
[2023-05-13] MEDS: SODIUM CHLORIDE 0.9% INJ 10 ML SYR IV PRN ×3 (06:19→23:38)
[2023-05-13 06:20] LABS: BLOOD UREA NITROGEN 11 MG/DL (9-23); CALCIUM LEVEL 8.1 MG/DL (8.3-10.6); CARBON DIOXIDE LEVEL 27 MMOL/L (20-31); CHLORIDE LEVEL 110 MMOL/L (98-107); CREATININE FOR GFR 0.28 MG/DL (0.55-1.30); GLOMERULAR FILTRATION RATE > 60.0 (>45); GLUCOSE, FASTING 107 MG/DL (74-106); PLATELET COUNT, AUTOMATED 32 10^3/uL (150-450); POTASSIUM SERUM 3.4 MMOL/L (3.5-5.1); SODIUM LEVEL 141 MMOL/L (136-145)
[2023-05-13] MEDS ORDERED: POTASSIUM CHLORIDE 10MEQ SR TABLET PO ONE (08:00)
[2023-05-13] MEDS: LACOSAMIDE 50 MG TAB (VIMPAT) PO SCH ×2 (08:44→21:30)
[2023-05-13] MEDS: ONDANSETRON 4MG ORAL DISINTEGRATING TAB PO SCH (08:44)
[2023-05-13] MEDS: dexAMETHasone 2 MG TAB PO SCH (08:44)
[2023-05-13] MEDS: NYSTATIN 100,000 UNITS/GM TOPICAL PWD 15GM TOP SCH ×2 (08:44→21:31)
[2023-05-13] MEDS: TOPIRAMATE (TopAMAX) 25 MG TAB PO SCH (08:44)
[2023-05-13] MEDS: guaiFENesin ER 600 MG TAB PO SCH ×2 (08:44→21:30)
[2023-05-13] MEDS ORDERED: LIDOCAINE 1% MDV 20ML VIAL As Ordered ONE (10:01)
[2023-05-13] MEDS: MIDODRINE 5 MG TAB PO SCH ×2 (12:45→16:35)
[2023-05-13] MEDS: FUROSEMIDE 20 MG TAB PO SCH ×2 (12:45→17:00)
[2023-05-13 13:12] LABS: ALBUMIN 2.7 G/DL (3.2-5.2); BILIRUBIN,DIRECT 0.4 MG/DL (<0.4); BILIRUBIN,TOTAL 1.5 MG/DL (0.3-1.2); TOTAL PROTEIN 4.6 G/DL (5.7-8.2)
[2023-05-13 13:24] LABS: PROCALCITONIN 0.13 ng/ml
[2023-05-13] MEDS: PIPERACILLIN/TAZOBACTAM SOD 4.5 GM in D5W MINI-BAG PLUS 50 ML IV SCH ×2 (14:53→21:31)
[2023-05-13] MEDS: LEVEMIR (INSULIN DETEMIR) 1 UNITS/0.01ML SC SCH (21:00)
[2023-05-13] MEDS: POTASSIUM CHLORIDE 10MEQ SR TABLET PO SCH (21:30)
[2023-05-13] MEDS: SERTRALINE HCL 50 MG TAB PO SCH (21:30)
[2023-05-13] MEDS: PERCOCET 5MG/325MG TAB PO PRN (21:32)
[2023-05-14] VITALS (7 sets, daily range): BP systolic 88–119; BP diastolic 50–74; TEMP 97.5–98.4; O2SAT 93–95
[2023-05-14] MEDS: SODIUM CHLORIDE 0.9% INJ 10 ML SYR IV PRN ×4 (02:09→21:45)
[2023-05-14] MEDS: PIPERACILLIN/TAZOBACTAM SOD 4.5 GM in D5W MINI-BAG PLUS 50 ML IV SCH ×4 (02:09→21:44)
[2023-05-14] MEDS: SODIUM CHLORIDE 0.9% INJ 10 ML SYR IV SCH ×2 (05:21→17:40)
[2023-05-14 06:24] LABS: BASO % 0.8 % (0.0-1.0); EOS # 0.1 10^3/uL (0.0-0.5); EOS % 3.2 % (0.0-3.0); HEMATOCRIT 23.4 % (36.0-47.0); HEMOGLOBIN 7.9 g/dl (12.0-15.5); LYMPH # 0.3 10^3/uL (1.5-5.0); LYMPH % 7.7 % (24.0-44.0); MEAN CORPUSCULAR HEMOGLOBIN 33.9 pg (27.0-33.0); MEAN CORPUSCULAR HGB CONC 33.8 g/dl (32.0-36.5); MEAN CORPUSCULAR VOLUME 100.4 fl (80.0-96.0); MONO # 0.6 10^3/uL (0.0-0.8); MONO % 16.8 % (2.0-8.0); NEUTROPHILS # 2.6 10^3/uL (1.5-8.5); NEUTROPHILS % 68.3 % (36.0-66.0); RED BLOOD COUNT 2.33 10^6/uL (4.00-5.40); WHITE BLOOD COUNT 3.8 10^3/uL (4.0-10.0)
[2023-05-14 06:42] LABS: BLOOD UREA NITROGEN 14 MG/DL (9-23); CALCIUM LEVEL 9.2 MG/DL (8.3-10.6); CARBON DIOXIDE LEVEL 27 MMOL/L (20-31); CHLORIDE LEVEL 106 MMOL/L (98-107); CREATININE FOR GFR 0.38 MG/DL (0.55-1.30); GLOMERULAR FILTRATION RATE > 60.0 (>45); GLUCOSE, FASTING 114 MG/DL (74-106); POTASSIUM SERUM 3.3 MMOL/L (3.5-5.1); SODIUM LEVEL 141 MMOL/L (136-145)
[2023-05-14 06:52] LABS: PLATELET COUNT, AUTOMATED 55 10^3/uL (150-450)
[2023-05-14] MEDS ORDERED: POTASSIUM CHLORIDE 10MEQ SR TABLET PO ONE (07:15)
[2023-05-14 07:33] LABS: MAGNESIUM LEVEL 1.9 MG/DL (1.8-2.4)
[2023-05-14] MEDS: MIDODRINE 5 MG TAB PO SCH ×3 (08:00→15:18)
[2023-05-14] MEDS: FUROSEMIDE 20 MG TAB PO SCH ×2 (09:00→16:57)
[2023-05-14] MEDS: dexAMETHasone 2 MG TAB PO SCH (11:01)
[2023-05-14] MEDS: guaiFENesin ER 600 MG TAB PO SCH ×2 (11:01→21:44)
[2023-05-14] MEDS: LACOSAMIDE 50 MG TAB (VIMPAT) PO SCH ×2 (11:02→21:44)
[2023-05-14] MEDS: ONDANSETRON 4MG ORAL DISINTEGRATING TAB PO SCH (11:02)
[2023-05-14] MEDS: TOPIRAMATE (TopAMAX) 25 MG TAB PO SCH (11:02)
[2023-05-14] MEDS: NYSTATIN 100,000 UNITS/GM TOPICAL PWD 15GM TOP SCH ×2 (11:04→21:45)
[2023-05-14 12:11] LABS: ANTINUCLEAR ANTIBODIES DIRECT Negative (Negative); COPPER PLASMA 99 ug/dL (80-158)
[2023-05-14] MEDS ORDERED: FUROSEMIDE 10MG PER 1/2 TABLET PO ONE (17:05)
[2023-05-14] MEDS ORDERED: FUROSEMIDE 20 MG TAB PO ONE (17:20)
[2023-05-14] MEDS: LEVEMIR (INSULIN DETEMIR) 1 UNITS/0.01ML SC SCH (21:00)
[2023-05-14] MEDS: SERTRALINE HCL 50 MG TAB PO SCH (21:44)
[2023-05-14] MEDS: POTASSIUM CHLORIDE 10MEQ SR TABLET PO SCH (21:44)
[2023-05-14] MEDS: PERCOCET 5MG/325MG TAB PO PRN (21:46)
[2023-05-15] MEDS: SODIUM CHLORIDE 0.9% INJ 10 ML SYR IV PRN ×2 (00:41→02:32)
[2023-05-15] MEDS: PIPERACILLIN/TAZOBACTAM SOD 4.5 GM in D5W MINI-BAG PLUS 50 ML IV SCH ×2 (02:32→08:28)
[2023-05-15] MEDS: SODIUM CHLORIDE 0.9% INJ 10 ML SYR IV SCH ×2 (05:46→17:38)
[2023-05-15 06:00] VITALS: BP 122/76; TEMP 97.2; O2SAT 95
[2023-05-15 06:10] LABS: BASO % 0.7 % (0.0-1.0); EOS # 0.1 10^3/uL (0.0-0.5); EOS % 3.5 % (0.0-3.0); HEMATOCRIT 23.6 % (36.0-47.0); HEMOGLOBIN 7.7 g/dl (12.0-15.5); LYMPH # 0.3 10^3/uL (1.5-5.0); LYMPH % 10.2 % (24.0-44.0); MEAN CORPUSCULAR HEMOGLOBIN 33.8 pg (27.0-33.0); MEAN CORPUSCULAR HGB CONC 32.6 g/dl (32.0-36.5); MEAN CORPUSCULAR VOLUME 103.5 fl (80.0-96.0); MONO # 0.6 10^3/uL (0.0-0.8); MONO % 19.4 % (2.0-8.0); NEUTROPHILS # 1.8 10^3/uL (1.5-8.5); NEUTROPHILS % 61.6 % (36.0-66.0); RED BLOOD COUNT 2.28 10^6/uL (4.00-5.40); WHITE BLOOD COUNT 2.8 10^3/uL (4.0-10.0)
[2023-05-15 06:14] LABS: BLOOD UREA NITROGEN 13 MG/DL (9-23); CALCIUM LEVEL 9.2 MG/DL (8.3-10.6); CARBON DIOXIDE LEVEL 30 MMOL/L (20-31); CHLORIDE LEVEL 107 MMOL/L (98-107); CREATININE FOR GFR 0.39 MG/DL (0.55-1.30); GLOMERULAR FILTRATION RATE > 60.0 (>45); GLUCOSE, FASTING 107 MG/DL (74-106); MAGNESIUM LEVEL 1.9 MG/DL (1.8-2.4); POTASSIUM SERUM 3.4 MMOL/L (3.5-5.1); SODIUM LEVEL 144 MMOL/L (136-145)
[2023-05-15 06:26] LABS: PLATELET COUNT, AUTOMATED 51 10^3/uL (150-450)
[2023-05-15] MEDS ORDERED: POTASSIUM CHLORIDE 10MEQ SR TABLET PO ONE (08:00)
[2023-05-15] MEDS: dexAMETHasone 2 MG TAB PO SCH (08:28)
[2023-05-15] MEDS: MIDODRINE 5 MG TAB PO SCH ×3 (08:28→17:38)
[2023-05-15] MEDS: guaiFENesin ER 600 MG TAB PO SCH ×2 (08:28→21:13)
[2023-05-15] MEDS: ONDANSETRON 4MG ORAL DISINTEGRATING TAB PO SCH (08:28)
[2023-05-15] MEDS: LACOSAMIDE 50 MG TAB (VIMPAT) PO SCH ×2 (08:28→21:13)
[2023-05-15] MEDS: TOPIRAMATE (TopAMAX) 25 MG TAB PO SCH (08:28)
[2023-05-15] MEDS: NYSTATIN 100,000 UNITS/GM TOPICAL PWD 15GM TOP SCH ×2 (08:30→21:14)
[2023-05-15] MEDS: FUROSEMIDE 10MG PER 1/2 TABLET PO SCH ×2 (09:30→17:39)
[2023-05-15] MEDS: AUGMENTIN 875 MG TAB PO SCH ×2 (11:17→21:13)
[2023-05-15] MEDS: PERCOCET 5MG/325MG TAB PO PRN ×2 (11:44→21:15)
[2023-05-15 14:00] VITALS: BP 109/73; TEMP 97.7; O2SAT 94
[2023-05-15 21:00] VITALS: BP 92/58; TEMP 98.4; O2SAT 94
[2023-05-15 21:06] VITALS: BP 100/60
[2023-05-15] MEDS: POTASSIUM CHLORIDE 10MEQ SR TABLET PO SCH (21:13)
[2023-05-15] MEDS: SERTRALINE HCL 50 MG TAB PO SCH (21:13)
[2023-05-15] MEDS: LEVEMIR (INSULIN DETEMIR) 1 UNITS/0.01ML SC SCH (21:20)
[2023-05-16 05:49] VITALS: BP 131/82; TEMP 98.1; O2SAT 94
[2023-05-16] MEDS: SODIUM CHLORIDE 0.9% INJ 10 ML SYR IV SCH ×2 (06:04→17:37)
[2023-05-16 06:24] LABS: BASO % 0.7 % (0.0-1.0); EOS # 0.1 10^3/uL (0.0-0.5); HEMATOCRIT 24.3 % (36.0-47.0); HEMOGLOBIN 8.2 g/dl (12.0-15.5); LYMPH # 0.3 10^3/uL (1.5-5.0); LYMPH % 8.2 % (24.0-44.0); MEAN CORPUSCULAR HEMOGLOBIN 34.6 pg (27.0-33.0); MEAN CORPUSCULAR HGB CONC 33.7 g/dl (32.0-36.5); MEAN CORPUSCULAR VOLUME 102.5 fl (80.0-96.0); MONO # 0.8 10^3/uL (0.0-0.8); MONO % 18.7 % (2.0-8.0); NEUTROPHILS # 2.6 10^3/uL (1.5-8.5); NEUTROPHILS % 65.4 % (36.0-66.0); PLATELET COUNT, AUTOMATED 58 10^3/uL (150-450); RED BLOOD COUNT 2.37 10^6/uL (4.00-5.40)
[2023-05-16 06:43] LABS: BLOOD UREA NITROGEN 17 MG/DL (9-23); CALCIUM LEVEL 8.6 MG/DL (8.3-10.6); CARBON DIOXIDE LEVEL 30 MMOL/L (20-31); CHLORIDE LEVEL 108 MMOL/L (98-107); CREATININE FOR GFR 0.32 MG/DL (0.55-1.30); GLOMERULAR FILTRATION RATE > 60.0 (>45); GLUCOSE, FASTING 124 MG/DL (74-106); POTASSIUM SERUM 3.1 MMOL/L (3.5-5.1); SODIUM LEVEL 144 MMOL/L (136-145)
[2023-05-16] MEDS ORDERED: KCL 10MEQ/100ML SWI (KRUN) 10 MEQ in IV 1 EA IV ONE (07:15)
[2023-05-16] MEDS: MIDODRINE 5 MG TAB PO SCH ×3 (08:42→17:37)
[2023-05-16] MEDS: AUGMENTIN 875 MG TAB PO SCH ×2 (08:42→20:55)
[2023-05-16] MEDS: NYSTATIN 100,000 UNITS/GM TOPICAL PWD 15GM TOP SCH ×2 (08:43→21:08)
[2023-05-16] MEDS: guaiFENesin ER 600 MG TAB PO SCH ×2 (08:43→20:56)
[2023-05-16] MEDS: ONDANSETRON 4MG ORAL DISINTEGRATING TAB PO SCH (08:43)
[2023-05-16] MEDS: TOPIRAMATE (TopAMAX) 25 MG TAB PO SCH (08:43)
[2023-05-16] MEDS: LACOSAMIDE 50 MG TAB (VIMPAT) PO SCH ×2 (08:43→20:55)
[2023-05-16] MEDS: dexAMETHasone 2 MG TAB PO SCH (08:43)
[2023-05-16] MEDS ORDERED: POTASSIUM CHLORIDE 10MEQ SR TABLET PO SCH (09:00)
[2023-05-16] MEDS ORDERED: FUROSEMIDE 20 MG TAB PO SCH (09:00)
[2023-05-16 09:50] VITALS: BP 127/85; O2SAT 91
[2023-05-16] MEDS: SODIUM CHLORIDE 0.9% INJ 10 ML SYR IV PRN (12:42)
[2023-05-16 14:00] VITALS: BP 102/68; TEMP 97.9; O2SAT 93
[2023-05-16] MEDS: ACETAMINOPHEN TAB 650MG DOSE (2X325MG) PO PRN (16:09)
[2023-05-16 16:33] LABS: BLOOD UREA NITROGEN 16 MG/DL (9-23); CALCIUM LEVEL 8.5 MG/DL (8.3-10.6); CARBON DIOXIDE LEVEL 30 MMOL/L (20-31); CHLORIDE LEVEL 108 MMOL/L (98-107); CREATININE FOR GFR 0.32 MG/DL (0.55-1.30); GLOMERULAR FILTRATION RATE > 60.0 (>45); GLUCOSE, FASTING 176 MG/DL (74-106); MAGNESIUM LEVEL 1.9 MG/DL (1.8-2.4); POTASSIUM SERUM 3.6 MMOL/L (3.5-5.1); SODIUM LEVEL 143 MMOL/L (136-145)
[2023-05-16] MEDS: SERTRALINE HCL 50 MG TAB PO SCH (20:55)
[2023-05-16] MEDS: LEVEMIR (INSULIN DETEMIR) 1 UNITS/0.01ML SC SCH (20:58)
[2023-05-16] MEDS: PERCOCET 5MG/325MG TAB PO PRN (21:01)
[2023-05-16 22:00] VITALS: BP 112/78; TEMP 98.1; O2SAT 95
[2023-05-17] VITALS (7 sets, daily range): BP systolic 102–137; BP diastolic 53–85; TEMP 97.9–98.4; O2SAT 90–92
[2023-05-17] MEDS: SODIUM CHLORIDE 0.9% INJ 10 ML SYR IV SCH ×2 (05:39→17:20)
[2023-05-17 06:08] LABS: BASO % 0.8 % (0.0-1.0); EOS # 0.1 10^3/uL (0.0-0.5); EOS % 2.5 % (0.0-3.0); HEMATOCRIT 24.2 % (36.0-47.0); HEMOGLOBIN 7.9 g/dl (12.0-15.5); LYMPH # 0.3 10^3/uL (1.5-5.0); LYMPH % 9.3 % (24.0-44.0); MEAN CORPUSCULAR HEMOGLOBIN 34.3 pg (27.0-33.0); MEAN CORPUSCULAR HGB CONC 32.6 g/dl (32.0-36.5); MEAN CORPUSCULAR VOLUME 105.2 fl (80.0-96.0); MONO # 0.7 10^3/uL (0.0-0.8); MONO % 20.1 % (2.0-8.0); NEUTROPHILS # 2.3 10^3/uL (1.5-8.5); WHITE BLOOD COUNT 3.6 10^3/uL (4.0-10.0)
[2023-05-17 06:26] LABS: PLATELET COUNT, AUTOMATED 61 10^3/uL (150-450)
[2023-05-17 06:28] LABS: BLOOD UREA NITROGEN 16 MG/DL (9-23); CALCIUM LEVEL 9.4 MG/DL (8.3-10.6); CARBON DIOXIDE LEVEL 30 MMOL/L (20-31); CHLORIDE LEVEL 106 MMOL/L (98-107); CREATININE FOR GFR 0.34 MG/DL (0.55-1.30); GLOMERULAR FILTRATION RATE > 60.0 (>45); GLUCOSE, FASTING 116 MG/DL (74-106); MAGNESIUM LEVEL 1.9 MG/DL (1.8-2.4); POTASSIUM SERUM 3.3 MMOL/L (3.5-5.1); SODIUM LEVEL 143 MMOL/L (136-145)
[2023-05-17] MEDS: AUGMENTIN 875 MG TAB PO SCH ×4 (09:00→21:09)
[2023-05-17] MEDS: guaiFENesin ER 600 MG TAB PO SCH ×3 (09:00→21:11)
[2023-05-17] MEDS ORDERED: FUROSEMIDE 20 MG TAB PO SCH (09:00)
[2023-05-17] MEDS: LACOSAMIDE 50 MG TAB (VIMPAT) PO SCH ×4 (09:00→21:10)
[2023-05-17] MEDS: MIDODRINE 5 MG TAB PO SCH ×3 (09:10→17:20)
[2023-05-17] MEDS: dexAMETHasone 2 MG TAB PO SCH (10:01)
[2023-05-17] MEDS: TOPIRAMATE (TopAMAX) 25 MG TAB PO SCH (10:01)
[2023-05-17] MEDS: POTASSIUM CHLORIDE 10MEQ SR TABLET PO SCH (10:06)
[2023-05-17] MEDS: ONDANSETRON 4MG ORAL DISINTEGRATING TAB PO SCH (10:06)
[2023-05-17] MEDS: ACETAMINOPHEN TAB 650MG DOSE (2X325MG) PO PRN ×2 (10:08→15:14)
[2023-05-17] MEDS: NYSTATIN 100,000 UNITS/GM TOPICAL PWD 15GM TOP SCH ×2 (10:09→21:18)
[2023-05-17] MEDS: LEVEMIR (INSULIN DETEMIR) 1 UNITS/0.01ML SC SCH (21:00)
[2023-05-17] MEDS: SERTRALINE HCL 50 MG TAB PO SCH (21:10)
[2023-05-18] MEDS: SODIUM CHLORIDE 0.9% INJ 10 ML SYR IV SCH ×2 (05:36→17:19)
[2023-05-18 05:42] VITALS: BP 149/80; TEMP 98.8; O2SAT 93
[2023-05-18 06:06] LABS: BASO % 0.8 % (0.0-1.0); EOS # 0.1 10^3/uL (0.0-0.5); EOS % 2.2 % (0.0-3.0); HEMATOCRIT 24.8 % (36.0-47.0); HEMOGLOBIN 8.1 g/dl (12.0-15.5); LYMPH # 0.4 10^3/uL (1.5-5.0); LYMPH % 9.6 % (24.0-44.0); MEAN CORPUSCULAR HEMOGLOBIN 34.9 pg (27.0-33.0); MEAN CORPUSCULAR HGB CONC 32.7 g/dl (32.0-36.5); MEAN CORPUSCULAR VOLUME 106.9 fl (80.0-96.0); MONO # 0.6 10^3/uL (0.0-0.8); NEUTROPHILS # 2.4 10^3/uL (1.5-8.5); NEUTROPHILS % 66.3 % (36.0-66.0); RED BLOOD COUNT 2.32 10^6/uL (4.00-5.40); WHITE BLOOD COUNT 3.6 10^3/uL (4.0-10.0)
[2023-05-18 06:11] LABS: BLOOD UREA NITROGEN 16 MG/DL (9-23); CALCIUM LEVEL 9.5 MG/DL (8.3-10.6); CARBON DIOXIDE LEVEL 30 MMOL/L (20-31); CHLORIDE LEVEL 107 MMOL/L (98-107); CREATININE FOR GFR 0.36 MG/DL (0.55-1.30); GLOMERULAR FILTRATION RATE > 60.0 (>45); GLUCOSE, FASTING 120 MG/DL (74-106); MAGNESIUM LEVEL 2.1 MG/DL (1.8-2.4); POTASSIUM SERUM 3.3 MMOL/L (3.5-5.1); SODIUM LEVEL 144 MMOL/L (136-145)
[2023-05-18 06:13] LABS: PLATELET COUNT, AUTOMATED 61 10^3/uL (150-450)
[2023-05-18] MEDS ORDERED: POTASSIUM CHLORIDE 10MEQ SR TABLET PO ONE (07:05)
[2023-05-18] MEDS: guaiFENesin ER 600 MG TAB PO SCH ×2 (09:00→22:01)
[2023-05-18] MEDS: dexAMETHasone 2 MG TAB PO SCH (09:40)
[2023-05-18] MEDS: LACOSAMIDE 50 MG TAB (VIMPAT) PO SCH ×2 (09:40→22:03)
[2023-05-18] MEDS: MIDODRINE 5 MG TAB PO SCH ×3 (09:41→17:19)
[2023-05-18] MEDS: POTASSIUM CHLORIDE 10MEQ SR TABLET PO SCH (09:43)
[2023-05-18 09:44] VITALS: BP 118/82
[2023-05-18] MEDS: NYSTATIN 100,000 UNITS/GM TOPICAL PWD 15GM TOP SCH ×2 (09:44→22:03)
[2023-05-18] MEDS: ONDANSETRON 4MG ORAL DISINTEGRATING TAB PO SCH (11:40)
[2023-05-18] MEDS: TOPIRAMATE (TopAMAX) 25 MG TAB PO SCH (11:41)
[2023-05-18] MEDS: AUGMENTIN 875 MG TAB PO SCH ×2 (11:41→22:01)
[2023-05-18 14:00] VITALS: BP 129/81; TEMP 98.4; O2SAT 90
[2023-05-18] MEDS ORDERED: PILL CUTTER 1 EACH XX ONE (16:22)
[2023-05-18 21:31] VITALS: BP 119/71; TEMP 99.1; O2SAT 87
[2023-05-18] MEDS: PERCOCET 5MG/325MG TAB PO PRN (22:02)
[2023-05-18] MEDS: SERTRALINE HCL 50 MG TAB PO SCH (22:03)
[2023-05-18] MEDS: LEVEMIR (INSULIN DETEMIR) 1 UNITS/0.01ML SC SCH (22:14)
[2023-05-19 06:00] VITALS: BP 140/79; TEMP 98.4; O2SAT 88
[2023-05-19 06:33] LABS: BASO # 0.1 10^3/uL (0.0-0.2); BASO % 0.8 % (0.0-1.0); EOS # 0.1 10^3/uL (0.0-0.5); EOS % 1.4 % (0.0-3.0); HEMATOCRIT 27.2 % (36.0-47.0); HEMOGLOBIN 8.7 g/dl (12.0-15.5); LYMPH # 0.5 10^3/uL (1.5-5.0); LYMPH % 7.5 % (24.0-44.0); MEAN CORPUSCULAR HEMOGLOBIN 34.4 pg (27.0-33.0); MEAN CORPUSCULAR VOLUME 107.5 fl (80.0-96.0); MONO # 1.1 10^3/uL (0.0-0.8); MONO % 16.9 % (2.0-8.0); NEUTROPHILS # 4.7 10^3/uL (1.5-8.5); NEUTROPHILS % 71.9 % (36.0-66.0); RED BLOOD COUNT 2.53 10^6/uL (4.00-5.40); WHITE BLOOD COUNT 6.5 10^3/uL (4.0-10.0)
[2023-05-19] MEDS: SODIUM CHLORIDE 0.9% INJ 10 ML SYR IV SCH ×2 (06:36→17:52)
[2023-05-19 06:40] LABS: BLOOD UREA NITROGEN 16 MG/DL (9-23); CALCIUM LEVEL 9.1 MG/DL (8.3-10.6); CARBON DIOXIDE LEVEL 28 MMOL/L (20-31); CHLORIDE LEVEL 111 MMOL/L (98-107); CREATININE FOR GFR 0.34 MG/DL (0.55-1.30); GLOMERULAR FILTRATION RATE > 60.0 (>45); GLUCOSE, FASTING 132 MG/DL (74-106); MAGNESIUM LEVEL 2.2 MG/DL (1.8-2.4); POTASSIUM SERUM 3.5 MMOL/L (3.5-5.1); SODIUM LEVEL 146 MMOL/L (136-145)
[2023-05-19 06:42] LABS: PLATELET COUNT, AUTOMATED 81 10^3/uL (150-450)
[2023-05-19] MEDS: dexAMETHasone 1 MG TAB PO SCH (09:42)
[2023-05-19] MEDS: ONDANSETRON 4MG ORAL DISINTEGRATING TAB PO SCH (09:42)
[2023-05-19] MEDS: POTASSIUM CHLORIDE 10MEQ SR TABLET PO SCH (09:42)
[2023-05-19] MEDS: MIDODRINE 5 MG TAB PO SCH (09:42)
[2023-05-19] MEDS: TOPIRAMATE (TopAMAX) 25 MG TAB PO SCH (09:42)
[2023-05-19] MEDS: LACOSAMIDE 50 MG TAB (VIMPAT) PO SCH ×2 (09:42→21:36)
[2023-05-19] MEDS: guaiFENesin ER 600 MG TAB PO SCH ×2 (09:42→21:36)
[2023-05-19] MEDS: AUGMENTIN 875 MG TAB PO SCH ×2 (09:42→21:36)
[2023-05-19] MEDS: NYSTATIN 100,000 UNITS/GM TOPICAL PWD 15GM TOP SCH ×2 (09:43→21:37)
[2023-05-19] MEDS: ACETAMINOPHEN TAB 650MG DOSE (2X325MG) PO PRN (13:27)
[2023-05-19 14:00] VITALS: BP 130/76; TEMP 97.3; O2SAT 92
[2023-05-19 19:47] VITALS: BP 146/89; TEMP 99.1; O2SAT 90
[2023-05-19] MEDS: LEVEMIR (INSULIN DETEMIR) 1 UNITS/0.01ML SC SCH (21:00)
[2023-05-19] MEDS: SERTRALINE HCL 50 MG TAB PO SCH (21:36)
[2023-05-19] MEDS: PERCOCET 5MG/325MG TAB PO PRN (21:37)
[2023-05-20] MEDS: SODIUM CHLORIDE 0.9% INJ 10 ML SYR IV SCH ×2 (05:53→18:25)
[2023-05-20 06:13] VITALS: BP 145/88; TEMP 98.8; O2SAT 93
[2023-05-20 06:24] LABS: BASO % 0.5 % (0.0-1.0); EOS # 0.1 10^3/uL (0.0-0.5); EOS % 1.3 % (0.0-3.0); HEMATOCRIT 26.4 % (36.0-47.0); HEMOGLOBIN 8.5 g/dl (12.0-15.5); LYMPH # 0.4 10^3/uL (1.5-5.0); LYMPH % 4.6 % (24.0-44.0); MEAN CORPUSCULAR HEMOGLOBIN 35.3 pg (27.0-33.0); MEAN CORPUSCULAR HGB CONC 32.2 g/dl (32.0-36.5); MEAN CORPUSCULAR VOLUME 109.5 fl (80.0-96.0); MONO % 12.4 % (2.0-8.0); NEUTROPHILS # 6.3 10^3/uL (1.5-8.5); NEUTROPHILS % 80.2 % (36.0-66.0); RED BLOOD COUNT 2.41 10^6/uL (4.00-5.40); WHITE BLOOD COUNT 7.8 10^3/uL (4.0-10.0)
[2023-05-20 06:25] LABS: PLATELET COUNT, AUTOMATED 68 10^3/uL (150-450)
[2023-05-20 06:38] LABS: BLOOD UREA NITROGEN 15 MG/DL (9-23); CALCIUM LEVEL 8.6 MG/DL (8.3-10.6); CARBON DIOXIDE LEVEL 25 MMOL/L (20-31); CHLORIDE LEVEL 109 MMOL/L (98-107); CREATININE FOR GFR 0.31 MG/DL (0.55-1.30); GLOMERULAR FILTRATION RATE > 60.0 (>45); GLUCOSE, FASTING 122 MG/DL (74-106); MAGNESIUM LEVEL 1.9 MG/DL (1.8-2.4); POTASSIUM SERUM 3.4 MMOL/L (3.5-5.1); SODIUM LEVEL 144 MMOL/L (136-145)
[2023-05-20 06:59] LABS: CORTISOL AM 26.7 UG/DL (4.3-22.4)
[2023-05-20 07:03] LABS: THYROID STIMULATING HORMONE 1.675 uIU/ML (0.55-4.78)
[2023-05-20 07:14] LABS: OSMOLALITY SERUM 300 MOSM/KG (280-301)
[2023-05-20] MEDS: LACOSAMIDE 50 MG TAB (VIMPAT) PO SCH ×2 (08:42→21:45)
[2023-05-20] MEDS: ONDANSETRON 4MG ORAL DISINTEGRATING TAB PO SCH (08:42)
[2023-05-20] MEDS: guaiFENesin ER 600 MG TAB PO SCH ×2 (08:42→21:45)
[2023-05-20] MEDS: dexAMETHasone 1 MG TAB PO SCH (08:42)
[2023-05-20] MEDS: TOPIRAMATE (TopAMAX) 25 MG TAB PO SCH (08:42)
[2023-05-20] MEDS: NYSTATIN 100,000 UNITS/GM TOPICAL PWD 15GM TOP SCH ×2 (08:43→21:46)
[2023-05-20] MEDS: AUGMENTIN 875 MG TAB PO SCH ×2 (08:43→21:45)
[2023-05-20] MEDS: POTASSIUM CHLORIDE 10MEQ SR TABLET PO SCH (08:43)
[2023-05-20] MEDS ORDERED: POTASSIUM CHLORIDE 10% LIQ 20MEQ/15ML UDC PO ONE (12:00)
[2023-05-20] MEDS: ACETAMINOPHEN TAB 650MG DOSE (2X325MG) PO PRN ×2 (13:32→21:46)
[2023-05-20 14:00] VITALS: BP 141/86; TEMP 98.1; O2SAT 93
[2023-05-20 20:30] VITALS: BP 123/74; TEMP 101.4; O2SAT 89
[2023-05-20] MEDS: LEVEMIR (INSULIN DETEMIR) 1 UNITS/0.01ML SC SCH (21:00)
[2023-05-20] MEDS: SERTRALINE HCL 50 MG TAB PO SCH (21:45)
[2023-05-20] MEDS ORDERED: NS 500 ML IV ONE (22:10)
[2023-05-20 22:30] LABS: VENOUS BASE EXCESS 2.1 (-2.0-2.0); VENOUS HCO3 25.8 MMOL/L (23.0-27.0); VENOUS O2 SATURATION 88.5 % (60.0-80.0); VENOUS PARTIAL PRESSURE CO2 36.2 mmHg (38.0-50.0); VENOUS PARTIAL PRESSURE O2 54.1 mmHg (30.0-50.0); VENOUS STANDARD HCO3 26.2 MMOL/L; VENOUS TOTAL CO2 26.9 MMOL/L (24.0-28.0)
[2023-05-21 00:30] VITALS: TEMP 100.4
[2023-05-21] MEDS: SODIUM CHLORIDE 0.9% INJ 10 ML SYR IV PRN (00:34)
[2023-05-21 05:14] VITALS: BP 112/72; TEMP 99.4; O2SAT 91
[2023-05-21] MEDS: SODIUM CHLORIDE 0.9% INJ 10 ML SYR IV SCH ×2 (05:32→18:25)
[2023-05-21 06:12] LABS: HEMATOCRIT 24.5 % (36.0-47.0); HEMOGLOBIN 7.8 g/dl (12.0-15.5); MEAN CORPUSCULAR HEMOGLOBIN 35.3 pg (27.0-33.0); MEAN CORPUSCULAR HGB CONC 31.8 g/dl (32.0-36.5); MEAN CORPUSCULAR VOLUME 110.9 fl (80.0-96.0); RED BLOOD COUNT 2.21 10^6/uL (4.00-5.40); WHITE BLOOD COUNT 7.5 10^3/uL (4.0-10.0)
[2023-05-21 06:27] LABS: PLATELET COUNT, AUTOMATED 69 10^3/uL (150-450)
[2023-05-21 06:38] LABS: BLOOD UREA NITROGEN 13 MG/DL (9-23); CALCIUM LEVEL 9.1 MG/DL (8.3-10.6); CARBON DIOXIDE LEVEL 26 MMOL/L (20-31); CHLORIDE LEVEL 110 MMOL/L (98-107); CREATININE FOR GFR 0.32 MG/DL (0.55-1.30); GLOMERULAR FILTRATION RATE > 60.0 (>45); GLUCOSE, FASTING 118 MG/DL (74-106); MAGNESIUM LEVEL 1.8 MG/DL (1.8-2.4); POTASSIUM SERUM 3.4 MMOL/L (3.5-5.1); SODIUM LEVEL 144 MMOL/L (136-145)
[2023-05-21 07:18] LABS: ATYPICAL LYMPH 1 % (0-5); BASOPHILS 1 % (0-1); EOSINOPHILS 2 % (0-3); LYMPHOCYTES 7 % (16-44); MONOCYTES 14 % (0-5); NEUTROPHILS 75 % (28-66); PLATELET ESTIMATE DECREASED (NORMAL); POLYCHROMASIA 2+
[2023-05-21 07:20] LABS: ANISOCYTOSIS 2+; POIKILOCYTOSIS 1+
[2023-05-21] MEDS: ONDANSETRON 4MG ORAL DISINTEGRATING TAB PO SCH (09:36)
[2023-05-21] MEDS: LACOSAMIDE 50 MG TAB (VIMPAT) PO SCH ×2 (09:36→21:46)
[2023-05-21] MEDS: guaiFENesin ER 600 MG TAB PO SCH ×2 (09:36→21:46)
[2023-05-21] MEDS: POTASSIUM CHLORIDE 10MEQ SR TABLET PO SCH (09:36)
[2023-05-21] MEDS: TOPIRAMATE (TopAMAX) 25 MG TAB PO SCH (09:36)
[2023-05-21] MEDS: dexAMETHasone 1 MG TAB PO SCH (09:36)
[2023-05-21] MEDS: AUGMENTIN 875 MG TAB PO SCH ×2 (09:36→21:46)
[2023-05-21] MEDS: NYSTATIN 100,000 UNITS/GM TOPICAL PWD 15GM TOP SCH ×2 (09:36→21:47)
[2023-05-21] MEDS: ACETAMINOPHEN TAB 650MG DOSE (2X325MG) PO PRN (13:26)
[2023-05-21 14:00] VITALS: BP 112/72; TEMP 99.6; O2SAT 92
[2023-05-21] MEDS: LEVEMIR (INSULIN DETEMIR) 1 UNITS/0.01ML SC SCH (21:00)
[2023-05-21] MEDS: SERTRALINE HCL 50 MG TAB PO SCH (21:46)
[2023-05-21] MEDS: PERCOCET 5MG/325MG TAB PO PRN (21:48)
[2023-05-21 22:00] VITALS: BP 110/69; TEMP 97.7; O2SAT 94
[2023-05-22] MEDS: SODIUM CHLORIDE 0.9% INJ 10 ML SYR IV SCH ×2 (05:41→18:00)
[2023-05-22 06:00] VITALS: BP 104/61; TEMP 97.7; O2SAT 96
[2023-05-22 06:04] LABS: HEMATOCRIT 25.7 % (36.0-47.0); HEMOGLOBIN 8.1 g/dl (12.0-15.5); MEAN CORPUSCULAR HEMOGLOBIN 34.8 pg (27.0-33.0); MEAN CORPUSCULAR HGB CONC 31.5 g/dl (32.0-36.5); MEAN CORPUSCULAR VOLUME 110.3 fl (80.0-96.0); RED BLOOD COUNT 2.33 10^6/uL (4.00-5.40); WHITE BLOOD COUNT 8.5 10^3/uL (4.0-10.0)
[2023-05-22 06:06] LABS: PLATELET COUNT, AUTOMATED 72 10^3/uL (150-450)
[2023-05-22 06:13] LABS: BLOOD UREA NITROGEN 13 MG/DL (9-23); CALCIUM LEVEL 8.6 MG/DL (8.3-10.6); CARBON DIOXIDE LEVEL 27 MMOL/L (20-31); CHLORIDE LEVEL 108 MMOL/L (98-107); CREATININE FOR GFR 0.34 MG/DL (0.55-1.30); GLOMERULAR FILTRATION RATE > 60.0 (>45); GLUCOSE, FASTING 105 MG/DL (74-106); MAGNESIUM LEVEL 1.8 MG/DL (1.8-2.4); POTASSIUM SERUM 3.1 MMOL/L (3.5-5.1); SODIUM LEVEL 142 MMOL/L (136-145)
[2023-05-22 06:44] LABS: BASOPHILS 1 % (0-1); LYMPHOCYTES 3 % (16-44); MONOCYTES 6 % (0-5); MYELOCYTES 2 % (0-0); NEUTROPHILS 88 % (28-66)
[2023-05-22 06:45] LABS: ANISOCYTOSIS 4+; HYPOCHROMASIA 1+; PLATELET ESTIMATE DECREASED (NORMAL)
[2023-05-22] MEDS ORDERED: METOPROLOL TART 25 MG TABLET PO ONE (10:10)
[2023-05-22] MEDS: LACTOBACILLUS ACIDOPHILUS CAP (BACID) PO SCH ×3 (10:48→18:00)
[2023-05-22] MEDS: NYSTATIN 100,000 UNITS/GM TOPICAL PWD 15GM TOP SCH ×2 (10:52→22:36)
[2023-05-22 10:53] VITALS: BP 104/78
[2023-05-22] MEDS: LACOSAMIDE 50 MG TAB (VIMPAT) PO SCH ×2 (10:53→22:38)
[2023-05-22] MEDS: guaiFENesin ER 600 MG TAB PO SCH ×3 (10:53→22:37)
[2023-05-22] MEDS: TOPIRAMATE (TopAMAX) 25 MG TAB PO SCH (10:53)
[2023-05-22] MEDS: AUGMENTIN 875 MG TAB PO SCH ×2 (10:53→22:39)
[2023-05-22] MEDS: dexAMETHasone 1 MG TAB PO SCH (10:54)
[2023-05-22] MEDS: POTASSIUM CHLORIDE 10MEQ SR TABLET PO SCH (10:54)
[2023-05-22] MEDS: ONDANSETRON 4MG ORAL DISINTEGRATING TAB PO SCH (10:54)
[2023-05-22] MEDS ORDERED: MAG SULF 1GM/100ML (MAG RUN) 1 GM in IV 1 EA IV ONE (11:00)
[2023-05-22] MEDS: KCL 10MEQ/100ML SWI (KRUN) 10 MEQ in IV 1 EA IV SCH ×2 (12:42→13:36)
[2023-05-22 14:50] VITALS: BP 85/45; TEMP 97.7; O2SAT 92
[2023-05-22 15:03] VITALS: BP 82/50
[2023-05-22] MEDS ORDERED: MIDODRINE 2.5 MG TAB PO ONE (15:10)
[2023-05-22] MEDS: ACETAMINOPHEN TAB 650MG DOSE (2X325MG) PO PRN (15:12)
[2023-05-22 17:00] VITALS: BP_SYST 62
[2023-05-22] MEDS ORDERED: NS 500 ML IV ONE ×2 (17:00→17:05)
[2023-05-22] MEDS ORDERED: METOPROLOL TART 25 MG TABLET PO SCH (21:00)
[2023-05-22] MEDS: SERTRALINE HCL 50 MG TAB PO SCH (21:00)
[2023-05-22] MEDS: LEVEMIR (INSULIN DETEMIR) 1 UNITS/0.01ML SC SCH (21:00)
[2023-05-22] MEDS: PERCOCET 5MG/325MG TAB PO PRN (22:38)
[2023-05-22 22:41] VITALS: BP 121/74; O2SAT 94
[2023-05-22 23:10] LABS: ANTI PARVO VIRUS LEVEL IGG 3.7 index (0.0-0.8); ANTI PARVO VIRUS LEVEL IgM 0.1 index (0.0-0.8); CMV QUANT DNA PCR (PLASMA) Negative (Negative); CYTOMEGALOVIRUS IgG ANTIBODY <0.60 U/mL (0.00-0.59); CYTOMEGALOVIRUS IgM ANTIBODY <30.0 AU/mL (0.0-29.9); PARVOVIRUS B19 QUANT PCR Negative copies/mL (Negative)
[2023-05-23 05:06] VITALS: BP 86/52; TEMP 98.2; O2SAT 93
[2023-05-23] MEDS: SODIUM CHLORIDE 0.9% INJ 10 ML SYR IV SCH ×2 (05:29→17:47)
[2023-05-23] MEDS ORDERED: MIDODRINE 5 MG TAB PO SCH (06:00)
[2023-05-23 06:10] LABS: HEMATOCRIT 24.8 % (36.0-47.0); HEMOGLOBIN 7.8 g/dl (12.0-15.5); MEAN CORPUSCULAR HEMOGLOBIN 34.7 pg (27.0-33.0); MEAN CORPUSCULAR HGB CONC 31.5 g/dl (32.0-36.5); MEAN CORPUSCULAR VOLUME 110.2 fl (80.0-96.0); RED BLOOD COUNT 2.25 10^6/uL (4.00-5.40); WHITE BLOOD COUNT 7.7 10^3/uL (4.0-10.0)
[2023-05-23 06:14] LABS: PLATELET COUNT, AUTOMATED 75 10^3/uL (150-450)
[2023-05-23 06:30] LABS: BLOOD UREA NITROGEN 11 MG/DL (9-23); CALCIUM LEVEL 8.8 MG/DL (8.3-10.6); CARBON DIOXIDE LEVEL 26 MMOL/L (20-31); CHLORIDE LEVEL 106 MMOL/L (98-107); CREATININE FOR GFR 0.29 MG/DL (0.55-1.30); GLOMERULAR FILTRATION RATE > 60.0 (>45); GLUCOSE, FASTING 105 MG/DL (74-106); MAGNESIUM LEVEL 1.8 MG/DL (1.8-2.4); POTASSIUM SERUM 2.8 MMOL/L (3.5-5.1); SODIUM LEVEL 140 MMOL/L (136-145)
[2023-05-23 07:52] LABS: EOSINOPHILS 1 % (0-3); LYMPHOCYTES 7 % (16-44); MONOCYTES 16 % (0-5); NEUTROPHILS 76 % (28-66); PLATELET ESTIMATE DECREASED (NORMAL)
[2023-05-23 07:53] LABS: ANISOCYTOSIS 2+; POLYCHROMASIA 2+
[2023-05-23] MEDS: LACTOBACILLUS ACIDOPHILUS CAP (BACID) PO SCH ×3 (08:51→17:46)
[2023-05-23] MEDS: LACOSAMIDE 50 MG TAB (VIMPAT) PO SCH ×2 (08:51→20:16)
[2023-05-23] MEDS: ACETAMINOPHEN TAB 650MG DOSE (2X325MG) PO PRN ×3 (08:51→20:17)
[2023-05-23] MEDS: dexAMETHasone 1 MG TAB PO SCH (08:51)
[2023-05-23] MEDS: KCL 10MEQ/100ML SWI (KRUN) 10 MEQ in IV 1 EA IV SCH ×4 (08:52→11:57)
[2023-05-23] MEDS: guaiFENesin ER 600 MG TAB PO SCH ×2 (08:52→20:16)
[2023-05-23] MEDS: ONDANSETRON 4MG ORAL DISINTEGRATING TAB PO SCH (08:52)
[2023-05-23] MEDS: AUGMENTIN 875 MG TAB PO SCH ×2 (08:52→20:16)
[2023-05-23] MEDS: POTASSIUM CHLORIDE 10MEQ SR TABLET PO SCH (08:52)
[2023-05-23] MEDS: TOPIRAMATE (TopAMAX) 25 MG TAB PO SCH (08:52)
[2023-05-23] MEDS: NYSTATIN 100,000 UNITS/GM TOPICAL PWD 15GM TOP SCH ×2 (08:53→20:17)
[2023-05-23 09:19] VITALS: BP 90/56
[2023-05-23 14:00] VITALS: BP 97/64; TEMP 97.5; O2SAT 98
[2023-05-23] MEDS: SERTRALINE HCL 50 MG TAB PO SCH (20:16)
[2023-05-23 20:54] VITALS: BP 129/84; TEMP 97.9; O2SAT 94
[2023-05-23] MEDS: LEVEMIR (INSULIN DETEMIR) 1 UNITS/0.01ML SC SCH (21:00)
[2023-05-24] MEDS: SODIUM CHLORIDE 0.9% INJ 10 ML SYR IV SCH ×2 (05:50→18:29)
[2023-05-24 05:54] VITALS: BP 136/64; TEMP 97.2; O2SAT 95
[2023-05-24 07:21] LABS: BASO % 0.4 % (0.0-1.0); EOS # 0.1 10^3/uL (0.0-0.5); EOS % 1.9 % (0.0-3.0); HEMATOCRIT 24.8 % (36.0-47.0); HEMOGLOBIN 8.1 g/dl (12.0-15.5); LYMPH # 0.3 10^3/uL (1.5-5.0); LYMPH % 5.9 % (24.0-44.0); MEAN CORPUSCULAR HEMOGLOBIN 35.4 pg (27.0-33.0); MEAN CORPUSCULAR HGB CONC 32.7 g/dl (32.0-36.5); MEAN CORPUSCULAR VOLUME 108.3 fl (80.0-96.0); MONO # 0.8 10^3/uL (0.0-0.8); MONO % 14.7 % (2.0-8.0); NEUTROPHILS # 4.1 10^3/uL (1.5-8.5); NEUTROPHILS % 75.6 % (36.0-66.0); RED BLOOD COUNT 2.29 10^6/uL (4.00-5.40); WHITE BLOOD COUNT 5.4 10^3/uL (4.0-10.0)
[2023-05-24 07:22] LABS: PLATELET COUNT, AUTOMATED 80 10^3/uL (150-450)
[2023-05-24 07:50] LABS: BLOOD UREA NITROGEN 8 MG/DL (9-23); CALCIUM LEVEL 7.7 MG/DL (8.3-10.6); CARBON DIOXIDE LEVEL 27 MMOL/L (20-31); CHLORIDE LEVEL 107 MMOL/L (98-107); CREATININE FOR GFR 0.32 MG/DL (0.55-1.30); GLOMERULAR FILTRATION RATE > 60.0 (>45); GLUCOSE, FASTING 97 MG/DL (74-106); POTASSIUM SERUM 2.9 MMOL/L (3.5-5.1); SODIUM LEVEL 140 MMOL/L (136-145)
[2023-05-24] MEDS ORDERED: POTASSIUM CHLORIDE 10% LIQ 20MEQ/15ML UDC PO ONE (08:10)
[2023-05-24] MEDS: ACETAMINOPHEN TAB 650MG DOSE (2X325MG) PO PRN ×2 (09:51→18:29)
[2023-05-24] MEDS: LACOSAMIDE 50 MG TAB (VIMPAT) PO SCH ×2 (09:51→21:44)
[2023-05-24] MEDS: POTASSIUM CHLORIDE 10MEQ SR TABLET PO SCH (09:51)
[2023-05-24] MEDS: NYSTATIN 100,000 UNITS/GM TOPICAL PWD 15GM TOP SCH ×2 (09:51→21:45)
[2023-05-24] MEDS: AUGMENTIN 875 MG TAB PO SCH ×2 (09:51→21:44)
[2023-05-24] MEDS: guaiFENesin ER 600 MG TAB PO SCH ×2 (09:52→21:44)
[2023-05-24] MEDS: ONDANSETRON 4MG ORAL DISINTEGRATING TAB PO SCH (09:52)
[2023-05-24] MEDS: dexAMETHasone 1 MG TAB PO SCH (09:52)
[2023-05-24] MEDS: LACTOBACILLUS ACIDOPHILUS CAP (BACID) PO SCH ×3 (09:52→18:28)
[2023-05-24] MEDS: TOPIRAMATE (TopAMAX) 25 MG TAB PO SCH (09:52)
[2023-05-24 14:00] VITALS: BP 100/56; TEMP 98.2; O2SAT 95
[2023-05-24] MEDS: LEVEMIR (INSULIN DETEMIR) 1 UNITS/0.01ML SC SCH (21:00)
[2023-05-24 21:36] VITALS: BP 100/61; TEMP 98.2; O2SAT 94
[2023-05-24] MEDS: SERTRALINE HCL 50 MG TAB PO SCH (21:44)
[2023-05-25 05:29] VITALS: BP 106/52; TEMP 98.6; O2SAT 96
[2023-05-25] MEDS: SODIUM CHLORIDE 0.9% INJ 10 ML SYR IV SCH ×2 (05:29→18:28)
[2023-05-25] MEDS: AUGMENTIN 875 MG TAB PO SCH ×2 (09:47→21:49)
[2023-05-25] MEDS: LACTOBACILLUS ACIDOPHILUS CAP (BACID) PO SCH ×3 (09:48→18:28)
[2023-05-25] MEDS: POTASSIUM CHLORIDE 10MEQ SR TABLET PO SCH ×2 (09:48→21:49)
[2023-05-25] MEDS: LACOSAMIDE 50 MG TAB (VIMPAT) PO SCH ×2 (09:48→21:48)
[2023-05-25] MEDS: guaiFENesin ER 600 MG TAB PO SCH ×2 (09:48→21:48)
[2023-05-25] MEDS: TOPIRAMATE (TopAMAX) 25 MG TAB PO SCH (09:48)
[2023-05-25] MEDS: ONDANSETRON 4MG ORAL DISINTEGRATING TAB PO SCH (09:48)
[2023-05-25] MEDS: dexAMETHasone 1 MG TAB PO SCH (09:48)
[2023-05-25] MEDS: NYSTATIN 100,000 UNITS/GM TOPICAL PWD 15GM TOP SCH ×2 (09:49→21:50)
[2023-05-25 10:28] LABS: BLOOD UREA NITROGEN 6 MG/DL (9-23); CALCIUM LEVEL 8.1 MG/DL (8.3-10.6); CARBON DIOXIDE LEVEL 29 MMOL/L (20-31); CHLORIDE LEVEL 109 MMOL/L (98-107); CREATININE FOR GFR 0.34 MG/DL (0.55-1.30); GLOMERULAR FILTRATION RATE > 60.0 (>45); GLUCOSE, FASTING 97 MG/DL (74-106); POTASSIUM SERUM 2.9 MMOL/L (3.5-5.1); SODIUM LEVEL 143 MMOL/L (136-145)
[2023-05-25] MEDS: ACETAMINOPHEN TAB 650MG DOSE (2X325MG) PO PRN (13:50)
[2023-05-25 14:00] VITALS: BP 125/75; TEMP 98.1; O2SAT 93
[2023-05-25] MEDS: LEVEMIR (INSULIN DETEMIR) 1 UNITS/0.01ML SC SCH (21:00)
[2023-05-25] MEDS: SERTRALINE HCL 50 MG TAB PO SCH (21:49)
[2023-05-25] MEDS: PERCOCET 5MG/325MG TAB PO PRN (21:50)
[2023-05-25 22:00] VITALS: BP 138/85; TEMP 98.2; O2SAT 94
[2023-05-26] MEDS: SODIUM CHLORIDE 0.9% INJ 10 ML SYR IV SCH ×2 (05:07→18:21)
[2023-05-26 06:00] VITALS: BP 133/78; TEMP 97.5; O2SAT 90
[2023-05-26 07:34] LABS: BASO % 0.7 % (0.0-1.0); EOS # 0.1 10^3/uL (0.0-0.5); EOS % 1.1 % (0.0-3.0); HEMATOCRIT 27.8 % (36.0-47.0); HEMOGLOBIN 8.7 g/dl (12.0-15.5); LYMPH # 0.3 10^3/uL (1.5-5.0); LYMPH % 5.2 % (24.0-44.0); MEAN CORPUSCULAR HEMOGLOBIN 34.8 pg (27.0-33.0); MEAN CORPUSCULAR HGB CONC 31.3 g/dl (32.0-36.5); MEAN CORPUSCULAR VOLUME 111.2 fl (80.0-96.0); MONO # 0.9 10^3/uL (0.0-0.8); MONO % 14.5 % (2.0-8.0); NEUTROPHILS # 4.7 10^3/uL (1.5-8.5); NEUTROPHILS % 76.5 % (36.0-66.0); WHITE BLOOD COUNT 6.1 10^3/uL (4.0-10.0)
[2023-05-26 07:38] LABS: PLATELET COUNT, AUTOMATED 97 10^3/uL (150-450)
[2023-05-26 07:57] LABS: BLOOD UREA NITROGEN 10 MG/DL (9-23); CARBON DIOXIDE LEVEL 26 MMOL/L (20-31); CHLORIDE LEVEL 112 MMOL/L (98-107); CREATININE FOR GFR 0.33 MG/DL (0.55-1.30); GLOMERULAR FILTRATION RATE > 60.0 (>45); GLUCOSE, FASTING 111 MG/DL (74-106); POTASSIUM SERUM 3.6 MMOL/L (3.5-5.1); SODIUM LEVEL 144 MMOL/L (136-145)
[2023-05-26 09:24] VITALS: O2SAT 88
[2023-05-26 09:26] VITALS: O2SAT 90
[2023-05-26 09:29] VITALS: BP 124/76; O2SAT 92
[2023-05-26] MEDS: LACTOBACILLUS ACIDOPHILUS CAP (BACID) PO SCH ×3 (09:46→18:00)
[2023-05-26] MEDS: ONDANSETRON 4MG ORAL DISINTEGRATING TAB PO SCH (09:46)
[2023-05-26] MEDS: guaiFENesin ER 600 MG TAB PO SCH ×2 (09:47→20:49)
[2023-05-26] MEDS: TOPIRAMATE (TopAMAX) 25 MG TAB PO SCH (09:47)
[2023-05-26] MEDS: LACOSAMIDE 50 MG TAB (VIMPAT) PO SCH ×2 (09:47→20:49)
[2023-05-26] MEDS: AUGMENTIN 875 MG TAB PO SCH ×2 (09:47→20:49)
[2023-05-26] MEDS: POTASSIUM CHLORIDE 10MEQ SR TABLET PO SCH ×2 (09:47→20:49)
[2023-05-26] MEDS: dexAMETHasone 1 MG TAB PO SCH (09:47)
[2023-05-26] MEDS: NYSTATIN 100,000 UNITS/GM TOPICAL PWD 15GM TOP SCH ×2 (09:48→20:49)
[2023-05-26 14:00] VITALS: BP 112/68; TEMP 97.5; O2SAT 95
[2023-05-26] MEDS: ACETAMINOPHEN TAB 650MG DOSE (2X325MG) PO PRN (16:07)
[2023-05-26] MEDS: LEVEMIR (INSULIN DETEMIR) 1 UNITS/0.01ML SC SCH (20:29)
[2023-05-26] MEDS: SERTRALINE HCL 50 MG TAB PO SCH (20:49)
[2023-05-26 22:00] VITALS: BP 123/81; TEMP 98.8; O2SAT 94
[2023-05-27 05:41] VITALS: BP 116/81; TEMP 98.1; O2SAT 98
[2023-05-27] MEDS: SODIUM CHLORIDE 0.9% INJ 10 ML SYR IV SCH (05:42)
[2023-05-27 08:42] LABS: HEMATOCRIT 29.3 % (36.0-47.0); HEMOGLOBIN 9.1 g/dl (12.0-15.5); MEAN CORPUSCULAR HEMOGLOBIN 34.7 pg (27.0-33.0); MEAN CORPUSCULAR HGB CONC 31.1 g/dl (32.0-36.5); MEAN CORPUSCULAR VOLUME 111.8 fl (80.0-96.0); PLATELET COUNT, AUTOMATED 108 10^3/uL (150-450); RED BLOOD COUNT 2.62 10^6/uL (4.00-5.40); WHITE BLOOD COUNT 6.5 10^3/uL (4.0-10.0)
[2023-05-27] MEDS: TOPIRAMATE (TopAMAX) 25 MG TAB PO SCH (08:54)
[2023-05-27] MEDS: LACOSAMIDE 50 MG TAB (VIMPAT) PO SCH ×2 (08:54→20:21)
[2023-05-27] MEDS: POTASSIUM CHLORIDE 10MEQ SR TABLET PO SCH (08:54)
[2023-05-27] MEDS: LACTOBACILLUS ACIDOPHILUS CAP (BACID) PO SCH (08:54)
[2023-05-27] MEDS: guaiFENesin ER 600 MG TAB PO SCH (08:54)
[2023-05-27] MEDS: ONDANSETRON 4MG ORAL DISINTEGRATING TAB PO SCH (08:54)
[2023-05-27] MEDS: dexAMETHasone 1 MG TAB PO SCH (08:54)
[2023-05-27] MEDS: NYSTATIN 100,000 UNITS/GM TOPICAL PWD 15GM TOP SCH (08:55)
[2023-05-27 09:06] LABS: ALBUMIN 2.4 G/DL (3.2-5.2); ALKALINE PHOSPHATASE 87 U/L (46-116); ALT/SGPT 21 U/L (7.0-40); AST/SGOT 11 U/L (<34); BILIRUBIN,TOTAL 0.7 MG/DL (0.3-1.2); BLOOD UREA NITROGEN 11 MG/DL (9-23); CALCIUM LEVEL 9.5 MG/DL (8.3-10.6); CARBON DIOXIDE LEVEL 28 MMOL/L (20-31); CHLORIDE LEVEL 109 MMOL/L (98-107); CREATININE FOR GFR 0.32 MG/DL (0.55-1.30); GLOMERULAR FILTRATION RATE > 60.0 (>45); GLUCOSE, FASTING 103 MG/DL (74-106); POTASSIUM SERUM 3.8 MMOL/L (3.5-5.1); SODIUM LEVEL 142 MMOL/L (136-145); TOTAL PROTEIN 4.8 G/DL (5.7-8.2)
[2023-05-27] MEDS ORDERED: LORazepam 1 MG TAB PO PRN (11:55)
[2023-05-27] MEDS ORDERED: SCOPOLAMINE 1MG TRANSDERMAL PATCH TOP PRN (11:55)
[2023-05-27] MEDS ORDERED: ATROPINE SULFATE 1% OPHTH SOLN 2ML BTL SL PRN (11:55)
[2023-05-27] MEDS ORDERED: ACETAMINOPHEN TAB 650MG DOSE (2X325MG) PO PRN (13:15)
[2023-05-27] MEDS: MORPHINE 2 MG/ML 1ML VIAL IV PRN (22:27)
[2023-05-28] MEDS: dexAMETHasone 1 MG TAB PO SCH (09:39)
[2023-05-28] MEDS: LACOSAMIDE 50 MG TAB (VIMPAT) PO SCH ×2 (09:39→20:29)
[2023-05-28] MEDS: MORPHINE 2 MG/ML 1ML VIAL IV PRN ×2 (09:41→22:15)
[2023-05-29] MEDS: LACOSAMIDE 50 MG TAB (VIMPAT) PO SCH ×2 (08:35→20:21)
[2023-05-29] MEDS: dexAMETHasone 1 MG TAB PO SCH (08:35)
[2023-05-29] MEDS: MORPHINE 2 MG/ML 1ML VIAL IV PRN ×3 (08:35→20:24)
[2023-05-29] MEDS ORDERED: DEXA1TA PO (18:53)
[2023-05-29] MEDS ORDERED: VIMP50TA3 PO (18:53)
[2023-05-29] MEDS ORDERED: HYOS125TA PO (18:54)
[2023-05-29] MEDS ORDERED: ATIV1TAB10 PO (18:54)
[2023-05-29] MEDS ORDERED: MORP1SOL5 PO (18:54)
[2023-05-30] MEDS: LACOSAMIDE 50 MG TAB (VIMPAT) PO SCH (09:44)
[2023-05-30] MEDS: dexAMETHasone 1 MG TAB PO SCH (09:44)
[2023-05-30] MEDS: MORPHINE 2 MG/ML 1ML VIAL IV PRN (10:17)
[2023-06-02] MEDS ORDERED: dexAMETHasone 1 MG TAB PO SCH (09:00)
== END 2023-05-30 12:24 | disposition hospice, inpatient (51) | DRG 100 ==
LOC: M ED 11:31 → M ED INP 15:37 → ENRESERV 15:50 → M PCU 18:07 → OBSVTOIN 04-11 11:06 → M MSPAV 04-12 13:08 → M PCU 04-30 20:55 → M MSPAV 05-10 16:51
PROVIDERS: ADMIT General Practice; ATTEND Internal Medicine
PROC: 30233R1 Transfusion of Nonautologous Platelets into Peripheral Vein, Percutaneous Approach (ICD-10-PCS; 2023-04-18)
PROC: 30233N1 Transfusion of Nonautologous Red Blood Cells into Peripheral Vein, Percutaneous Approach (ICD-10-PCS; 2023-04-29)
PROC: 07DR3ZX Extraction of Iliac Bone Marrow, Percutaneous Approach, Diagnostic (ICD-10-PCS; principal; 2023-05-13 09:30)
PROC: B246ZZZ Ultrasonography of Right and Left Heart (ICD-10-PCS; 2023-05-15)
DX: G40.909 Epilepsy, unspecified, not intractable, without status epilepticus (principal); G93.41 Metabolic encephalopathy; J15.6 Pneumonia due to other Gram-negative bacteria; R57.1 Hypovolemic shock; D61.810 Antineoplastic chemotherapy induced pancytopenia; R47.01 Aphasia; G81.91 Hemiplegia, unspecified affecting right dominant side; I67.82 Cerebral ischemia; I47.1 Supraventricular tachycardia; N39.0 Urinary tract infection, site not specified; C71.1 Malignant neoplasm of frontal lobe; G72.0 Drug-induced myopathy; D61.818 Other pancytopenia; R26.89 Other abnormalities of gait and mobility; I10 Essential (primary) hypertension; E66.9 Obesity, unspecified; R74.01 Elevation of levels of liver transaminase levels; Z66 Do not resuscitate; K21.9 Gastro-esophageal reflux disease without esophagitis; Z79.899 Other long term (current) drug therapy; Z91.018 Allergy to other foods; I95.9 Hypotension, unspecified; J20.9 Acute bronchitis, unspecified; D69.6 Thrombocytopenia, unspecified; F32.A Depression, unspecified; E87.6 Hypokalemia; B95.2 Enterococcus as the cause of diseases classified elsewhere; Z51.5 Encounter for palliative care; R62.7 Adult failure to thrive; R33.9 Retention of urine, unspecified; R73.9 Hyperglycemia, unspecified; T38.0X5A Adverse effect of glucocorticoids and synthetic analogues, initial encounter; Z68.37 Body mass index [BMI] 37.0-37.9, adult; R53.81 Other malaise; R41.89 Other symptoms and signs involving cognitive functions and awareness

== ENCOUNTER → 2023-04-16 | Outpatient (RCR) | payer MEDICARE, MEDICAID, OTHER ==
[~2023-04-16] MED LIST changes: +KEPP250T5 PO; +MIRA1POW3 PO; +VITA100093 PO
== END ==
LOC: M ONCR 03-17 11:09
PROVIDERS: ATTEND General Practice
DX: C71.1 Malignant neoplasm of frontal lobe (principal)